=== PATIENT | male | born 1935 | race Caucasian/White ===

== ENCOUNTER 2017-05-22 15:17 | Inpatient (IN) | payer MEDICARE ==
[~2017-05-22] VITALS: Ht 190.5 cm; Wt 110.0 kg
[2017-05-22] VITALS (13 sets, daily range): BP systolic 116–213; BP diastolic 55–95; PULSE 86–100; RESP 16–22; TEMP 97.6–99.7; O2SAT 95–100
[~2017-05-22 15:17] MED LIST: ASPI81 PO; ATOR20TA42 PO; CLOP75 PO; COUM5TAB PO; DOXA1TAB3 PO; GARL500T PO; LISI2.5T3 PO; TAB-TAB PO; TOPR100T15 PO; VITA500T10 PO
[2017-05-22] MEDS ORDERED: SODIUM CHLORIDE 0.9% FLUSH 10 ML FLUSH IVF PRN (15:30)
[2017-05-22] MEDS ORDERED: ETOMIDATE 40 MG/20 ML VIAL ONE (15:36)
[2017-05-22] MEDS ORDERED: PROPOFOL 1000 MG/100 ML INJ 100 ML ONE (15:45)
[2017-05-22] MEDS ORDERED: ETOMIDATE 20 MG/10 ML VIAL IV PUSH ONE (16:00)
[2017-05-22] MEDS ORDERED: ROCURONIUM INJ 50 MG/5 ML VIAL IV ONE (16:00)
[2017-05-22] MEDS: PROPOFOL 1000 MG/100 ML INJ 100 ML IV SCH ×3 (16:17→23:37)
--- NOTE | 2017-05-22 16:30 | RADRPT ---
EXAM DATE/TIME: 05/22/2017 16:05 [facility] COMPARISON: No previous studies available for comparison. INDICATIONS : Post intubation. MEDICAL HISTORY : Unobtainable. SURGICAL HISTORY : Unobtainbale. ENCOUNTER: Initial ACUITY: 1 day PAIN SCORE: Non-responsive. LOCATION: Bilateral chest FINDINGS: Status post placement of an endotracheal tube which appears to be in good position. No pneumothorax. There is some mild infiltrates in both lung bases. The heart size is mildly enlarged. No definite ple ural effusions or pulmonary edema. The bony structures are grossly intact. CONCLUSION: 1. The ET tube appears to be in good position. 2. No pneumothorax. Jair Brantley MD on May 22, 2017 at 16:26 Board Certified Radiologist. This report was verified electronically.
[2017-05-22 16:42] LABS: AUTOMATED NEUTROPHIL # 16.2 TH/MM3 (1.8-7.7); BASOPHIL # 0.1 TH/MM3 (0-0.2); BASOPHIL % 0.4 % (0.0-2.0); EOSINOPHIL # 0.3 TH/MM3 (0-0.4); EOSINOPHIL % 1.4 % (0.0-4.0); HEMATOCRIT 36.3 % (39.0-51.0); HEMO FLAGS DIFF FINAL; LYMPH % 6.4 % (9.0-44.0); LYMPHOCYTE # 1.2 TH/MM3 (1.0-4.8); MEAN CELL VOLUME 98.7 FL (80.0-100.0); MEAN CORPUSCULAR HEMOGLOBIN 33.9 PG (27.0-34.0); MEAN CORPUSCULAR HGB CONC 34.4 % (32.0-36.0); MONO % 8.4 % (0.0-8.0); NEUT % 83.4 % (16.0-70.0); PLATELET COUNT 216 TH/MM3 (150-450); RED BLOOD COUNT 3.68 MIL/MM3 (4.50-5.90); RED CELL DISTRIBUTION WIDTH 14.1 % (11.6-17.2); WHITE BLOOD COUNT 19.5 TH/MM3 (4.0-11.0)
[2017-05-22 16:44] LABS: APTT (PATIENT) 38.2 SEC (24.3-30.1); INTERNATIONAL NORMALIZED RATIO 2.3 RATIO; PROTHROMBIN TIME - PATIENT 26.9 SEC (9.8-11.6)
[2017-05-22 17:08] LABS: ANION GAP 6 MEQ/L (5-15); BICARBONATE 25.5 MEQ/L (21.0-32.0); BLOOD UREA NITROGEN 26 MG/DL (7-18); CHLORIDE 103 MEQ/L (98-107); CREATINE KINASE 317 U/L (39-308); GLOMERULAR FILTRATION RATE 59 ML/MIN (>89); SODIUM (NA) 134 MEQ/L (136-145)
[2017-05-22 17:10] LABS: POTASSIUM 4.9 MEQ/L (3.5-5.1)
[2017-05-22 17:23] LABS: CKMB 3.2 NG/ML (0.5-3.6)
--- NOTE | 2017-05-22 17:26 | PD ---
HPI Chief Complaint: Fall Time Seen by Provider: 15:24 Travel History International Travel<30 days: No Contact w/Intl Traveler<30days: No Traveled to known affect area: No History of Present Illness HPI 81-year-old male arrives to the ER by EMS. He was seen at the outpatient office and there was found to have atrial fibrillation with RVR and a heart rate of 150. EMS was activated and administered diltiazem. The patient takes Coumadin due to a history of atrial fibrillation. He reports compliance. 1-1/ 2 days prior the patient was found on the floor in his house. The believes he walked into the doorway striking his left chest wall in the region of the clavicle and has since had increasing bruising and tenderness there. Earlier this morning he reported to his that it felt as though his throat was closing prompting primary care provider visit. Progression of the sensation of his throat closing was noted. Difficulty swallowing also noted. PFSH Past Medical History Atrial Fibrillation: Yes Cardiovascular Problems: Yes Coronary Artery Disease: Yes ?: Not Social History Alcohol Use: No Tobacco Use: Yes Substance Use: No Allergies-Medications (Allergen,Severity, Reaction): Coded Allergies: No Known Allergies (Verified , 01/07/08) Reported Meds & Prescriptions Reported Meds & Active Scripts Active Reported Coumadin (Warfarin) 5 Mg Tab 5 Mg PO DAILY Toprol XL (Metoprolol Succinate) 100 Mg Tab 100 Mg PO DAILY Lisinopril 2.5 Mg Tab 2.5 Mg PO DAILY Cardura (Doxazosin Mesylate) 1 Mg Tab 1 Mg PO DAILY Lipitor (Atorvastatin Calcium) 20 Mg Tab 20 Box PO HS Aspirin 81 Mg Chew 81 Mg CHEW DAILY Review of Systems Except as stated in HPI: all other systems reviewed are Neg General / Constitutional: No: Fever Respiratory: Positive: Shortness of Breath Physical Exam Narrative GENERAL: 81-year-old male well-nourished well-developed. patient's voice is somewhat hoarse SKIN: Focused skin assessment warm/dry. HEAD: Atraumatic. Normocephalic. EYES: Pupils equal and round. No scleral icterus. No injection or drainage. ENT: No nasal bleeding or discharge. Mucous membranes pink and moist. NECK: Contusion bruising is noted. No JVD. CARDIOVASCULAR: Regular rate and rhythm. No murmur appreciated. RESPIRATORY: Ecchymosis about the left neck and left anterior chest wall with prominent contusion/likely hematoma in the area. GASTROINTESTINAL: Abdomen soft, non-tender, nondistended. Hepatic and splenic margins not palpable. MUSCULOSKELETAL: No obvious deformities. No clubbing. No cyanosis. No edema. NEUROLOGICAL: Awake and alert. No obvious cranial nerve deficits. Motor grossly within normal limits. Normal speech. PSYCHIATRIC: Appropriate mood and affect; insight and judgment normal. Data Data Last Documented VS Vital Signs Date Time Temp Pulse Resp B/P Pulse Ox O2 Delivery O2 Flow Rate FiO2 05/22/17 17:50 95 100 05/22/17 16:29 100 16 213/88 Ventilator 05/22/17 15:38 2 05/22/17 15:22 97.6 Vital signs reviewed Orders Electrocardiogram (05/22/17 15:24) Basic Metabolic Panel (Bmp) (05/22/17 15:24) Ckmb (Isoenzyme) Profile (05/22/17 15:24) Complete Blood Count With Diff (05/22/17 15:24) Prothrombin Time / Inr (Pt) (05/22/17 15:24) Act Partial Throm Time (Ptt) (05/22/17 15:24) Troponin I (05/22/17 15:24) Chest, Single Ap (05/22/17 15:24) Ecg Monitoring (05/22/17 15:24) Iv Access Insert/Monitor (05/22/17 15:24) Oximetry (05/22/17 15:24) Oxygen Administration (05/22/17 15:24) Sodium Chloride 0.9% Flush (Ns Flush) (05/22/17 15:30) Etomidate Inj (Amidate Inj) (05/22/17 15:36) Propofol 1000 Mg/100 Ml Inj (Diprivan 10 (05/22/17 15:45) Etomidate Inj (Amidate Inj) (05/22/17 16:00) Rocuronium Inj (Zemuron Inj) (05/22/17 16:00) Propofol 1000 Mg/100 Ml Inj (Diprivan 10 (05/22/17 16:00) Ct Thorax/ Chest W Iv Contrast (05/22/17 ) CKMB (05/22/17 16:00) CKMB% (05/22/17 16:00) Arterial Blood Gas (Abg) (05/22/17 ) Diltiazem Inj (Cardizem Inj) (05/22/17 17:30) Ct Soft Tiss Neck W/O Iv Cont (05/22/17 ) Ct Brain W/O Iv Contrast(Rout) (05/22/17 17:39) Ceftriaxone Inj (Rocephin Inj) (05/22/17 18:00) Azithromycin Inj (Zithromax Inj) (05/22/17 18:00) Blood Culture (05/22/17 17:46) Iohexol 350 Inj (Omnipaque 350 Inj) (05/22/17 18:23) Hemoglobin (Hgb) (05/22/17 20:00) Labs Laboratory Tests Test 05/22/17 05/22/17 16:00 17:42 White Blood Count 19.5 TH/MM3 Red Blood Count 3.68 MIL/MM3 Hemoglobin 12.5 GM/DL Hematocrit 36.3 % Mean Corpuscular Volume 98.7 FL Mean Corpuscular Hemoglobin 33.9 PG Mean Corpuscular Hemoglobin 34.4 % Concent Red Cell Distribution Width 14.1 % Platelet Count 216 TH/MM3 Mean Platelet Volume 9.9 FL Neutrophils (%) (Auto) 83.4 % Lymphocytes (%) (Auto) 6.4 % Monocytes (%) (Auto) 8.4 % Eosinophils (%) (Auto) 1.4 % Basophils (%) (Auto) 0.4 % Neutrophils # (Auto) 16.2 TH/MM3 Lymphocytes # (Auto) 1.2 TH/MM3 Monocytes # (Auto) 1.6 TH/MM3 Eosinophils # (Auto) 0.3 TH/MM3 Basophils # (Auto) 0.1 TH/MM3 CBC Comment DIFF FINAL Differential Comment Prothrombin Time 26.9 SEC Prothromb Time International 2.3 RATIO Ratio Activated Partial 38.2 SEC Thromboplast Time Sodium Level 134 MEQ/L Potassium Level 4.9 MEQ/L Chloride Level 103 MEQ/L Carbon Dioxide Level 25.5 MEQ/L Anion Gap 6 MEQ/L Blood Urea Nitrogen 26 MG/DL Creatinine 1.19 MG/DL Estimat Glomerular Filtration 59 ML/MIN Rate Random Glucose 114 MG/DL Calcium Level 8.6 MG/DL Total Creatine Kinase 317 U/L Creatine Kinase MB 3.2 NG/ML Creatine Kinase MB % 1.0 % Troponin I LESS THAN 0.02 NG/ML Blood Gas Puncture Site LT RADIAL Blood Gas Patient Temperature 98.6 Blood Gas HCO3 23 mmol/L Blood Gas Base Excess -1.7 mmol/L Blood Gas Oxygen Saturation 98 % Arterial Blood pH 7.37 Arterial Blood Partial 41 mmHg Pressure CO2 Arterial Blood Partial 247 mmHG Pressure O2 Arterial Blood Oxygen Content 16.1 Vol % Arterial Blood 1.1 % Carboxyhemoglobin Arterial Blood Methemoglobin 0.7 % Blood Gas Hemoglobin 11.3 G/DL Blood Gas Ventilator Setting [facility] 16/500/5/100 Blood Gas Inspired Oxygen 100 % MDM Medical Decision Making Medical Screen Exam Complete: Yes Emergency Medical Condition: Yes Medical Record Reviewed: Yes Differential Diagnosis Anemia, compression of the airway, stridor, hypoxia, pneumothorax Narrative Course AG 6 AB.37/41/23 abgPo2 247 PRVC 16/500/5/100 INR 2.3 Total creatine kinase 317 Tn < 0.02 EKG: atrial fibrillation, rate 94 CBC & BMP Diagram 05/22/17 16:00 Last 24 hours Impressions Chest X-Ray 05/22/17 1524 Signed Impressions: Service Date/Time: , May 22, 2017 16:05 - CONCLUSION: 1. The ET tube appears to be in good position. 2. No pneumothorax. Jair Brantley MD Pt will be admitted to [facility]. D/w Dr Clifford. Critical Care Narrative Aggregate critical care time was 35 minutes. Time to perform other separately billable procedures was not included in the critical care time. My time did not include minutes spent treating any other patients simultaneously or on activities that did not directly contribute to the patient's treatment. The services I provided to this patient were to treat and/or prevent clinically significant deterioration that could result in: asphyxia, anoxia, cardiac arrest, respiratory arrest I provided critical care services requiring my management, as noted below: Chart data review, documentation time, medication orders and management, vital sign assessments/reviewing monitor data, ordering and reviewing lab tests, ordering and interpreting/reviewing x-rays and diagnostic studies, care of the patient and discussion of the patient with the admitting physicians. Procedures Procedure Narrative After the risks and benefits were discussed the following procedure was performed: INTUBATION: The patient was put in optimal position for the procedure. Rapid sequence intubation was initiated by me using 20 milligrams of etomidate IV and 50 milligrams of rocuronium IV. The patient was intubated with a 8-0 cuffed endotracheal tube. Tube placement was confirmed by visualization of the tube and balloon passing through the cords, capnometry and subsequent chest x-ray. Breath sounds were equal and well aerated bilaterally postintubation. No breath sounds over stomach. Patient tolerated procedure well. Diagnosis Primary Impression: Hematoma of neck Qualified Code: S10.93XA - Hematoma of neck, initial encounter Additional Impressions: Stridor Atrial fibrillation Qualified Code: I48.91 - Atrial fibrillation, unspecified type Admitting Information Admitting Physician Requests: Admit Carlton Mayo MD May 22, 2017 17:25
[2017-05-22] MEDS ORDERED: DILTIAZEM HCL 25 MG/5 ML VIAL IV ONE (17:30)
[2017-05-22 17:47] LABS: BLOOD GAS BASE EXCESS -1.7 mmol/L (-2-2); BLOOD GAS CARBOXYHEMOGLOBIN 1.1 % (0-4); BLOOD GAS HCO3 23 mmol/L (22-26); BLOOD GAS METHEMOGLOBIN 0.7 % (0-2); BLOOD GAS O2 HGB SATURATION 98 % (90-100); BLOOD GAS OXYGEN CONTENT 16.1 Vol % (12.0-20.0); BLOOD GAS PCO2 41 mmHg (38-42); BLOOD GAS PO2 247 mmHG (61-120); BLOOD GAS TOTAL HGB 11.3 G/DL (12.0-16.0); TEMP CORR TO 98.6
[2017-05-22 17:48] LABS: CRITICAL VALUE YES; DRAW SITE LT RADIAL; FIO2 100 %; NUMBER OF ARTERIAL PUNCTURES 2; STAT YES; ULNAR PULSE Y
[2017-05-22] MEDS ORDERED: AZITHROMYCIN INJ 500 MG in SODIUM CHLOR 0.9% 250 ML INJ 250 ML IV ONE (18:00)
[2017-05-22] MEDS ORDERED: cefTRIAXone INJ 1,000 MG in SODIUM CHLORIDE 0.9% INJ 100 ML IV ONE (18:00)
[2017-05-22] MEDS ORDERED: IOHEXOL 350 MG/ML 10 ML VIAL (for RAD DIAG) IV ONE (18:23)
[2017-05-22] MEDS ORDERED: LISI2.5T3 PO (18:45)
[2017-05-22] MEDS ORDERED: TOPR100T PO (18:45)
[2017-05-22] MEDS ORDERED: CARD1TAB PO (18:45)
[2017-05-22] MEDS ORDERED: COUM5TAB PO (18:45)
[2017-05-22] MEDS ORDERED: ASPI81CH CHEW (18:45)
[2017-05-22] MEDS ORDERED: LIPI20TA PO (18:45)
--- NOTE | 2017-05-22 18:58 | RADRPT ---
EXAM DATE/TIME: 05/22/2017 18:00 [facility] COMPARISON: No previous studies available for comparison. INDICATIONS : Fall three days ago. RADIATION DOSE: 52.56 CTDIvol (mGy) MEDICAL HISTORY : Cardiovascular disease. SURGICAL HISTORY : None. ENCOUNTER: Initial ACUITY: 3 days PAIN SCALE: Non-responsive LOCATION: cranial TECHNIQUE: Multiple contiguous axial images were obtained of the head. Using automated exposure control and adj ustment of the mA and/or kV according to patient size, radiation dose was kept as low as reasonably a chievable to obtain optimal diagnostic quality images. DICOM format image data is available electro nically for review and comparison. FINDINGS: There is some streak artifact about the low convexity images due to motion. CEREBRUM: Ventricles are moderately enlarged, appropriate for age. There is a focal hypodensity adjacent to th e lateral margin of the frontal horn on the right side which measures 1 cm. This appears to extend i nto the anterior limb of the right internal capsule. No evidence of midline shift. No evidence of e xtra-axial fluid or blood. No intraventricular blood. POSTERIOR FOSSA: The cerebellum and brainstem are intact. The 4th ventricle is midline. The cerebellopontine angle i s unremarkable. EXTRACRANIAL: The visualized portion of the orbits is intact. SKULL: The calvaria is intact. No evidence of skull fracture. CONCLUSION: 1 cm hypodensity in the right caudate and internal capsule may represent an old infarction. However, in the absence of prior films and with the history of recent trauma, recommend further characterizat ion of this finding with MRI of brain with and without contrast. Matthew Hill MD on May 22, 2017 at 18:52 Board Certified Radiologist. This report was verified electronically.
--- NOTE | 2017-05-22 19:06 | RADRPT ---
EXAM DATE/TIME: 05/22/2017 18:15 This report includes an Addendum and supersedes previous reports for this exam. [facility] COMPARISON: No previous studies available for comparison. INDICATIONS : Shortness of breath, left neck mass. IV CONTRAST: 60 cc Omnipaque 350 (iohexol) IV RADIATION DOSE: 9.45 CTDIvol (mGy) MEDICAL HISTORY : Cardiovascular disease. SURGICAL HISTORY : None. ENCOUNTER: Initial ACUITY: 3 days PAIN SCALE: Non-responsive LOCATION: chest TECHNIQUE: Volumetric scanning of the chest was performed. Using automated exposure control and adjustment of t he mA and/or kV according to patient size, radiation dose was kept as low as reasonably achievable to obtain optimal diagnostic quality images. DICOM format image data is available electronically for review and comparison. FINDINGS: LUNGS: There are patchy areas of infiltrate in the posterior lower lungs bilaterally, right greater than lef t. There is also a solitary nodular density at the lateral lower right lung adjacent to the pleura m easuring 12 mm. PLEURA: There is no pleural thickening or pleural effusion. MEDIASTINUM: There is a 2.6 cm oval mass in the right paraspinal region extending from subcarinal inferiorly 4 cm. No evidence of middle mediastinal adenopathy. The trachea and esophagus is deviated towards the ri ght. AXILLAE: There is some induration of the fat in the left axilla, but no axillary adenopathy seen. SKELETAL: Within normal limits for patient age. MISCELLANEOUS: There is same multilobular dominant mass in the left supraclavicular region which measures 11.3 cm in width and 7.7 cm in superior-inferior extent. The mass does extend posterior to the clavicle and ap pears to have at least 2 components which are in contact with each other. Mean CT density 66 Hounsfi eld units. No associated calcifications. 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 There is also a midthorac ic right paraspinal mass measuring 4 cm in superior-inferior extent and an 11 mm right pulmonary nodu le. Recommend PET/CT scan to evaluate metabolic behavior and to help in decision making regarding bi opsy planning. Matthew Hill MD on May 22, 2017 at 18:57 Board Certified Radiologist. This report was verified electronically. ADDENDUM: Additional history is now available; recent fall and the patient is on anticoagulation. The large ma ss in the left supraclavicular region has an appearance which is entirely consisted with a hematoma. The mediastinal adenopathy in the 1 cm nodule, however, are not characteristic of trauma. Recommend performing followup CT in one month specifically does the if the lung and mediastinal findings persi st and if so, then consideration of PET/CT scan. Matthew Hill MD on May 22, 2017 at 20:23 Board Certified Radiologist. This report was verified electronically.
--- NOTE | 2017-05-22 19:25 | RADRPT ---
EXAM DATE/TIME: 05/22/2017 18:00 [facility] COMPARISON: CT THORAX W CONTRAST, May 22, 2017, 18:15. INDICATIONS : Left neck mass impinging on trachea. RADIATION DOSE: 48.33 CTDIvol (mGy) MEDICAL HISTORY : Cardiovascular disease. SURGICAL HISTORY : None. ENCOUNTER: Initial ACUITY: 3 days PAIN SCORE: Non-responsive LOCATION: Left neck TECHNIQUE: Volumetric scanning of the neck was performed. Using automated exposure control and adjustment of th e mA and/or kV according to patient size, radiation dose was kept as low as reasonably achievable to obtain optimal diagnostic quality images. DICOM format image data is available electronically for re view and comparison. FINDINGS: There is a dominant mass in the left supraclavicular region which appears to have 2 separate componen ts, one solid and located medially and the other having a portion which is low density and located ad jacent to the other lesion, but more lateral. The mass in total measures in excess of 11.4 cm in anthony gth. There is also prominent induration of the supraclavicular and subcutaneous fat. There is a 3rd component which is separate from the supraclavicular component which is in the posterior triangle of the lower left neck and appears to surround the scapular spine. The trachea is deviated towards the right. There is homogeneous enhancement in the thyroid gland without evidence of nodule. Preverteb ral soft tissues are normal thickness. No evidence of adenopathy in the lateral compartment of the l eft or right neck. The osseous structures are grossly intact other than degenerative changes in the posterior elements of the lower cervical spine. CONCLUSION: Abnormal appearance the left supraclavicular region with greater the 11 cm mass which probably repres ents 3 adjacent components in contact with each other. One of the components has cystic or necrotic area. There is also a 4th opacity in the posterior lower left neck which surrounds the scapular spin e and is more infiltrative in appearance. The findings are highly suspicious for malignancy. Matthew Hlil MD on May 22, 2017 at 19:17 Board Certified Radiologist. This report was verified electronically.
--- NOTE | 2017-05-22 19:45 | HHI.HP ---
HPI Service Critical Care Medicine Primary Care Physician Unknown Admission Diagnosis Neck Hematoma, Stridor, Intubation Diagnosis: Travel History International Travel<30 Days: No Contact w/Intl Traveler <30 Da: No Traveled to Known Affected Are: No History of Present Illness 81 WM with PMH of HTN, Atrial fibrillation with RVR on chronic anticoagulation with warfarin, CAD with prior stent, anklyosing spondylitis who was visiting his son in [place] when he fell on 05/20/17 at 01:30 in the morning when he got up to go to the bathroom. He developed some bruising of his left shoulder when he reportedly hit it on the doorway. He had no LOC or reported head trauma and his mental status was baseline.. He required assistance from family members to get back up. He was able to move his shoulder well so they did not seek medical attention. His supraclavicular region was very swollen the next day. At around 3 am today he awoke complaining of difficulty breathing and difficulty swallowing. While on an airline flight returning home today, his noted that his voice was changing. He did not eat anything all day because of the difficulty with swallowing. He immediately went to his primary care physician's office, Dr. Yanely Cantu, who immediately requested [facility] for transfer. Upon arrival to the ED he was noted to have stridor with large hematoma L supraclavicular region, swelling of left neck, ecchymosis overlying left chest wall.. He was intubated for maintenance of airway by Dr. Mayo without difficulty. He was also in A fib RVR with rate in 150s, now rate controlled after Cardizem [address] chest demonstrates 11 cm mass left supraclavicular region that per discussion with Dr. Hill is consistent with hematoma from fall. There is a 1.1 cm Right pulmonary nodule, 2.6 cm subcarinal mass and mediastinal lymphadenopathy which he recommends followup with CT chest in about 2 weeks after post traumatic changes resolve and, if persist, followup with PET. His INR is 2.3. His states that yesterday the neck and shoulder was more swollen than today but that the bruising is much worse today. He has recently been followed by Dr. Harry as an outpatient for 18 month history of cough. His states he had CXR but no prior CT chest. He was on 30 day course of predisone for Ankylosing spondylitis, completed 2 weeks ago. Reportedly had a "steroid shot" in Dr. Harry's office 2 weeks ago. Review of Systems ROS Limitations: Clinical Condition, Intubated Past Family Social History Allergies: Coded Allergies: No Known Allergies (Verified , 01/07/08) Past Medical History HTN Atrial fibrillation with chronic anticoagulation with warfarin for over 15 years Hyperlipidemia CAD with OK with stents 12-13 years ago. Ankylosing spondylitis - Was on 30 day course of prednisone. Stopped prednisone 2 weeks. Took injection of steroid [address] Harry for cough. Seasonal allergies Sleep apnea - not compliant with CPAP PAD h/o recurrent UTI prior to TURP Reactive airway disease Vitamin D deficiency Basal cell carcinoma face GERD; Recinos's esophagus Mild dementia Iron deficiency anemia Past Surgical History EGD - Dr. Ibarra? Recinos's esophagus Choleystectomy Lumbar diskectomy 25 years ago. Eye procedure for ocular Varicella Zoster, L eye. Basal cell carcinoma resected face bilateral temples TURP 10/2016 Reported Medications Med rec had several medications listed which patient's states he is no longer taking. I have discontinued them from med rec. She states his current meds are: Warfarin 5 mg po daily MTW, 2.5 mg daily , Fri, Fri , Sun Metoprolol 25 mg po daily Supplements: Red yeast rice Vitamin D Vitamin C Co Q 10 PerserVision Family History Father of liver cancer at age 69. Mother lived to age 93. Sister with breast cancer Sister with lung cancer Social History quit smoking age 35 Occasional EtOH now. Used to drink 13-14 beers per day in his 30s through 50s and then quit when he had OK. No illicit drug use. Ambulates with assistance of cane/walker Physical Exam Vital Signs Vital Signs Date Time Temp Pulse Resp B/P Pulse Ox O2 Delivery O2 Flow Rate FiO2 05/22/17 19:07 100 50 05/22/17 18:58 86 16 151/68 99 Auto-Vent 50 05/22/17 17:50 95 100 05/22/17 16:29 100 16 213/88 100 Ventilator 05/22/17 15:55 100 100 05/22/17 15:38 99 Nasal Cannula 2 05/22/17 15:38 99 05/22/17 15:22 97.6 93 22 130/73 96 Physical Exam Drips: Propofol 40 mcg/kg/min. GENERAL: Elderly male who is orotracheally intubated, sedated. HEAD: Normocephalic. EYES: Pupils equal and round, 3mm reactive bilaterally. No scleral icterus. No injection or drainage. ENT: Mucous membranes pink and moist. No nasal bleeding. NECK: Swelling over left neck from inferior to left mastoid process and then radiating anteriorly. Trachea deviated to right. Ecchymosis and palpable hematoma L supraclavicular space, size of a large lemon. Ecchymosis extends along left chest wall just superior to the nipple and then radiating to more inferiorly along lateral ribs. CARDIOVASCULAR: irregularly irregular, rate in 80s, A fib on monitor. No murmurs rubs or gallops. RESPIRATORY: No accessory muscle use. Clear to auscultation. Breath sounds equal bilaterally. GASTROINTESTINAL: Abdomen soft, non-tender, nondistended. Bowel sounds present: : Harvey in place with yellow urine output. MUSCULOSKELETAL: Extremities without clubbing, cyanosis. There is swelling of left elbow at the olecrenon. Dressing in place. Radial pulses palpable bilaterally. NEUROLOGICAL: Eyes flutter open to voice. No obvious cranial nerve deficits. Follows commands with hand squeeze bilaterally and with moving bilateral lower extremities. Laboratory Laboratory Tests Test 05/22/17 05/22/17 16:00 17:42 White Blood Count 19.5 Red Blood Count 3.68 Hemoglobin 12.5 Hematocrit 36.3 Mean Corpuscular Volume 98.7 Mean Corpuscular Hemoglobin 33.9 Mean Corpuscular Hemoglobin 34.4 Concent Red Cell Distribution Width 14.1 Platelet Count 216 Mean Platelet Volume 9.9 Neutrophils (%) (Auto) 83.4 Lymphocytes (%) (Auto) 6.4 Monocytes (%) (Auto) 8.4 Eosinophils (%) (Auto) 1.4 Basophils (%) (Auto) 0.4 Neutrophils # (Auto) 16.2 Lymphocytes # (Auto) 1.2 Monocytes # (Auto) 1.6 Eosinophils # (Auto) 0.3 Basophils # (Auto) 0.1 CBC Comment DIFF FINAL Differential Comment Prothrombin Time 26.9 Prothromb Time International 2.3 Ratio Activated Partial 38.2 Thromboplast Time Sodium Level 134 Potassium Level 4.9 Chloride Level 103 Carbon Dioxide Level 25.5 Anion Gap 6 Blood Urea Nitrogen 26 Creatinine 1.19 Estimat Glomerular Filtration 59 Rate Random Glucose 114 Calcium Level 8.6 Total Creatine Kinase 317 Creatine Kinase MB 3.2 Creatine Kinase MB % 1.0 Troponin I LESS THAN 0.02 Blood Gas Puncture Site LT RADIAL Blood Gas Patient Temperature 98.6 Blood Gas HCO3 23 Blood Gas Base Excess -1.7 Blood Gas Oxygen Saturation 98 Arterial Blood pH 7.37 Arterial Blood Partial 41 Pressure CO2 Arterial Blood Partial 247 Pressure O2 Arterial Blood Oxygen Content 16.1 Arterial Blood 1.1 Carboxyhemoglobin Arterial Blood Methemoglobin 0.7 Blood Gas Hemoglobin 11.3 Blood Gas Ventilator Setting [facility] 16/500/5/100 Blood Gas Inspired Oxygen 100 Date/Time Procedure Status Source Growth 05/22/17 18:25 Aerobic Blood Culture Received Blood Peripheral Pending 05/22/17 18:25 Anaerobic Blood Culture Received Blood Peripheral Pending Result Diagram: 05/22/17 1600 05/22/17 1600 Assessment and Plan Problem List: (1) Atrial fibrillation ICD Code: I48.91 Status: Acute (2) Stridor ICD Code: R06.1 Status: Acute (3) Hematoma of neck ICD Code: S10.93XA Status: Acute (4) Mild dementia ICD Code: F03.90 Status: Acute (5) HLD (hyperlipidemia) ICD Code: E78.5 Status: Acute (6) Fall ICD Code: W19.XXXA Status: Acute (7) Leukocytosis ICD Code: D72.829 Status: Acute (8) Hyponatremia ICD Code: E87.1 Status: Acute (9) CAD (coronary artery disease) ICD Code: I25.10 Status: Chronic (10) Coagulopathy ICD Code: D68.9 Status: Chronic (11) Essential hypertension ICD Code: I10 Status: Chronic (12) Acute respiratory failure ICD Code: J96.00 Status: Acute (13) Ankylosing spondylitis ICD Code: M45.9 Status: Chronic (14) Anemia associated with acute blood loss ICD Code: D62 Status: Acute (15) H/O tobacco use, presenting hazards to health ICD Code: Z87.891 Status: Chronic (16) Contusion of elbow, left ICD Code: S50.02XA Status: Acute Assessment and Plan NEURO: Fall History of mild dementia Propofol for sedation Target RASS -2 CT brain - 1 cm hypodensity and right caudate and internal capsule which may represent an old infarction. MRI with and without contrast recommended. states patient has never had brain imaging in the past. Will obtain MRI. RESP: Acute respiratory failure secondary to Large L supraclavicular hematoma (11 cm) , swelling Left posterior neck causing trachea shift and airway compromise History of tobacco abuse Ankylosing spondylitis 1.17 cm right pulmonary nodule Intubated by ED physician for airway maintenance 05/22. Suspect he will require intubation for few days while hematoma and edema resolve. Ventilator Bundle. Albuterol every [address] chest/neck 1.1 cm R pulmonary nodule, peripherally located adjacent to pleura. 2.6 cm mass in right paraspinous region, extending from subcarinal level. 11.3 cm x 7.3 cm L supraclavicular hematoma. Extends posterior to clavicle. No active extravasation. Discussed with Dr. Hill. Recommends repeat CT in 2-4 weeks and if these findings persist, obtain outpatient PET scan. Patient is known to Dr. Harry. Will consult pulmonology to ensure followup of pulmonary nodule. CV: Atrial fibrillation with RVR on chronic anticoagulation with warfarin. Hypertension History of hyperlipidemia Coronary artery disease with prior stents about 12 years ago Atrial fibrillation is currently rate controlled in the 80s after cardizem bolus , will monitor. Home dose of metoprolol succinate is 25 mg daily, on hold currently as SBP is in 100s on propofol for sedation. Patient was no longer on statin per so removed from med rec. Hold warfarin as per below. Obtain 2 D Echo given chronic SOB/cough. GI: GERD Recinos's esophagus OGT LIWS FEN/RENAL: Mild hyponatremia Harvey in place. Monitor intake and output. Monitor electrolytes. Replace electrolytes as indicated per ICU electrolyte replacement protocol. D5 0.9 NaCl at 84 mL per hour ID: Aspiration Blood cultures have been sent in ED. Obtain sputum culture. He seems azithromycin and Rocephin in the ED. We'll cover with Zosyn 3.375 IV every 6 hours to cover for aspiration pneumonia. CT chest - bilateral infiltrates posterior lower lung mcbride.(in addition to above discussed finding) HEME: Anemia Coagulopathy secondary to chronic warfarin Hemoglobin is 12.5 with no recent priors for comparison (hemoglobin 14.5 12/2007) . Has very large hematoma with clinical worsening over the last 24 hours, though this admittedly may be due to worsening edema around the hematoma rather than hematoma expansion. Nonetheless at this point, given airway compromise and risk for more prolonged intubation if hematoma expands, will address coagulopathy with vitamin K 5 mg IV (unable to give po route because ED unable to place OGT). Hold warfarin. Repeat INR in am. ENDO: Euglycemic.The patient was previously on 30 day course of prednisone; off prednisone x 2weeks. Monitor for evidence of relative adrenal insufficiency. MSK: Acute left elbow contusion F/u xray left elbow. PROPH: Hold pharmacologic DVT prophylaxis due to INR 2.3, hematoma. SCDs for DVT prophylaxis. Protonix 40 mg IV daily for stress ulcer prophylaxis and history of GERD ACCESS: Peripheral IV providing adequate access at this time. PT consult Called and updated. Discussed with radiologist, Dr. Hill. Discussed with Dr. Mayo and discussed with ED RN Level 3 H and P. Problem Qualifiers (1) Atrial fibrillation: Qualified Code: I48.91 - Atrial fibrillation, unspecified type (2) Hematoma of neck: Qualified Code: S10.93XA - Hematoma of neck, initial encounter Hannah Clifford MD May 22, 2017 19:45
[2017-05-22] MEDS ORDERED: PHYTONADIONE INJ 10 MG in SODIUM CHLORIDE 0.9% INJ 50 ML IV ONE (20:15)
[2017-05-22 20:34] LABS: BLOOD, URINE NEG (NEG); COMMENT (UR) CATH-CULTURE IND; CULTURE IF INDICATED CATH CULTURE IND; GLUCOSE,URINE NEG (NEG); HYALINE CAST, URINE 6 /lpf (RARE); KETONE, URINE NEG (NEG); MUCUS URINE FEW /lpf (OCC); NITRITE,URINE NEG (NEG); PH, URINE 5.5 (5.0-8.5); SQUAMOUS EPITHELIAL CELL URINE 1 /hpf (0-5); URINE COLOR YELLOW (YELLW/STRAW)
[2017-05-22] MEDS ORDERED: PHYTONADIONE 10 MG/D5W 50 ML IV ONE ×2 (20:45)
[2017-05-22] MEDS ORDERED: PHYTONADIONE IV ONE (21:00)
[2017-05-22] MEDS ORDERED: SODIUM CHLORIDE 0.9% IV ONE (21:00)
[2017-05-22] MEDS ORDERED: ACETAMINOPHEN 325 MG TAB PO PRN (21:15)
[2017-05-22] MEDS ORDERED: RESP: ALBUTEROL 2.5 MG/3 ML NEB (PRN) INH (21:15)
[2017-05-22] MEDS ORDERED: LACTULOSE SYRUP 20 GM/30 ML CUP PO PRN (21:15)
[2017-05-22] MEDS ORDERED: CHLORHEXIDINE GLUCONATE 2 % 1 PACK (2 CLOTHS) TOP PRN (21:15)
[2017-05-22] MEDS ORDERED: ONDANSETRON HCL 4 MG/2 ML VIAL IV PRN (21:15)
[2017-05-22] MEDS ORDERED: BISACODYL 10 MG SUPP RECTAL PRN (21:15)
[2017-05-22] MEDS ORDERED: SENNOSIDES 8.6 MG TAB PO PRN (21:15)
[2017-05-22] MEDS ORDERED: MISCELLANEOUS NURSING INFORMATION XX SCH (21:15)
[2017-05-22] MEDS ORDERED: SODIUM CHLORIDE 0.9% FLUSH 10 ML FLUSH IV FLUSH PRN (21:15)
[2017-05-22] MEDS ORDERED: MAGNESIUM HYDROXIDE SUSP 30 ML CUP PO PRN (21:15)
[2017-05-22] MEDS: PIPERACIL-TAZO 3.375 GM PREMIX 50 ML IV SCH (21:42)
[2017-05-22] MEDS: DEXT 5%-NACL 0.9% 1000 ML INJ 1,000 ML IV SCH (21:42)
[2017-05-22] MEDS ORDERED: POTASSIUM CHLOR 40 MEQ PREMIX 100 ML IV PRN ×2 (21:45)
[2017-05-22] MEDS ORDERED: POTASSIUM PHOSPHATE INJ 30 MMOL in SODIUM CHLOR 0.9% 250 ML INJ 250 ML IV PRN (21:45)
[2017-05-22] MEDS ORDERED: POTASSIUM PHOSPHATE MONOBASIC 500 MG TAB PO/TUBE PRN (21:45)
[2017-05-22] MEDS ORDERED: POTASSIUM CHLORIDE 25 MEQ EFFERVESCENT TAB PO PRN (21:45)
[2017-05-22] MEDS ORDERED: MAGNESIUM SULFATE INJ 2 GM in SODIUM CHLORIDE 0.9% INJ 96 ML IV PRN (21:45)
[2017-05-22] MEDS ORDERED: MAGNESIUM SULFATE INJ 4 GM in SODIUM CHLORIDE 0.9% INJ 92 ML IV PRN (21:45)
[2017-05-22] MEDS ORDERED: POTASSIUM CHLOR 20 MEQ PREMIX 100 ML IV PRN ×2 (21:45)
[2017-05-22] MEDS ORDERED: SODIUM PHOSPHATE INJ 30 MMOL in SODIUM CHLOR 0.9% 250 ML INJ 240 ML IV PRN (21:45)
[2017-05-22] MEDS ORDERED: POTASSIUM PHOSPHATE MONOBASIC 500 MG TAB PO PRN (21:45)
[2017-05-22] MEDS ORDERED: MAGNESIUM OXIDE 400 MG TAB PO PRN (21:45)
[2017-05-23] VITALS (19 sets, daily range): BP systolic 91–147; BP diastolic 56–86; PULSE 91–114; RESP 16–20; TEMP 98.3–98.7; O2SAT 97–100
[2017-05-23] MEDS: PROPOFOL 1000 MG/100 ML INJ 100 ML IV SCH ×7 (01:11→20:46)
[2017-05-23] MEDS: CHLORHEXIDINE GLUCONATE 2 % 1 PACK (2 CLOTHS) TOP SCH ×2 (04:00→20:46)
[2017-05-23] MEDS: PIPERACIL-TAZO 3.375 GM PREMIX 50 ML IV SCH ×4 (04:15→20:46)
--- NOTE | 2017-05-23 05:23 | RADRPT ---
EXAM DATE/TIME: 05/23/2017 04:04 [facility] COMPARISON: No previous studies available for comparison. INDICATIONS : Pain and laceration to left elbow. MEDICAL HISTORY : None. SURGICAL HISTORY : None. ENCOUNTER: Initial ACUITY: 1 day PAIN SCORE: Non-responsive. LOCATION: Left Elbow FINDINGS: Two view examination of the left elbow demonstrates no soft tissue swelling, joint effusion, fracture or dislocation. Bony mineralization is normal. CONCLUSION: No acute fracture/effusion. Lopez Carrillo MD on May 23, 2017 at 5:21 Board Certified Radiologist. This report was verified electronically.
[2017-05-23] MEDS ORDERED: cefTRIAXone INJ 1,000 MG in SODIUM CHLORIDE 0.9% INJ 100 ML IV SCH (06:00)
[2017-05-23 06:01] LABS: AUTOMATED NEUTROPHIL # 12.1 TH/MM3 (1.8-7.7); BASOPHIL % 0.1 % (0.0-2.0); EOSINOPHIL # 0.1 TH/MM3 (0-0.4); EOSINOPHIL % 0.3 % (0.0-4.0); HEMO FLAGS DIFF FINAL; LYMPH % 8.4 % (9.0-44.0); LYMPHOCYTE # 1.2 TH/MM3 (1.0-4.8); MEAN CORPUSCULAR HEMOGLOBIN 32.2 PG (27.0-34.0); MEAN CORPUSCULAR HGB CONC 32.8 % (32.0-36.0); MONO % 8.7 % (0.0-8.0); NEUT % 82.5 % (16.0-70.0); PLATELET COUNT 174 TH/MM3 (150-450); RED BLOOD COUNT 3.47 MIL/MM3 (4.50-5.90); WHITE BLOOD COUNT 14.7 TH/MM3 (4.0-11.0)
[2017-05-23 06:06] LABS: INTERNATIONAL NORMALIZED RATIO 1.4 RATIO; PROTHROMBIN TIME - PATIENT 15.2 SEC (9.8-11.6)
[2017-05-23 06:25] LABS: ALT (GPT) 26 U/L (12-78); ANION GAP 8 MEQ/L (5-15); AST (GOT) 21 U/L (15-37); BICARBONATE 25.3 MEQ/L (21.0-32.0); BLOOD UREA NITROGEN 22 MG/DL (7-18); CHLORIDE 105 MEQ/L (98-107); GLOMERULAR FILTRATION RATE 69 ML/MIN (>89); MAGNESIUM 1.9 MG/DL (1.5-2.5); POTASSIUM 4.4 MEQ/L (3.5-5.1); SODIUM (NA) 138 MEQ/L (136-145)
[2017-05-23 06:26] LABS: ALKALINE PHOSPHATASE 84 U/L (45-117); TOTAL BILIRUBIN ADULT 1.1 MG/DL (0.2-1.0)
[2017-05-23] MEDS: SODIUM CHLORIDE 0.9% FLUSH 10 ML FLUSH IV FLUSH SCH ×2 (08:13→20:46)
[2017-05-23] MEDS: PANTOPRAZOLE SODIUM 40 MG VIAL IV SCH (08:13)
[2017-05-23] MEDS: DOCUSATE SODIUM 50 MG/SENNA 8.6 MG TAB PO SCH ×2 (08:13→20:46)
[2017-05-23] MEDS: CHLORHEXIDINE 0.12% (ORAL KIT) 15 ML CUP MT SCH ×2 (08:14→20:00)
[2017-05-23] MEDS: DEXT 5%-NACL 0.9% 1000 ML INJ 1,000 ML IV SCH (08:14)
--- NOTE | 2017-05-23 10:27 | HHI.CCPN ---
Subjective Remarks/Hospital Course Hospital Course: 81 WM with PMH of HTN, Atrial fibrillation with RVR on chronic anticoagulation with warfarin, CAD with prior stent, anklyosing spondylitis who was visiting his son in [place] when he fell on 05/20/17 at 01:30 in the morning when he got up to go to the bathroom. He developed some bruising of his left shoulder when he reportedly hit it on the doorway. He had no LOC or reported head trauma and his mental status was baseline.. He required assistance from family members to get back up. He was able to move his shoulder well so they did not seek medical attention. His supraclavicular region was very swollen the next day. At around 3 am today he awoke complaining of difficulty breathing and difficulty swallowing. While on an airline flight returning home today, his noted that his voice was changing. He did not eat anything all day because of the difficulty with swallowing. He immediately went to his primary care physician's office, Dr. Yanely Cantu, who immediately requested [facility] for transfer. Upon arrival to the ED he was noted to have stridor with large hematoma L supraclavicular region, swelling of left neck, ecchymosis overlying left chest wall.. He was intubated for maintenance of airway by Dr. Mayo without difficulty. He was also in A fib RVR with rate in 150s, now rate controlled after Cardizem [address] chest demonstrates 11 cm mass left supraclavicular region that per discussion with Dr. Hill is consistent with hematoma from fall. There is a 1.1 cm Right pulmonary nodule, 2.6 cm subcarinal mass and mediastinal lymphadenopathy which he recommends followup with CT chest in about 2 weeks after post traumatic changes resolve and, if persist, followup with PET. His INR is 2.3. His states that yesterday the neck and shoulder was more swollen than today but that the bruising is much worse today. He has recently been followed by Dr. Harry as an outpatient for 18 month history of cough. His states he had CXR but no prior CT chest. He was on 30 day course of predisone for Ankylosing spondylitis, completed 2 weeks ago. Reportedly had a "steroid shot" in Dr. Harry's office 2 weeks ago. Subjective: 05/23: patient is intubated and sedated. laryngeal edema unchanged. per family, left chest/supraclavicular hematoma significantly smaller than yesterday, although still with some apparent mass effect on the anterior neck. awaiting MRI. Objective Vital Signs Date Time Temp Pulse Resp B/P Pulse Ox O2 Delivery O2 Flow Rate FiO2 05/23/17 08:00 96 05/23/17 08:00 50 05/23/17 08:00 98.3 17 111/56 97 05/22/17 22:11 Ventilator 2 Intake and Output 05/22/17 05/22/17 05/23/17 08:00 16:00 00:00 Intake Total 475 ml Output Total 750 ml Balance -275 ml Result Diagram: 05/23/17 0450 05/23/17 0450 Other Results Laboratory Tests Test 05/22/17 17:42 Blood Gas Puncture Site LT RADIAL Blood Gas Patient Temperature 98.6 Blood Gas HCO3 23 mmol/L (22-26) Blood Gas Base Excess -1.7 mmol/L (-2-2) Blood Gas Oxygen Saturation 98 % (90-100) Arterial Blood pH 7.37 (7.380-7.420) Arterial Blood Partial 41 mmHg (38-42) Pressure CO2 Arterial Blood Partial 247 mmHG Pressure O2 (61-120) Arterial Blood Oxygen Content 16.1 Vol % (12.0-20.0) Arterial Blood 1.1 % (0-4) Carboxyhemoglobin Arterial Blood Methemoglobin 0.7 % (0-2) Blood Gas Hemoglobin 11.3 G/DL (12.0-16.0) Blood Gas Ventilator Setting [facility] 16/500/5/100 Blood Gas Inspired Oxygen 100 % Objective Remarks GENERAL: Elderly male who is orotracheally intubated, sedated. HEAD: Normocephalic. EYES: Pupils equal and round, 3mm reactive bilaterally. No scleral icterus. No injection or drainage. ENT: Mucous membranes pink and moist. No nasal bleeding. NECK: Swelling over left neck from inferior to left mastoid process and then radiating anteriorly. Trachea appears more midline than previously documented. Ecchymosis and palpable hematoma L supraclavicular space. Ecchymosis extends along left chest wall just superior to the nipple and then radiating to more inferiorly along lateral ribs. CARDIOVASCULAR: irregularly irregular, rate in 80s, A fib on monitor. RESPIRATORY: No accessory muscle use. Clear to auscultation. Breath sounds equal bilaterally. GASTROINTESTINAL: Abdomen soft, non-tender, nondistended. : Harvey in place with yellow urine output. MUSCULOSKELETAL: Extremities without clubbing, cyanosis. There is swelling of left elbow at the olecrenon. Dressing in place. NEUROLOGICAL: RASS -3. does not follow commands for me this morning, sedated. w/ d x 4. A/P Problem List: (1) Atrial fibrillation ICD Code: I48.91 Status: Acute (2) Stridor ICD Code: R06.1 Status: Acute (3) Hematoma of neck ICD Code: S10.93XA Status: Acute (4) Mild dementia ICD Code: F03.90 Status: Acute (5) HLD (hyperlipidemia) ICD Code: E78.5 Status: Acute (6) Fall ICD Code: W19.XXXA Status: Acute (7) Leukocytosis ICD Code: D72.829 Status: Acute (8) Hyponatremia ICD Code: E87.1 Status: Acute (9) CAD (coronary artery disease) ICD Code: I25.10 Status: Chronic (10) Coagulopathy ICD Code: D68.9 Status: Chronic (11) Essential hypertension ICD Code: I10 Status: Chronic (12) Acute respiratory failure ICD Code: J96.00 Status: Acute (13) Ankylosing spondylitis ICD Code: M45.9 Status: Chronic (14) Anemia associated with acute blood loss ICD Code: D62 Status: Acute (15) H/O tobacco use, presenting hazards to health ICD Code: Z87.891 Status: Chronic (16) Contusion of elbow, left ICD Code: S50.02XA Status: Acute Assessment and Plan Assessment: 81yM on chronic anticoagulation s/p mechanical fall with left neck/ chest wall hematoma and airway compromise. will sit at 60-90 degrees to allow for improved venous congestion drainage. steroids and small lasix challenge to minimize ongoing edema. keep sedated and intubated today given risk for airway compromise. In addition, per family, patient's neck mobility significantly limited given ankylosing spondylitis, and I would have a high concern for an anticipated difficult airway regardless of edema. High risk of decompensation in this medically complex patient. NEURO: Fall History of mild dementia Propofol for sedation Target RASS -2 CT brain - 1 cm hypodensity and right caudate and internal capsule which may represent an old infarction. MRI confirms old infarct. 05/23 RESP: Acute respiratory failure secondary to Large L supraclavicular hematoma (11 cm) , swelling Left posterior neck causing trachea shift and airway compromise History of tobacco abuse Ankylosing spondylitis 1.17 cm right pulmonary nodule Intubated by ED physician for airway maintenance 05/22. Suspect he will require intubation for few days while hematoma and edema resolve. Ventilator Bundle. Albuterol every [address] chest/neck 1.1 cm R pulmonary nodule, peripherally located adjacent to pleura. 2.6 cm mass in right paraspinous region, extending from subcarinal level. 11.3 cm x 7.3 cm L supraclavicular hematoma. Extends posterior to clavicle. No active extravasation. Discussed with Dr. Hill. Recommends repeat CT in 2-4 weeks and if these findings persist, obtain outpatient PET scan. Patient is known to Dr. Harry, following. -- decadron 4mg iv q6h x 24h -- lasix 20mg iv x 1 to obtain slight negative fluid balance to assist with edema. CV: Atrial fibrillation with RVR on chronic anticoagulation with warfarin. Hypertension History of hyperlipidemia Coronary artery disease with prior stents about 12 years ago Atrial fibrillation is currently rate controlled in the 80s after cardizem bolus , will monitor. Home dose of metoprolol succinate is 25 mg daily, on hold currently as SBP is in 100s on propofol for sedation. Patient was no longer on statin per so removed from med rec. Hold warfarin as per below. f/u 2d echo. GI: GERD Recinos's esophagus OGT LIWS hold TF for now. may need to start enteral nutrition by tomorrow if his airway edema does not resolve. FEN/RENAL: Mild hyponatremia Harvey in place. Monitor intake and output. Monitor electrolytes. Replace electrolytes as indicated per ICU electrolyte replacement protocol. saline lock iv lasix 20mg iv x 1. goal slightly negative to improve edema. ID: Aspiration Blood cultures have been sent in ED. Obtain sputum culture. He seems azithromycin and Rocephin in the ED. We'll cover with Zosyn 3.375 IV every 6 hours to cover for aspiration pneumonia. If cultures negative x 48h, will de- escalate therapy. CT chest - bilateral infiltrates posterior lower lung mcbride.(in addition to above discussed finding) HEME: Anemia Coagulopathy secondary to chronic warfarin Hemoglobin is 12.5 with no recent priors for comparison (hemoglobin 14.5 12/2007) . -- INR 1.4 this AM. recheck AM INR. will not anticoagulate at this point given risk of further airway compromise. ENDO: Euglycemic.The patient was previously on 30 day course of prednisone; off prednisone x 2weeks. Monitor for evidence of relative adrenal insufficiency. MSK: Acute left elbow contusion F/u xray left elbow. PROPH: Hold pharmacologic DVT prophylaxis due to hematoma. SCDs for DVT prophylaxis. Protonix 40 mg IV daily for stress ulcer prophylaxis and history of GERD ACCESS: Peripheral IV providing adequate access at this time. Problem Qualifiers (1) Atrial fibrillation: Qualified Code: I48.91 - Atrial fibrillation, unspecified type (2) Hematoma of neck: Qualified Code: S10.93XA - Hematoma of neck, initial encounter Lan Hammonds MD May 23, 2017 10:27
[2017-05-23] MEDS ORDERED: FUROSEMIDE 20 MG/2 ML VIAL IV PUSH ONE (10:30)
[2017-05-23] MEDS: DEXAMETHASONE SOD PHOS 4 MG/ML VIAL IV PUSH SCH ×3 (10:48→22:48)
[2017-05-23] MEDS ORDERED: GADODIAMIDE PF 287 MG/ML 5 ML VIAL (for RAD MRI) IV ONE (12:32)
--- NOTE | 2017-05-23 12:48 | RADRPT ---
EXAM DATE/TIME: 05/23/2017 11:46 [facility] COMPARISON: CT BRAIN W/O CONTRAST, May 22, 2017, 18:00. INDICATIONS : Abnormal prior CT with a prior head injury while on coumadin. CONTRAST: 22 cc Omniscan (gadodiamide) IV MEDICAL HISTORY : CAD, Afib, Dementai SURGICAL HISTORY : cardiac stents ENCOUNTER: Subsequent ACUITY: 2 day PAIN SCORE: Nonresponsive. LOCATION: cranial TECHNIQUE: Multiplanar, multisequence MRI of the brain was performed both prior to and following the administrat ion of paramagnetic contrast. FINDINGS: CEREBRUM: The ventricles are normal for age. There is bilateral cortical atrophy. There is an old infarct in th e right basal ganglia. No evidence of midline shift, mass lesion, hemorrhage or acute infarction. No extraaxial fluid collections are seen. The pituitary gland and suprasellar cistern are normal in co nfiguration. WHITE MATTER: There are chronic white matter changes bilaterally characteristic of ischemic edema on this patient. POSTERIOR FOSSA: The cerebellum and brainstem are intact. There are some chronic changes in the mid brain. The 4th ve ntricle is midline. The cerebellopontine angle is unremarkable. The cerebellar tonsils are normal in position. DIFFUSION IMAGING: No focal areas of restricted diffusion are seen. No evidence of acute infarction. EXTRACRANIAL: The visualized portions of the orbits and paranasal sinuses are unremarkable. POST-CONTRAST: No abnormal areas of parenchymal or dural enhancement. No evidence of blood-brain barrier breakdown. No enhancing masses or lesions. CONCLUSION: 1. 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 2. Bilateral cortical atrophy and chronic white matter changes. Jair Brantley MD on May 23, 2017 at 12:43 Board Certified Radiologist. This report was verified electronically.
--- NOTE | 2017-05-23 13:11 | MB ---
cc: ROMIE AMEZQUITA DATE OF CONSULTATION: 05/23/2017 REASON FOR CONSULTATION Respiratory failure and right neck swelling. HISTORY OF PRESENT ILLNESS This is an 81-year-old white male with a history of atrial fibrillation and hypertension who has been on anticoagulation with Coumadin. The patient has a previous history of coronary artery disease and ankylosing spondylitis. Apparently on the morning of May 20 he was going to the bathroom and fell hitting his left shoulder on the doorway. He was assisted by his family members to get up off the floor. He was doing fairly well for the next 48 hours but had a little swelling in the left supraclavicular region which became markedly worse. On 05/22/2017 the patient developed severe shortness of breath, trouble swallowing and had a hoarse voice. He was then brought to the emergency room and was noted to have a large hematoma in the left supraclavicular region. He was also in atrial fibrillation with RVR with a rate of 150. The patient had to be intubated due to airway compromise due to a large supraclavicular hematoma compressing the trachea on the left. He was also given Cardizem for his atrial fibrillation. The CT of the chest showed a 2.6 cm subcarinal mass and mediastinal adenopathy. Presently the patient is intubated and sedated on 40% FIO2. He is assisting the ventilator. He is hemodynamically stable. PAST MEDICAL HISTORY 1. History of coronary artery disease with stenting and previous myocardial infarct. 2. History of ankylosing spondylitis on prednisone. 3. History of seasonal allergies. 4. Obstructive sleep apnea, but not using a CPAP mask. 5. Hyperlipidemia. 6. Hypertension. 7. Previous UTI. 8. Prostatic enlargement and TURP. 9. Peripheral vascular disease. 10.Reactive airway disease. 11.History of basal cell carcinoma of the face. 12.Anemia. 13.Mild dementia. PAST SURGICAL HISTORY 1. Cholecystectomy. 2. Lumbar laminectomy. 3. Basal cell carcinoma resection on the face. 4. TURP for prostatic enlargement. 5. Esophagogastroduodenoscopy with Recinos's esophagus. MEDICATIONS Med list included: 1. Coumadin 5 mg alternating with 2.5 mg. 2. Metoprolol 25 mg a day. FAMILY HISTORY Significant for cancer of the liver in his father, one sister with breast cancer and one sister with lung cancer. HABITS The patient smoked a half to one pack per day for over 20 years and then quit. Alcohol use moderate up until his 50s and then quit. REVIEW OF SYSTEMS The patient is intubated on ventilator support. ALLERGIES None listed. PHYSICAL EXAMINATION GENERAL: This is a moderately obese elderly man who is intubated. He is responsive. He has a large swelling in his left supraclavicular region encroaching on the chest wall as well as his shoulder. VITAL SIGNS: Blood pressure 138/80, pulse 90, respirations 18, temperature 97.5. HEENT: Head is normocephalic. Pupils are reactive. Throat has a few secretions. ET tube in place. NG in place. Nasal mucosa is injected. NECK: Supple with swelling of the left side of the neck. Mild venous distention. No thyromegaly. CHEST: Decreased excursions. Swelling of the left upper chest area and ecchymotic areas of the left chest wall. Decreased breath sounds to the left base and a few basilar crackles. HEART: The heart sounds are irregularly irregular. No murmur. No S3. ABDOMEN: Soft, obese, without masses, organomegaly or tenderness. EXTREMITIES: Edema with mild varicosities. He is moving all of his extremities. NEUROLOGIC: Reflexes are 1+ with negative Babinski. The patient is partially sedated. SKIN: No lesions. IMPRESSION 1. Acute respiratory failure. 2. A large left neck/supraclavicular hematoma with tracheal obstruction and deviation. 3. Upper airway stridor. 4. Atrial fibrillation with rapid ventricular response. 5. Hypertension. 6. Ankylosing spondylitis. 7. History of reactive airways. 8. Obstructive sleep apnea syndrome. 9. Possible aspiration pneumonia. PLAN The patient will be maintained on ventilator support and weaned to CPAP, FIO2 35%. Respiratory parameters will be checked. Continue with Decadron 4 mg IV q.6h. We will also continue with the present antibiotic coverage including Zithromax. Attempts will be made to place him on trach blow by. If the hematoma is reduced and the neck swelling is down we could possibly get him extubated shortly. Further work-up for his mediastinal mass with a PET scan as an outpatient. Closely watch his INR. A follow-up chest x-ray has been ordered for tomorrow. I will follow the case with you Dr. Hammonds. Thank you for this consultation. MD BETY Blank/MILLY /12:39 PM /1:02 PM
[2017-05-23] MEDS: RESP: ALBUTEROL 2.5 MG/IPRATROPIUM 0.5 MG NEB (SCH) NEB ×2 (13:12→20:18)
--- NOTE | 2017-05-23 13:37 | EKG ---
Date Performed: 05/22/2017 Time Performed: 15:37:50 PTAGE: 81 years EKG: ATRIAL FIBRILLATION LOW QRS VOLTAGE IN PRECORDIAL LEADS POSSIBLE RIGHT VENTRICULAR CONDUCTI ON DELAY ABNORMAL RHYTHM ECG Compared to prior tracing no significant change PREVIOUS TRACING : 01/01/2008 10.18 DOCTOR: Stew Nix Interpretating Date/Time 05/23/2017 13:32:47
--- NOTE | 2017-05-23 18:53 | ECHRPT ---
Indication: Shortness of breath CONCLUSIONS Technically difficult study In limited views, the left ventricular systolic function appears to be in the 40-45% range. Althoug h not all wall motion is assessed. There is a small pericardial effusion present, concentric in nature. No hemodynamically significant echocardiographic features were observed (no pre-tamponade physiology). BP: 91 / 59 HR: 109 Rhythm: Sinus MEASUREMENTS (Male / Female) Normal Values Technical Quality:Very technically difficult study 2D ECHO LV Diastolic Diameter PLAX 3.2 cm 4.2 - 5.9 / 3.9 - 5.3 cm LV Systolic Diameter PLAX 2.9 cm IVS Diastolic Thickness 0.9 cm 0.6 - 1.0 / 0.6 - 0.9 cm LVPW Diastolic Thickness 0.9 cm 0.6 - 1.0 / 0.6 - 0.9 cm LV Relative Wall Thickness 0.6 LVOT Diameter 2.3 cm Aortic Root Diameter 3.4 cm LA Systolic Diameter LX 2.9 cm 3.0 - 4.0 / 2.7 - 3.8 cm M-MODE AV Cusp Separation MM 2.1 cm DOPPLER LVOT Peak Velocity 46.6 cm/s LVOT Peak Gradient 0.9 mmHg LVOT Velocity Time Integral 5.9 cm LVOT Cardiac Index 1182.3 cm/minm Mitral E Point Velocity 75.2 cm/s TR Peak Velocity 262.0 cm/s TR Peak Gradient 27.5 mmHg PV Peak Velocity 71.4 cm/s PV Peak Gradient 2.0 mmHg FINDINGS LEFT VENTRICLE Normal left ventricular size. In limited views, the left ventricular systolic function appears to be in the 40-45% range. Althoug h not all wall motion is assessed RIGHT VENTRICLE The right ventricle was not well visualized. LEFT ATRIUM The left atrial size is probably normal. RIGHT ATRIUM The right atrium is not well visualized. ATRIAL SEPTUM The interatrial septum not well visualized. AORTA The aortic root and proximal ascending aorta are not well visualized. MITRAL VALVE Grossly normal. No mitral valve stenosis. Trace mitral valve regurgitation. AORTIC VALVE Grossly normal. No aortic valve stenosis. Trace-mild aortic valve regurgitation. TRICUSPID VALVE Structurally normal tricuspid valve. There is trace tricuspid valve regurgitation. No tricuspid valve stenosis. PERICARDIUM There is a small pericardial effusion present, concentric in nature. No hemodynamically significant echocardiographic features were observed (no pre-tamponade physiology). Armando Mayo DO (Electronically Signed) Final Date:23 May 2017 18:51
[2017-05-23] MEDS ORDERED: AZITHROMYCIN INJ 500 MG in SODIUM CHLOR 0.9% 250 ML INJ 250 ML IV SCH (20:00)
[2017-05-23] MEDS: fentaNYL 2,500 MCG/NS 250 ML IV SCH (20:45)
[2017-05-24] VITALS (18 sets, daily range): BP systolic 101–133; BP diastolic 55–80; PULSE 77–130; RESP 12–16; TEMP 97.8–98.4; O2SAT 96–100
[2017-05-24] MEDS: PROPOFOL 1000 MG/100 ML INJ 100 ML IV SCH ×4 (01:21→20:12)
[2017-05-24] MEDS: PIPERACIL-TAZO 3.375 GM PREMIX 50 ML IV SCH ×4 (02:06→20:13)
[2017-05-24] MEDS: DEXAMETHASONE SOD PHOS 4 MG/ML VIAL IV PUSH SCH (05:10)
[2017-05-24] MEDS: fentaNYL 2,500 MCG/NS 250 ML IV SCH ×2 (06:45→20:13)
[2017-05-24 07:13] LABS: AUTOMATED NEUTROPHIL # 9.4 TH/MM3 (1.8-7.7); BASOPHIL % 0.1 % (0.0-2.0); HEMATOCRIT 32.7 % (39.0-51.0); HEMO FLAGS DIFF FINAL; LYMPHOCYTE # 0.6 TH/MM3 (1.0-4.8); MEAN CELL VOLUME 97.7 FL (80.0-100.0); MEAN CORPUSCULAR HEMOGLOBIN 33.2 PG (27.0-34.0); MONO % 3.9 % (0.0-8.0); PLATELET COUNT 180 TH/MM3 (150-450); RED BLOOD COUNT 3.35 MIL/MM3 (4.50-5.90); RED CELL DISTRIBUTION WIDTH 13.8 % (11.6-17.2); WHITE BLOOD COUNT 10.4 TH/MM3 (4.0-11.0)
[2017-05-24 07:20] LABS: APTT (PATIENT) 31.9 SEC (24.3-30.1); PROTHROMBIN TIME - PATIENT 11.4 SEC (9.8-11.6)
[2017-05-24] MEDS: RESP: ALBUTEROL 2.5 MG/IPRATROPIUM 0.5 MG NEB (SCH) NEB ×3 (07:26→20:00)
[2017-05-24 07:42] LABS: BICARBONATE 26.5 MEQ/L (21.0-32.0); POTASSIUM 4.7 MEQ/L (3.5-5.1)
[2017-05-24] MEDS: PANTOPRAZOLE SODIUM 40 MG VIAL IV SCH (09:09)
[2017-05-24] MEDS: CHLORHEXIDINE 0.12% (ORAL KIT) 15 ML CUP MT SCH ×2 (09:09→20:13)
[2017-05-24] MEDS: DOCUSATE SODIUM 50 MG/SENNA 8.6 MG TAB PO SCH ×2 (09:09→20:13)
[2017-05-24] MEDS: SODIUM CHLORIDE 0.9% FLUSH 10 ML FLUSH IV FLUSH SCH ×2 (09:10→20:13)
[2017-05-24] MEDS ORDERED: LIDOCAINE 1%/EPINEPHrine 1:100,000 SOLN 30 ML VIAL ONE (14:10)
--- NOTE | 2017-05-24 14:16 | HHI.PR ---
Subjective Remarks Sedated and on vent support. Failed weaning trials. Output was good. Objective Vital Signs Date Time Temp Pulse Resp B/P Pulse Ox O2 Delivery O2 Flow Rate FiO2 05/24/17 12:00 84 05/24/17 12:00 98.4 84 16 101/55 97 05/24/17 12:00 40 05/24/17 11:21 96 40 05/24/17 10:00 130 05/24/17 09:59 40 05/24/17 09:26 40 05/24/17 09:26 40 05/24/17 08:00 97.8 81 16 107/58 97 05/24/17 08:00 81 05/24/17 08:00 40 05/24/17 07:26 98 40 05/24/17 06:00 83 05/24/17 04:00 98.4 91 15 110/59 98 05/24/17 04:00 40 05/24/17 04:00 92 05/24/17 02:00 100 05/24/17 01:25 98 40 05/24/17 00:00 40 05/24/17 00:00 112 05/24/17 00:00 98.0 105 16 133/80 96 05/23/17 22:00 108 05/23/17 20:19 100 40 05/23/17 20:00 40 05/23/17 20:00 98.7 112 20 140/86 99 05/23/17 20:00 112 05/23/17 18:00 102 05/23/17 16:57 98 40 05/23/17 16:00 98.7 107 20 126/69 98 05/23/17 16:00 114 05/23/17 16:00 40 05/23/17 15:00 50 I/O 05/23/17 05/23/17 05/23/17 05/24/17 05/24/17 05/24/17 07:00 15:00 23:00 07:00 15:00 23:00 Intake Total 440 ml 274 ml 579 ml 320 ml Output Total 400 ml 1275 ml 800 ml 700 ml Balance 40 ml -1001 ml -221 ml -380 ml Intake IV Total 440 ml 214 ml 579 ml 320 ml Other 60 ml Output Urine Total 400 ml 1250 ml 800 ml 650 ml Gastric Drainage Total 25 ml 50 ml # Bowel Movements 0 Result Diagram: 05/24/17 0635 05/24/17 0635 Objective Remarks GENERAL: This is a moderately obese elderly man who is intubated. He is responsive. He has a large swelling in his left supraclavicular region encroaching on the chest wall as well as his shoulder. HEENT: Head is normocephalic. Pupils are reactive. Throat has a few secretions. ET tube in place. NG in place. Nasal mucosa is injected. NECK: Supple with swelling of the left side of the neck. Mild venous distention. No thyromegaly. CHEST: Decreased excursions. Swelling of the left upper chest area and ecchymotic areas of the left chest wall. Decreased breath sounds to the left base and a few basilar crackles. HEART: The heart sounds are irregularly irregular. No murmur. No S3. ABDOMEN: Soft, obese, without masses, organomegaly or tenderness. EXTREMITIES: Edema with mild varicosities. He is moving all of his extremities. NEUROLOGIC: Reflexes are 1+ with negative Babinski. The patient is partially sedated. SKIN: No lesions. Assessment and Plan Assessment and Plan IMPRESSION 1. Acute respiratory failure. 2. A large left neck/supraclavicular hematoma with tracheal obstruction and deviation. 3. Upper airway stridor. 4. Atrial fibrillation with rapid ventricular response. 5. Hypertension. 6. Ankylosing spondylitis. 7. History of reactive airways. 8. Obstructive sleep apnea syndrome. 9. Possible aspiration pneumonia. Plan : 1. Will ask Surgery to drain Neck hematoma. 2. CPAP trial in am. 3. Wean FIo2 and keep sat >92 4. Cont antibiotics 5. CXR ,CBc ,BMP in am Jaylen Thomas MD May 24, 2017 14:16
--- NOTE | 2017-05-24 17:09 | HHI.CCPN ---
Subjective Remarks/Hospital Course Hospital Course: 81 WM with PMH of HTN, Atrial fibrillation with RVR on chronic anticoagulation with warfarin, CAD with prior stent, anklyosing spondylitis who was visiting his son in [place] when he fell on 05/20/17 at 01:30 in the morning when he got up to go to the bathroom. He developed some bruising of his left shoulder when he reportedly hit it on the doorway. He had no LOC or reported head trauma and his mental status was baseline.. He required assistance from family members to get back up. He was able to move his shoulder well so they did not seek medical attention. His supraclavicular region was very swollen the next day. At around 3 am today he awoke complaining of difficulty breathing and difficulty swallowing. While on an airline flight returning home today, his noted that his voice was changing. He did not eat anything all day because of the difficulty with swallowing. He immediately went to his primary care physician's office, Dr. Yanely Cantu, who immediately requested [facility] for transfer. Upon arrival to the ED he was noted to have stridor with large hematoma L supraclavicular region, swelling of left neck, ecchymosis overlying left chest wall.. He was intubated for maintenance of airway by Dr. Mayo without difficulty. He was also in A fib RVR with rate in 150s, now rate controlled after Cardizem [address] chest demonstrates 11 cm mass left supraclavicular region that per discussion with Dr. Hill is consistent with hematoma from fall. There is a 1.1 cm Right pulmonary nodule, 2.6 cm subcarinal mass and mediastinal lymphadenopathy which he recommends followup with CT chest in about 2 weeks after post traumatic changes resolve and, if persist, followup with PET. His INR is 2.3. His states that yesterday the neck and shoulder was more swollen than today but that the bruising is much worse today. He has recently been followed by Dr. Harry as an outpatient for 18 month history of cough. His states he had CXR but no prior CT chest. He was on 30 day course of predisone for Ankylosing spondylitis, completed 2 weeks ago. Reportedly had a "steroid shot" in Dr. Harry's office 2 weeks ago. Subjective: 05/23: patient is intubated and sedated. laryngeal edema unchanged. per family, left chest/supraclavicular hematoma significantly smaller than yesterday, although still with some apparent mass effect on the anterior neck. awaiting MRI. 05/24: failed CPAP today for tachypnea. hematoma stable, but still with what appears to be slight mass effect. Pulmonary saw patient and consulted general surgery for possible bedside evacuation of hematoma, which I agree with. MRI confirms tiny prior CVA, no new findings. Objective Vital Signs Date Time Temp Pulse Resp B/P Pulse Ox O2 Delivery O2 Flow Rate FiO2 05/24/17 16:27 97 40 05/24/17 16:00 98.4 84 16 105/58 05/22/17 22:11 Ventilator 2 Intake and Output 05/23/17 05/23/17 05/23/17 07:59 15:59 23:59 Intake Total 440 ml 274 ml 579 ml Output Total 400 ml 1275 ml 800 ml Balance 40 ml -1001 ml -221 ml Result Diagram: 05/24/17 0635 05/24/17 0635 Other Results Microbiology Date/Time Procedure Status Source Growth 05/22/17 20:16 Urine Culture - Final Complete Urine Catheterized Urine NO GROWTH IN 48 HOURS. 05/22/17 20:45 Gram Stain - Final Complete Sputum Endotracheal 05/22/17 20:45 Sputum Culture - Final Complete Sputum Endotracheal HEAVY GROWTH NORMAL RESPIRATORY MERLE Objective Remarks GENERAL: Elderly male who is orotracheally intubated, sedated. HEAD: Normocephalic. EYES: Pupils equal and round, 3mm reactive bilaterally. No scleral icterus. No injection or drainage. ENT: Mucous membranes pink and moist. No nasal bleeding. NECK: Swelling over left neck from inferior to left mastoid process and then radiating anteriorly. Trachea appears more midline than previously documented. Ecchymosis and palpable hematoma L supraclavicular space. Ecchymosis extends along left chest wall just superior to the nipple and then radiating to more inferiorly along lateral ribs. CARDIOVASCULAR: irregularly irregular, rate in 80s, A fib on monitor. RESPIRATORY: No accessory muscle use. Clear to auscultation. Breath sounds equal bilaterally. GASTROINTESTINAL: Abdomen soft, non-tender, nondistended. : Harvey in place with yellow urine output. MUSCULOSKELETAL: Extremities without clubbing, cyanosis. There is swelling of left elbow at the olecrenon. Dressing in place. NEUROLOGICAL: RASS -3. does not follow commands for me this morning, sedated. w/ d x 4. A/P Problem List: (1) Atrial fibrillation ICD Code: I48.91 Status: Acute (2) Stridor ICD Code: R06.1 Status: Acute (3) Hematoma of neck ICD Code: S10.93XA Status: Acute (4) Mild dementia ICD Code: F03.90 Status: Acute (5) HLD (hyperlipidemia) ICD Code: E78.5 Status: Acute (6) Fall ICD Code: W19.XXXA Status: Acute (7) Leukocytosis ICD Code: D72.829 Status: Acute (8) Hyponatremia ICD Code: E87.1 Status: Acute (9) CAD (coronary artery disease) ICD Code: I25.10 Status: Chronic (10) Coagulopathy ICD Code: D68.9 Status: Chronic (11) Essential hypertension ICD Code: I10 Status: Chronic (12) Acute respiratory failure ICD Code: J96.00 Status: Acute (13) Ankylosing spondylitis ICD Code: M45.9 Status: Chronic (14) Anemia associated with acute blood loss ICD Code: D62 Status: Acute (15) H/O tobacco use, presenting hazards to health ICD Code: Z87.891 Status: Chronic (16) Contusion of elbow, left ICD Code: S50.02XA Status: Acute Assessment and Plan Assessment: 81yM on chronic anticoagulation s/p mechanical fall with left neck/ chest wall hematoma and airway compromise. failed SBT, unclear if due to residual mass effect increasing work of breathing or age and frailty combined with critical illness and deconditioning. continue HOB at 60-90 degrees to allow for improved venous congestion drainage. steroids and small lasix challenge to minimize ongoing edema. keep sedated and intubated again today. agree with bedside evacuation of hematoma. NEURO: Fall History of mild dementia Propofol for sedation Target RASS -2 CT brain - 1 cm hypodensity and right caudate and internal capsule which may represent an old infarction. MRI confirms old infarct. 05/23 RESP: Acute respiratory failure secondary to Large L supraclavicular hematoma (11 cm) , swelling Left posterior neck causing trachea shift and airway compromise History of tobacco abuse Ankylosing spondylitis 1.17 cm right pulmonary nodule Intubated by ED physician for airway maintenance 05/22. Suspect he will require intubation for few days while hematoma and edema resolve. Ventilator Bundle. Albuterol every [address] chest/neck 1.1 cm R pulmonary nodule, peripherally located adjacent to pleura. 2.6 cm mass in right paraspinous region, extending from subcarinal level. 11.3 cm x 7.3 cm L supraclavicular hematoma. Extends posterior to clavicle. No active extravasation. Discussed with Dr. Hill. Recommends repeat CT in 2-4 weeks and if these findings persist, obtain outpatient PET scan. Patient is known to Dr. Harry, following. -- decadron 4mg iv q6h x 24h -- continue net negative fluid balance. -- agree with gen surg consult for evacuation of hematoma. CV: Atrial fibrillation with RVR on chronic anticoagulation with warfarin. Hypertension History of hyperlipidemia Coronary artery disease with prior stents about 12 years ago Atrial fibrillation is currently rate controlled in the 80s, will monitor. Home dose of metoprolol succinate is 25 mg daily, on hold currently as SBP is in 100s on propofol for sedation. Patient was no longer on statin per so removed from med rec. Hold warfarin as per below. 2d echo 05/23: EF 40 - 45%, small pericardial effusion without tamponade GI: GERD Recinos's esophagus start tube feeds. FEN/RENAL: Mild hyponatremia Harvey in place. Monitor intake and output. Monitor electrolytes. Replace electrolytes as indicated per ICU electrolyte replacement protocol. saline lock iv lasix 20mg iv x 1. goal slightly negative to improve edema. ID: Aspiration Blood cultures have been sent in ED. Obtain sputum culture. He seems azithromycin and Rocephin in the ED. We'll cover with Zosyn 3.375 IV every 6 hours to cover for aspiration pneumonia. If cultures negative x 48h, will de- escalate therapy. CT chest - bilateral infiltrates posterior lower lung mcbride.(in addition to above discussed finding) HEME: Anemia Coagulopathy secondary to chronic warfarin Hemoglobin is 12.5 with no recent priors for comparison (hemoglobin 14.5 12/2007) . -- INR 1.0 this AM. will not anticoagulate at this point given risk of further airway compromise. ENDO: Euglycemic.The patient was previously on 30 day course of prednisone; off prednisone x 2weeks. Monitor for evidence of relative adrenal insufficiency. MSK: Acute left elbow contusion F/u xray left elbow. PROPH: Hold pharmacologic DVT prophylaxis due to hematoma. SCDs for DVT prophylaxis. Protonix 40 mg IV daily for stress ulcer prophylaxis and history of GERD ACCESS: Peripheral IV providing adequate access at this time. Problem Qualifiers (1) Atrial fibrillation: Qualified Code: I48.91 - Atrial fibrillation, unspecified type (2) Hematoma of neck: Qualified Code: S10.93XA - Hematoma of neck, initial encounter Lan Hammonds MD May 24, 2017 17:09
[2017-05-24] MEDS ORDERED: FUROSEMIDE 20 MG/2 ML VIAL IV PUSH ONE (17:15)
[2017-05-24] MEDS: CHLORHEXIDINE GLUCONATE 2 % 1 PACK (2 CLOTHS) TOP SCH (20:13)
[2017-05-25] VITALS (17 sets, daily range): BP systolic 100–164; BP diastolic 56–77; PULSE 69–135; RESP 12–20; TEMP 97.6–98.6; O2SAT 95–100
[2017-05-25] MEDS: PIPERACIL-TAZO 3.375 GM PREMIX 50 ML IV SCH ×2 (03:00→09:25)
[2017-05-25] MEDS: PROPOFOL 1000 MG/100 ML INJ 100 ML IV SCH (05:42)
[2017-05-25] MEDS: RESP: ALBUTEROL 2.5 MG/IPRATROPIUM 0.5 MG NEB (SCH) NEB ×3 (07:34→19:49)
[2017-05-25] MEDS ORDERED: DILTIAZEM HCL 25 MG/5 ML VIAL ONE (08:09)
[2017-05-25] MEDS ORDERED: DILTIAZEM HCL 25 MG/5 ML VIAL IV ONE (08:15)
[2017-05-25] MEDS: DOCUSATE SODIUM 50 MG/SENNA 8.6 MG TAB PO SCH ×2 (09:00→19:26)
[2017-05-25] MEDS: PANTOPRAZOLE SODIUM 40 MG VIAL IV SCH (09:24)
[2017-05-25] MEDS: SODIUM CHLORIDE 0.9% FLUSH 10 ML FLUSH IV FLUSH SCH ×2 (09:25→19:03)
[2017-05-25] MEDS: CHLORHEXIDINE 0.12% (ORAL KIT) 15 ML CUP MT SCH ×2 (09:27→19:02)
[2017-05-25 09:38] LABS: AUTOMATED NEUTROPHIL # 16.5 TH/MM3 (1.8-7.7); BASOPHIL # 0.1 TH/MM3 (0-0.2); BASOPHIL % 0.4 % (0.0-2.0); EOSINOPHIL % 0.1 % (0.0-4.0); HEMATOCRIT 33.6 % (39.0-51.0); HEMO FLAGS DIFF FINAL; LYMPH % 10.3 % (9.0-44.0); LYMPHOCYTE # 2.1 TH/MM3 (1.0-4.8); MEAN CELL VOLUME 97.9 FL (80.0-100.0); MEAN CORPUSCULAR HEMOGLOBIN 32.4 PG (27.0-34.0); MEAN CORPUSCULAR HGB CONC 33.1 % (32.0-36.0); MONO % 8.5 % (0.0-8.0); NEUT % 80.7 % (16.0-70.0); PLATELET COUNT 228 TH/MM3 (150-450); RED BLOOD COUNT 3.43 MIL/MM3 (4.50-5.90); RED CELL DISTRIBUTION WIDTH 13.4 % (11.6-17.2); WHITE BLOOD COUNT 20.4 TH/MM3 (4.0-11.0)
[2017-05-25 10:14] LABS: BICARBONATE 26.5 MEQ/L (21.0-32.0); POTASSIUM 3.9 MEQ/L (3.5-5.1)
--- NOTE | 2017-05-25 10:52 | HHI.CCPN ---
Subjective Remarks/Hospital Course Hospital Course: 81 WM with PMH of HTN, Atrial fibrillation with RVR on chronic anticoagulation with warfarin, CAD with prior stent, anklyosing spondylitis who was visiting his son in [place] when he fell on 05/20/17 at 01:30 in the morning when he got up to go to the bathroom. He developed some bruising of his left shoulder when he reportedly hit it on the doorway. He had no LOC or reported head trauma and his mental status was baseline.. He required assistance from family members to get back up. He was able to move his shoulder well so they did not seek medical attention. His supraclavicular region was very swollen the next day. At around 3 am today he awoke complaining of difficulty breathing and difficulty swallowing. While on an airline flight returning home today, his noted that his voice was changing. He did not eat anything all day because of the difficulty with swallowing. He immediately went to his primary care physician's office, Dr. Yanely Cantu, who immediately requested [facility] for transfer. Upon arrival to the ED he was noted to have stridor with large hematoma L supraclavicular region, swelling of left neck, ecchymosis overlying left chest wall.. He was intubated for maintenance of airway by Dr. Mayo without difficulty. He was also in A fib RVR with rate in 150s, now rate controlled after Cardizem [address] chest demonstrates 11 cm mass left supraclavicular region that per discussion with Dr. Hill is consistent with hematoma from fall. There is a 1.1 cm Right pulmonary nodule, 2.6 cm subcarinal mass and mediastinal lymphadenopathy which he recommends followup with CT chest in about 2 weeks after post traumatic changes resolve and, if persist, followup with PET. His INR is 2.3. His states that yesterday the neck and shoulder was more swollen than today but that the bruising is much worse today. He has recently been followed by Dr. Harry as an outpatient for 18 month history of cough. His states he had CXR but no prior CT chest. He was on 30 day course of predisone for Ankylosing spondylitis, completed 2 weeks ago. Reportedly had a "steroid shot" in Dr. Harry's office 2 weeks ago. Subjective: 05/23: patient is intubated and sedated. laryngeal edema unchanged. per family, left chest/supraclavicular hematoma significantly smaller than yesterday, although still with some apparent mass effect on the anterior neck. awaiting MRI. 05/24: failed CPAP today for tachypnea. hematoma stable, but still with what appears to be slight mass effect. Pulmonary saw patient and consulted general surgery for possible bedside evacuation of hematoma, which I agree with. MRI confirms tiny prior CVA, no new findings. 05/25: 8.0 ett with cuff leak today. hematoma evacuated yesterday. patient still very somnolent. high risk airway. will need to be more awake before extubating. Cr rising and renal function worse, likely secondary to volume restrictive strategy for decreasing laryngeal edema. will be forced to add back gentle fluid hydration to improve renal perfusion. Objective Vital Signs Date Time Temp Pulse Resp B/P Pulse Ox O2 Delivery O2 Flow Rate FiO2 05/25/17 07:34 40 05/25/17 07:34 99 05/25/17 06:00 75 05/25/17 04:00 98.6 16 100/56 05/22/17 22:11 Ventilator 2 Intake and Output 05/24/17 05/24/17 05/25/17 08:00 16:00 00:00 Intake Total 320 ml 417 ml 399 ml Output Total 700 ml 265 ml 500 ml Balance -380 ml 152 ml -101 ml Result Diagram: 05/25/1792405/25/17924 Other Results Microbiology Date/Time Procedure Status Source Growth 05/22/17 20:16 Urine Culture - Final Complete Urine Catheterized Urine NO GROWTH IN 48 HOURS. 05/22/17 20:45 Gram Stain - Final Complete Sputum Endotracheal 05/22/17 20:45 Sputum Culture - Final Complete Sputum Endotracheal HEAVY GROWTH NORMAL RESPIRATORY MERLE Objective Remarks GENERAL: Elderly male who is orotracheally intubated, sedated. HEAD: Normocephalic. EYES: Pupils equal and round, 3mm reactive bilaterally. No scleral icterus. No injection or drainage. ENT: Mucous membranes pink and moist. No nasal bleeding. NECK: incision and dressing over left supraclavicular area. swelling much improved. no evidence of tracheal deviation today. CARDIOVASCULAR: irregularly irregular, rate in 130s, A fib on monitor. RESPIRATORY: No accessory muscle use. Clear to auscultation. Breath sounds equal bilaterally. + cuff leak. GASTROINTESTINAL: Abdomen soft, non-tender, nondistended. : Harvey in place with yellow urine output. MUSCULOSKELETAL: Extremities without clubbing, cyanosis. There is swelling of left elbow at the olecrenon. Dressing in place. NEUROLOGICAL: RASS -2. follows commands, very somnolent. A/P Problem List: (1) Atrial fibrillation ICD Code: I48.91 Status: Acute (2) Stridor ICD Code: R06.1 Status: Acute (3) Hematoma of neck ICD Code: S10.93XA Status: Acute (4) Mild dementia ICD Code: F03.90 Status: Acute (5) HLD (hyperlipidemia) ICD Code: E78.5 Status: Acute (6) Fall ICD Code: W19.XXXA Status: Acute (7) Leukocytosis ICD Code: D72.829 Status: Acute (8) Hyponatremia ICD Code: E87.1 Status: Acute (9) CAD (coronary artery disease) ICD Code: I25.10 Status: Chronic (10) Coagulopathy ICD Code: D68.9 Status: Chronic (11) Essential hypertension ICD Code: I10 Status: Chronic (12) Acute respiratory failure ICD Code: J96.00 Status: Acute (13) Ankylosing spondylitis ICD Code: M45.9 Status: Chronic (14) Anemia associated with acute blood loss ICD Code: D62 Status: Acute (15) H/O tobacco use, presenting hazards to health ICD Code: Z87.891 Status: Chronic (16) Contusion of elbow, left ICD Code: S50.02XA Status: Acute Assessment and Plan Assessment: 81yM on chronic anticoagulation s/p mechanical fall with left neck/ chest wall hematoma and airway compromise. passing SBT and with good cuff leak. however, still very somnolent, and with high risk airway, needs to be more awake. anticipated difficult airway due to edema and hematoma as well as restricted neck mobility secondary to ankylosing spondylitis. Cr rising- we are forced to add gentle fluid back. also afib not rate controlled. add additional diltiazem today. NEURO: Fall History of mild dementia Propofol for sedation Target RASS -2 CT brain - 1 cm hypodensity and right caudate and internal capsule which may represent an old infarction. MRI confirms old infarct. 05/23 RESP: Acute respiratory failure secondary to Large L supraclavicular hematoma (11 cm) , swelling Left posterior neck causing trachea shift and airway compromise History of tobacco abuse Ankylosing spondylitis 1.17 cm right pulmonary nodule Intubated by ED physician for airway maintenance 05/22. Suspect he will require intubation for few days while hematoma and edema resolve. Ventilator Bundle. Albuterol every [address] chest/neck 1.1 cm R pulmonary nodule, peripherally located adjacent to pleura. 2.6 cm mass in right paraspinous region, extending from subcarinal level. 11.3 cm x 7.3 cm L supraclavicular hematoma. Extends posterior to clavicle. No active extravasation. Discussed with Dr. Hill. Recommends repeat CT in 2-4 weeks and if these findings persist, obtain outpatient PET scan. Patient is known to Dr. Harry, following. -- s/p 24h decadron. -- will be forced to add gentle hydration. -- s/p evacuation of hematoma 05/24 at bedside. -- when more awake, will trial extubation over cook catheter. CV: Atrial fibrillation with RVR on chronic anticoagulation with warfarin. Hypertension History of hyperlipidemia Coronary artery disease with prior stents about 12 years ago Atrial fibrillation is currently rate controlled in the 80s, will monitor. Home dose of metoprolol succinate is 25 mg daily, on hold currently as SBP is in 100s on propofol for sedation. Patient was no longer on statin per so removed from med rec. Hold warfarin as per below. 2d echo 05/23: EF 40 - 45%, small pericardial effusion without tamponade GI: GERD Recinos's esophagus start tube feeds. FEN/RENAL: Acute kidney injury- secondary to volume restrictive strategy to minimize laryngeal edema Harvey in place. Monitor intake and output. Monitor electrolytes. Replace electrolytes as indicated per ICU electrolyte replacement protocol. will add gentle hydration back. ID: Aspiration Blood cultures have been sent in ED. Obtain sputum culture. He seems azithromycin and Rocephin in the ED. We'll cover with Zosyn 3.375 IV every 6 hours to cover for aspiration pneumonia. cultures are negative x 48h, but elevated wbc. will de-escalate to po augmentin and continue x [address] chest - bilateral infiltrates posterior lower lung mcbride.(in addition to above discussed finding) HEME: Anemia Coagulopathy secondary to chronic warfarin Hemoglobin is 12.5 with no recent priors for comparison (hemoglobin 14.5 12/2007) . -- INR 1.0 this AM. will not anticoagulate at this point given risk of further airway compromise. ENDO: Euglycemic.The patient was previously on 30 day course of prednisone; off prednisone x 2weeks. Monitor for evidence of relative adrenal insufficiency. MSK: Acute left elbow contusion F/u xray left elbow. PROPH: Hold pharmacologic DVT prophylaxis due to hematoma. SCDs for DVT prophylaxis. Protonix 40 mg IV daily for stress ulcer prophylaxis and history of GERD ACCESS: Peripheral IV providing adequate access at this time. Problem Qualifiers (1) Atrial fibrillation: Qualified Code: I48.91 - Atrial fibrillation, unspecified type (2) Hematoma of neck: Qualified Code: S10.93XA - Hematoma of neck, initial encounter Lan Hammonds MD May 25, 2017 10:52
[2017-05-25] MEDS ORDERED: SODIUM CHLORID 0.9% 500 ML INJ 500 ML IV SCH (12:00)
--- NOTE | 2017-05-25 15:47 | HHI.PR ---
Subjective Remarks Extubated today. Had left Supraclavicular hematoma drained..Now awake and breathing better.On 4 L o2. Output was good. Objective Vital Signs Date Time Temp Pulse Resp B/P Pulse Ox O2 Delivery O2 Flow Rate FiO2 05/25/17 14:00 135 05/25/17 12:00 125 05/25/17 12:00 98.4 125 20 117/60 95 05/25/17 11:35 95 Nasal Cannula 4 05/25/17 11:35 95 Nasal Cannula 4.00 05/25/17 10:00 116 05/25/17 08:00 40 05/25/17 08:00 98.6 126 16 164/77 100 05/25/17 08:00 126 05/25/17 07:34 40 05/25/17 07:34 99 40 05/25/17 06:00 75 05/25/17 04:00 69 05/25/17 04:00 98.6 69 16 100/56 98 05/25/17 04:00 40 05/25/17 03:40 100 40 05/25/17 02:00 75 05/25/17 00:35 100 40 05/25/17 00:00 98.6 80 16 105/59 97 05/25/17 00:00 80 05/25/17 00:00 40 05/24/17 22:23 99 40 05/24/17 22:00 83 05/24/17 20:01 100 40 05/24/17 20:00 40 05/24/17 20:00 98.2 82 12 125/66 99 05/24/17 20:00 82 05/24/17 18:00 77 05/24/17 16:27 97 40 05/24/17 16:00 40 05/24/17 16:00 98.4 84 16 105/58 98 05/24/17 16:00 84 I/O 05/24/17 05/24/17 05/24/17 05/25/17 05/25/17 05/25/17 07:00 15:00 23:00 07:00 15:00 23:00 Intake Total 320 ml 417 ml 399 ml 671 ml 371 ml Output Total 700 ml 265 ml 500 ml 500 ml 320 ml Balance -380 ml 152 ml -101 ml 171 ml 51 ml Intake Oral 60 ml IV Total 320 ml 417 ml 366 ml 351 ml 221 ml Tube Feeding 33 ml 320 ml 90 ml Output Urine Total 650 ml 265 ml 500 ml 450 ml 320 ml Gastric Drainage Total 50 ml 50 ml Result Diagram: 05/25/1792405/25/17924 Objective Remarks GENERAL: This is a moderately obese elderly man who is alert . HEENT: Head is normocephalic. Pupils are reactive. Throat has a few secretions. Nasal mucosa is injected. NECK: Supple with swelling of the left side of the neck. + Dressing. Mild venous distention. No thyromegaly. CHEST: Decreased excursions. Swelling of the left upper chest area and ecchymotic areas of the left chest wall. Decreased breath sounds to the left base and a few basilar crackles. HEART: The heart sounds are irregularly irregular. No murmur. No S3. ABDOMEN: Soft, obese, without masses, organomegaly or tenderness. EXTREMITIES: Edema with mild varicosities. He is moving all of his extremities well. NEUROLOGIC: Reflexes are 1+ with negative Babinski. The patient is partially sedated. SKIN: No lesions. Assessment and Plan Assessment and Plan IMPRESSION 1. Acute respiratory failure. 2. A large left neck/supraclavicular hematoma with tracheal obstruction and deviation. 3. Upper airway stridor. 4. Atrial fibrillation with rapid ventricular response. 5. Hypertension. 6. Ankylosing spondylitis. 7. History of reactive airways. 8. Obstructive sleep apnea syndrome. 9. Possible aspiration pneumonia. Plan : 1. Wean O2 to 3 L 2. Chest Xray in am 3. Dressing change left neck 4. Cont antibiotics 5. Up with help. 6. Nebs tenisha larry V. John MD May 25, 2017 15:47
[2017-05-25] MEDS: CHLORHEXIDINE GLUCONATE 2 % 1 PACK (2 CLOTHS) TOP SCH (19:03)
[2017-05-25] MEDS: AMOXICILLIN/CLAVULANATE K 875 MG TAB PO SCH (19:26)
[2017-05-25] MEDS: HYDROmorphone HCL PF 1 MG/ML VIAL IV PUSH PRN (22:06)
[2017-05-26] VITALS (13 sets, daily range): BP systolic 116–194; BP diastolic 58–83; PULSE 97–125; RESP 14–20; TEMP 97.5–98.3; O2SAT 94–97
--- NOTE | 2017-05-26 06:43 | RADRPT ---
EXAM DATE/TIME: 05/26/2017 04:14 [facility] COMPARISON: CHEST SINGLE AP, May 22, 2017, 16:05. INDICATIONS : Shortness of breath, possible pulmonary disease. MEDICAL HISTORY : CAD A-Fib Dementia SURGICAL HISTORY : Coronary artery stent. ENCOUNTER: Subsequent ACUITY: 3 days PAIN SCORE: Non-responsive. LOCATION: Bilateral chest FINDINGS: A single view of the chest demonstrates stable biapical pleural-parenchymal thickening. The ET tube h as been removed. There is a small infiltrate in the left lung base. Right lung is relatively clear. H eart remains slightly enlarged.. Osseous structures are intact. CONCLUSION: Minimal infiltrate left lung base. Most of the lungs are clear. Ubaldo Ritchie MD on May 26, 2017 at 6:41 Board Certified Radiologist. This report was verified electronically.
[2017-05-26] MEDS: RESP: ALBUTEROL 2.5 MG/IPRATROPIUM 0.5 MG NEB (SCH) NEB ×3 (07:40→20:26)
[2017-05-26] MEDS: CHLORHEXIDINE 0.12% (ORAL KIT) 15 ML CUP MT SCH ×2 (08:00→19:53)
--- NOTE | 2017-05-26 08:38 | MB ---
cc: MENDELLEWIS DATE OF CONSULTATION 05/24/[address] Thomas REASON FOR CONSULTATION Left supraclavicular hematoma after fall. HISTORY OF PRESENT ILLNESS The patient is an 81-year-old male who was admitted to [facility] for fall and on anticoagulation. The patient had developed respiratory failure requiring intubation. The patient since has been on sedation and CT scan of the chest does show possible airway compression with tracheal deviation due to a large hematoma in the supraclavicular area. The patient underwent correction of his INR and seems medically stable with no evidence of recurrent bleeding. General Surgery was asked to drain the hematoma for assistance and extubation and with decompressing airway compression. REVIEW OF SYSTEMS Unable to obtain due to the patient being and intubated. Further history obtained from the chart with this patient being intubated and in the Intensive Care Unit. PAST MEDICAL HISTORY 1. Coronary artery disease. 2. Atrial fibrillation. 3. Ankylosing spondylitis. 4. Sleep apnea. 5. Hypertension. 6. Hyperlipidemia. 7. Peripheral vascular disease. 8. Mild dementia. PAST SURGICAL HISTORY 1. Cholecystectomy. 2. Laminectomy. 3. TURP. 4. Skin carcinoma resections. MEDICATIONS 1. Coumadin. 2. Metoprolol. ALLERGIES No known drug allergies. FAMILY HISTORY Noncontributory to process. SOCIAL HISTORY Patient has history of tobacco. Currently no alcohol, tobacco or illicit drug use. Lives independently at home. PHYSICAL EXAMINATION VITAL SIGNS: Temperature 98.4 degrees, pulse 74, respirations 16, , blood pressure 101/55, O2 saturation 97%. GENERAL: The patient is an acutely ill male in the Intensive Care Unit, intubated and sedated. HEENT: The head is normocephalic, atraumatic. Pupils are round, reactive, to accommodation and to light. Sclerae anicteric. Oral cavity is orally intubated. NECK: Supple. No JVD. Left-sided neck has significant swelling. CHEST WALL EXAM: A large hematoma in the supraclavicular area, non-pulsatile with no overlying skin necrosis. Breath sounds present bilaterally. HEART: Irregular. ABDOMEN: Soft, nontender, nondistended. No organomegaly. No ascites. Normal bowel sounds. EXTREMITIES: Positive for trace edema. NEUROLOGIC EXAM: The patient has a GCS of 3, sedated in the Intensive Care Unit. LABORATORY FINDINGS Hemoglobin 11.1. IMAGING STUDIES CT scan of the chest shows left supraclavicular hematoma with tracheal deviation to the right. ASSESSMENT AND PLAN The patient is an 81-year-old male with supraclavicular hematoma and airway compression. Dr. Thomas requests drainage to assist in decompressing the airway. I feel that this would be safe. It could be done at the bedside as this hematoma is very superficial and the patient is under sedation. Evacuation of the hematoma would help with some compressive symptoms; however, there is a lot of secondary swelling that may still require significant time for resolution prior to extubation. We will obtain consent from the family as the patient is intubated and proceed once we have obtained consent. Thank you very much for this consultation. MD IZABELA Whitmore/LEO /8:12 AM /8:25 AM
--- NOTE | 2017-05-26 09:19 | HHI.PR ---
Subjective Remarks f/u; hematoma in no acute distress but mildly lethargic. denies pain. afebrile. d/w the RN and no acute issues over night. Objective Vitals Vital Signs Date Time Temp Pulse Resp B/P Pulse Ox O2 Delivery O2 Flow Rate FiO2 05/26/17 06:00 106 05/26/17 04:00 98.0 110 16 116/59 97 05/26/17 04:00 110 05/26/17 02:00 108 05/26/17 00:00 98.0 110 14 137/69 95 05/26/17 00:00 110 05/25/17 22:00 115 05/25/17 20:00 97.8 110 12 103/59 97 05/25/17 20:00 110 05/25/17 19:50 96 Nasal Cannula 3.00 05/25/17 18:00 111 05/25/17 16:00 97.6 123 17 110/66 95 05/25/17 16:00 123 05/25/17 14:00 135 05/25/17 12:00 125 05/25/17 12:00 98.4 125 20 117/60 95 05/25/17 11:35 95 Nasal Cannula 4 05/25/17 11:35 95 Nasal Cannula 4.00 05/25/17 10:00 116 I/O 05/25/17 05/25/17 05/25/17 05/26/17 05/26/17 05/26/17 07:00 15:00 23:00 07:00 15:00 23:00 Intake Total 671 ml 371 ml 388 ml 335 ml Output Total 500 ml 320 ml 500 ml Balance 171 ml 51 ml 388 ml -165 ml Intake Oral 60 ml 100 ml 240 ml IV Total 351 ml 221 ml 288 ml 95 ml Tube Feeding 320 ml 90 ml Output Urine Total 450 ml 320 ml 450 ml Gastric Drainage Total 50 ml 50 ml # Voids 0 Result Diagram: 05/25/1792405/25/17924 Imaging Last Impressions Chest X-Ray 05/26/17599 Signed Impressions: Service Date/Time: Friday, May 26, 2017 04:14 - CONCLUSION: Minimal infiltrate left lung base. Most of the lungs are clear. Ubaldo Ritchie MD Elbow X-Ray 05/23/17 0129 Signed Impressions: Service Date/Time: Tuesday, May 23, 2017 04:04 - CONCLUSION: No acute fracture/effusion. Lopez Carrillo MD Brain MRI 05/23/17 0000 Signed Impressions: Service Date/Time: Tuesday, May 23, 2017 11:46 - CONCLUSION: 1. 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 2. Bilateral cortical atrophy and chronic white matter changes. Jair Brantley MD Head CT 05/22/17 1739 Signed Impressions: Service Date/Time: May 18:00 - CONCLUSION: 1 cm hypodensity in the right caudate and internal capsule may represent an old infarction. However, in the absence of prior films and with the history of recent trauma, recommend further characterization of this finding with MRI of brain with and without contrast. Matthew Hill MD Neck CT 05/22/17 0000 Signed Impressions: Service Date/Time: May 18:00 - CONCLUSION: Abnormal appearance the left supraclavicular region with greater the 11 cm mass which probably represents 3 adjacent components in contact with each other. One of the components has cystic or necrotic area. There is also a 4th opacity in the posterior lower left neck which surrounds the scapular spine and is more infiltrative in appearance. The findings are highly suspicious for malignancy. Matthew Hill MD Chest CT 05/22/17 0000 Signed Impressions: Service Date/Time: May 18:15 - CONCLUSION: Greater than 11 cm left supraclavicular mass is suspicious for malignancy. There is also a midthoracic right paraspinal mass measuring 4 cm in superior-inferior extent and an 11 mm right pulmonary nodule. Recommend PET/CT scan to evaluate metabolic behavior and to help in decision making regarding biopsy planning. Matthew Hill MD ADDENDUM: Additional history is now available; recent fall and the patient is on anticoagulation. The large mass in the left supraclavicular region has an appearance which is entirely consisted with a hematoma. The mediastinal adenopathy in the 1 cm nodule, however, are not characteristic of trauma. Recommend performing followup CT in one month specifically does the if the lung and mediastinal findings persist and if so, then consideration of PET/CT scan. Matthew Hill MD Objective Remarks GENERAL: This is a well-nourished, well-developed patient, in no apparent distress. CARDIOVASCULAR: Regular rate and regular rhythm without murmurs, gallops, or rubs. RESPIRATORY: Clear to auscultation. Breath sounds equal bilaterally. No wheezes , rales, or rhonchi. GASTROINTESTINAL: Abdomen soft, non-tender, nondistended. Normal, active bowel sounds MUSCULOSKELETAL: Extremities without clubbing, cyanosis, or edema. NEURO: mildly lethargic but easily arousable Medications and IVs Current Medications Sodium Chloride (NS Flush) 2 ml UNSCH PRN IVF FLUSH AFTER USING IV ACCESS; Start 05/22/17 at 15:30; Stop 05/22/17 at 21:19; Status DC Etomidate 40 mg 40 mg STK-MED ONCE .ROUTE ; Start 05/22/17 at 15:36; Stop at 15:37; Status DC Propofol (Diprivan 1000 Mg/100ml Inj) 100 ml @ As Directed STK-MED ONCE .ROUTE ; Start 05/22/17 at 15:45; Stop 05/22/17 at 15:46; Status DC Etomidate (Amidate Inj) 20 mg ONCE ONCE IV PUSH Last administered on 05/22/17 16:17; Start 05/22/17 at 16:00; Stop 05/22/17 at 16:01; Status DC Rocuronium [place] 50 mg 50 mg BOLUS ONCE IV Last administered on 05/22/17 16: 17; Start 05/22/17 at 16:00; Stop 05/22/17 at 16:01; Status DC Propofol (Diprivan 1000 Mg/100ml Inj) 100 ml @ 0 mls/hr TITRATE IV Last administered on 05/22/17 19:41; Start 05/22/17 at 16:00; Stop 05/22/17 at 21:19; Status DC Diltiazem HCl 20 mg 20 mg ONCE ONCE IV Last administered on 05/22/17 18:43; Start 05/22/17 at 17:30; Stop 05/22/17 at 17:31; Status DC Ceftriaxone Sodium 1000 mg/ Sodium Chloride 100 ml @ 200 mls/hr ONCE ONCE IV Last administered on 05/22/17 18:50; Start 05/22/17 at 18:00; Stop 05/22/17 at 18: 29; Status DC Azithromycin/ Sodium Chloride (Zithromax Inj/ NS 250 ml Inj) 250 ml @ 250 mls/ hr ONCE ONCE IV Last administered on 05/22/17 19:47; Start 05/22/17 at 18:00; Stop 05/22/17 at 18:59; Status DC Iohexol 60 ml 60 ml STK-MED ONCE IV Last administered on 05/22/17 18:23; Start 05/22/17 at 18:23; Stop 05/22/17 at 18:24; Status DC Phytonadione 10 mg/Sodium Chloride 51 ml @ 102 mls/hr ONCE ONCE IV ; Start 05/22/17 at 20:15; Stop 05/22/17 at 20:15; Status Cancel Azithromycin 500 mg/Sodium Chloride 250 ml @ 250 mls/hr Q24H IV Last administered on 05/23/17 20:46; Start 05/23/17 at 20:00; Stop 05/23/17 at 20:30; Status DC Ceftriaxone Sodium 1000 mg/ Sodium Chloride 100 ml @ 200 mls/hr Q12H IV ; Start 05/23/17 at 06:00; Stop 05/23/17 at 06:00; Status DC Piperacillin Sod/ Tazobactam Sod 50 ml @ 100 mls/hr Q6H IV Last administered on 05/25/17 09:25; Start 05/22/17 at 21:00; Stop 05/25/17 at 11:49; Status DC Phytonadione 10 mg/Dextrose 51 ml @ 102 mls/hr ONCE ONCE IV ; Start 05/22/17 at 20:45; Stop 05/22/17 at 21:15; Status DC Phytonadione/ Sodium Chloride (Vitamin K Inj/ NS Inj) 50.5 ml @ 102 mls/hr ONCE ONCE IV Last administered on 05/22/17 21:41; Start 05/22/17 at 21:00; Stop 05/22/17 at 21:29; Status DC Sodium Chloride (NS Flush) 2 ml UNSCH PRN IV FLUSH FLUSH AFTER USING IV ACCESS ; Start 05/22/17 at 21:15 Sodium Chloride (NS Flush) 2 ml BID IV FLUSH Last administered on 05/25/17 19: 03; Start 05/23/17 at 09:00 Acetaminophen (Tylenol) 650 mg Q6H PRN PO PAIN 1-2 AND/OR FEVER >101F; Start at 21:15 Fentanyl Citrate (fentaNYL INJ) 50 mcg Q1H PRN IV PUSH Pain scale 6-10 &/or sedation; Start 05/22/17 at 21:15; Stop 05/25/17 at 11:49; Status DC Pantoprazole Sodium (Protonix Inj) 40 mg DAILY IV Last administered on 09:24; Start 05/23/17 at 09:00 Ondansetron HCl (Zofran Inj) 4 mg Q6H PRN IV NAUSEA OR VOMITING; Start 05/22/17 at 21:15 Albuterol Sulfate (Albuterol Neb) 2.5 mg Q2HR NEB PRN INH SOB/WHEEZING; Start 05/22/17 at 21:15 Miscellaneous Information 1 [id number] XX ; Start 05/22/17 at 21:15 Chlorhexidine Gluconate (Chlorhexidine 2% Cloth) 3 pack Taper DAILY@04 TOP Last administered on 05/25/17 19:03; Start 05/23/17 at 04:00; Stop 05/19/18 at 03: 59 Chlorhexidine Gluconate (Chlorhexidine 2% Cloth) 3 pack UNSCH PRN TOP HYGIENIC CARE; Start 05/22/17 at 21:15 Senna/Docusate Sodium (Kiah-Colace) 1 tab BID PO Last administered on 05/25/17 19:26; Start 05/23/17 at 09:00 Magnesium Hydroxide (Milk Of Magnesia Liq) 30 ml Q12H PRN PO MILD - MODERATE CONSTIPATION; Start 05/22/17 at 21:15 Sennosides (Senokot) 17.2 mg Q12H PRN PO MODERATE - SEVERE CONSTIPATION; Start 05/22/17 at 21:15 Bisacodyl (Dulcolax Supp) 10 mg DAILY PRN RECTAL SEVERE CONSITIPATION; Start at 21:15 Lactulose 30 ml 30 ml DAILY PRN PO SEVERE CONSITIPATION; Start 05/22/17 at 21:15 Propofol 100 ml @ 0 mls/hr TITRATE IV Last administered on 05/25/17 05:42; Start 05/22/17 at 21:15; Stop 05/25/17 at 11:49; Status DC Dextrose/Sodium Chloride (D5W-NS 1000 ml Inj) 1,000 ml @ 84 mls/hr [id number] IV Last administered on 05/23/17 08:14; Start 05/22/17 at 21:15; Stop 05/23/17 at 10: 27; Status DC Chlorhexidine Gluconate 15 ml 15 ml BID@08,20 MT Last administered on 05/25/17 09:27; Start 05/23/17 at 08:00 Potassium Chloride 100 ml @ 50 mls/hr Q2H PRN IV For Potassium 2.8 - 3.2 mEq/L ; Start 05/22/17 at 21:45 Potassium Chloride (KCl 20 Meq Premix Inj) 100 ml @ 50 mls/hr Q2H PRN IV For Potassium 2.8 - 3.2 mEq/L; Start 05/22/17 at 21:45 Potassium Bicarb/ Potassium Chloride 50 meq 50 meq UNSCH PRN PO For Potassium 3.3 - 3.5 mEq/L; Start 05/22/17 at 21:45 Potassium Chloride 100 ml @ 25 mls/hr UNSCH PRN IV For Potassium 3.3 - 3.5 mEq /L; Start 05/22/17 at 21:45 Potassium Chloride 100 ml @ 50 mls/hr Q2H PRN IV For Potassium 3.3 - 3.5 mEq/L ; Start 05/22/17 at 21:45 Magnesium Sulfate/ Sodium Chloride (Magnesium Sulfate Inj/NS Inj) 100 ml @ 50 mls/hr UNSCH PRN IV For Magnesium 0.9 - 1.1 mg/dL; Start 05/22/17 at 21:45 Magnesium Oxide 800 mg 800 mg UNSCH PRN PO For Magnesium 1.2 - 1.6 mg/dL; Start 05/22/17 at 21:45 Magnesium Sulfate/ Sodium Chloride (Magnesium Sulfate Inj/NS Inj) 100 ml @ 50 mls/hr UNSCH PRN IV For Magnesium 1.2 - 1.6 mg/dL; Start 05/22/17 at 21:45 Potassium Phosphate 2000 mg 2,000 mg Q4H PRN PO For Phosphorus < 2.5 mg/dL; Start 05/22/17 at 21:45 Sodium Phosphate/ Sodium Chloride (Sodium Phosphate Inj/NS 250 ml Inj) 250 ml @ 42 mls/hr UNSCH PRN IV For Phosphorus < 2.5 mg/dL; Start 05/22/17 at 21:45 Potassium Phosphate 2000 mg 2,000 mg UNSCH PRN PO/TUBE SEE LABEL COMMENTS; Start 05/22/17 at 21:45 Potassium Phosphate/Sodium Chloride (Potassium Phosphate Inj/NS 250 ml Inj) 260 ml @ 42 mls/hr UNSCH PRN IV SEE LABEL COMMENTS; Start 05/22/17 at 21:45 Dexamethasone Sodium Phosphate (Decadron Inj) 4 mg Q6HR IV PUSH Last administered on 05/24/17 05:10; Start 05/23/17 at 12:00; Stop 05/24/17 at 11:59; Status DC Furosemide (Lasix Inj) 20 mg ONCE ONCE IV PUSH Last administered on 05/23/17 10:47; Start 05/23/17 at 10:30; Stop 05/23/17 at 11:02; Status DC Albuterol/ Ipratropium (Duoneb Neb) 1 ampule Q6HR WHILE AWAKE NEB NEB Last administered on 05/26/17 07:40; Start 05/23/17 at 14:00 Gadodiamide 22 ml 22 ml STK-MED ONCE IV Last administered on 05/23/17 12:32; Start 05/23/17 at 12:32; Stop 05/23/17 at 12:33; Status DC Fentanyl Citrate (fentaNYL DRIP) 250 ml @ 0 mls/hr TITRATE IV Last administered on 05/24/17 20:13; Start 05/23/17 at 20:15; Stop 05/25/17 at 11:49; Status DC Lidocaine/ Epinephrine (Xylocaine-Epi 1%-1:100,000 Inj) 30 ml STK-MED ONCE .ROUTE Last administered on 05/24/17 02:00; Start 05/24/17 at 14:10; Stop at 14:11; Status DC Furosemide (Lasix Inj) 20 mg ONCE ONCE IV PUSH Last administered on 05/24/17 18:05; Start 05/24/17 at 17:15; Stop 05/24/17 at 17:16; Status DC Diltiazem HCl (Cardizem Inj) 20 mg STAT ONCE IV Last administered on 05/25/17 08:10; Start 05/25/17 at 08:15; Stop 05/25/17 at 08:16; Status DC Diltiazem HCl (Cardizem Inj) 25 mg STK-MED ONCE .ROUTE ; Start 05/25/17 at 08:09 ; Stop 05/25/17 at 08:10; Status DC Amoxicillin/ Clavulanate Potassium (Augmentin) 875 mg Q12HR PO Last administered on 05/25/17 19:26; Start 05/25/17 at 21:00; Stop 05/30/17 at 20:59 Oxycodone HCl (Roxicodone) 5 mg Q4H PRN PO pain 1-7; Start 05/25/17 at 12:00 Hydromorphone HCl 0.5 mg 0.5 mg Q4H PRN IV PUSH pain 8-10 or not taking po Last administered on 05/25/17 22:06; Start 05/25/17 at 12:00 Sodium Chloride (NS 500 ml Inj) 500 ml @ 50 mls/hr Q10H IV Last administered on 05/25/17 14:32; Start 05/25/17 at 12:00; Stop 05/25/17 at 21:59; Status DC A/P Assessment and Plan 81yM on chronic anticoagulation s/p mechanical fall with left neck/chest wall hematoma and airway compromise. Acute respiratory failure secondary to Large L supraclavicular hematoma (11 cm) , swelling Left posterior neck causing trachea shift and airway compromise s/p intubation/ extubation History of tobacco abuse Ankylosing spondylitis 1.17 cm right pulmonary nodule CT chest/neck 1.1 cm R pulmonary nodule, peripherally located adjacent to pleura. 2.6 cm mass in right paraspinous region, extending from subcarinal level. 11.3 cm x 7.3 cm L supraclavicular hematoma. Extends posterior to clavicle. No active extravasation. previously Discussed with Dr. Hill. Recommends repeat CT in 2-4 weeks and if these findings persist, obtain outpatient PET scan. Patient is known to Dr. Harry, following. -- s/p evacuation of hematoma 05/24 at bedside. --general surgery following. Atrial fibrillation with RVR on chronic anticoagulation with warfarin. Hypertension History of hyperlipidemia Coronary artery disease with prior stents about 12 years ago will resume metoprolol - continue to monitor and adjust the regimen as needed. Patient was no longer on statin per so removed from med rec. Hold warfarin as per below. 2d echo 05/23: EF 40 - 45%, small pericardial effusion without tamponade Fall History of mild dementia CT brain - 1 cm hypodensity and right caudate and internal capsule which may represent an old infarction. MRI confirms old infarct. 05/23 GERD Recinos's esophagus advance the diet slowly continue PPI Acute kidney injury- secondary to volume restrictive strategy to minimize laryngeal edema Monitor intake and output. Monitor electrolytes. Aspiration blood cultures negative and sputum culture with normal respiratory jevon pneumonia. cultures are negative x 48h, but elevated wbc. will de-escalate to po augmentin and continue x [address] chest - bilateral infiltrates posterior lower lung mcbride.(in addition to above discussed finding) Anemia Coagulopathy secondary to chronic warfarin anticoagulation on hold due to hematoma. Acute left elbow contusion XR elbow with no acute fracture. PROPH: Hold pharmacologic DVT prophylaxis due to hematoma. SCDs for DVT prophylaxis. Protonix 40 mg IV daily for stress ulcer prophylaxis and history of GERD transfer to telemetry when ok with pulmonary. Jose Antonio Gibbons MD May 26, 2017 09:19
[2017-05-26] MEDS ORDERED: PILL SPLITTER OTHER PRN (09:30)
[2017-05-26] MEDS: METOPROLOL SUCCINATE 25 MG EXTENDED RELEASE TAB PO SCH (09:58)
[2017-05-26] MEDS: PANTOPRAZOLE SODIUM 40 MG VIAL IV SCH (09:58)
[2017-05-26] MEDS: SODIUM CHLORIDE 0.9% FLUSH 10 ML FLUSH IV FLUSH SCH ×2 (09:58→21:09)
[2017-05-26] MEDS: AMOXICILLIN/CLAVULANATE K 875 MG TAB PO SCH ×2 (09:58→21:10)
[2017-05-26] MEDS: DOCUSATE SODIUM 50 MG/SENNA 8.6 MG TAB PO SCH ×2 (09:58→21:09)
--- NOTE | 2017-05-26 10:32 | MP ---
cc: LEWIS OGLESBY DATE OF SURGERY 05/25/2017 PREOPERATIVE DIAGNOSES 1. Acute respiratory failure. 2. Left supraclavicular hematoma. POSTOPERATIVE DIAGNOSES 1. Acute respiratory failure. 2. Left supraclavicular hematoma. PROCEDURE Evacuation of left supraclavicular hematoma. ANESTHESIA Sedation with propofol and local anesthetic with 1% lidocaine. ATTENDING SURGEON Dr. Oglesby. SHEARER HELPER None. COMPLICATIONS None. BLOOD LOSS Zero from the incision and estimated 300 mL of blood and blood clot removed from hematoma. INDICATIONS FOR PROCEDURE The patient is an 81-year-old male suffered a fall and developed a large supraclavicular hematoma with compression on his airway. The patient underwent intubation and correction of his coagulopathy. The patient was noted to have significant airway compression that continued due to mass of active hematoma and surrounding inflammation. The patient was being followed by pulmonology and evacuation of hematoma was requested and general surgery was requested for evaluation of the hematoma to assist with attempts at extubation. Informed consent was obtained from the family prior to the procedure. PROCEDURE DETAILS At the bedside in a medical ICU, the patient underwent sedation with propofol through his already in place propofol drip and placement of tracheal tube and mechanical ventilation. The left neck and supraclavicular shoulder were prepped and draped in sterile fashion with ChloraPrep. Local anesthetic 1% lidocaine was used at the most dependent portion of the hematoma. Incised with a 2 cm incision with an 11 blade scalpel. We bluntly entered the hematoma capsule with sterile gloves. We used a sterile Yankauer to suction out some liquefied blood clot and break up some loculated blood clot and hematoma and evacuated this with the Yankauer suction. After several minutes of back bleeding blood clot and hematoma I felt that the hematoma was essentially over 90% decompressed and removed. No active bleeding and only some old blood from the hematoma. We placed a pressure dressing over the area of hematoma and a dressing over the incision site. The patient remain on normal sedation in the intensive care unit. The patient tolerated the procedure well. No apparent complications was present. I was present and scrubbed for the entire procedure. MD IZABELA Whitmore/CHIN /2:12 AM /10:18 AM MTDD
--- NOTE | 2017-05-26 12:43 | HHI.PR ---
Subjective Remarks Alert and better today. Had left Supraclavicular hematoma drained..Now awake and breathing better.On 4 L o2. Needs Harvey cath . Chest /neck swelling down Objective Vital Signs Date Time Temp Pulse Resp B/P Pulse Ox O2 Delivery O2 Flow Rate FiO2 05/26/17 10:00 97 05/26/17 08:00 97.8 99 14 120/58 97 05/26/17 08:00 107 05/26/17 06:00 106 05/26/17 04:00 98.0 110 16 116/59 97 05/26/17 04:00 110 05/26/17 02:00 108 05/26/17 00:00 98.0 110 14 137/69 95 05/26/17 00:00 110 05/25/17 22:00 115 05/25/17 20:00 97.8 110 12 103/59 97 05/25/17 20:00 110 05/25/17 19:50 96 Nasal Cannula 3.00 05/25/17 18:00 111 05/25/17 16:00 97.6 123 17 110/66 95 05/25/17 16:00 123 05/25/17 14:00 135 I/O 05/25/17 05/25/17 05/25/17 05/26/17 05/26/17 05/26/17 07:00 15:00 23:00 07:00 15:00 23:00 Intake Total 671 ml 371 ml 388 ml 335 ml Output Total 500 ml 320 ml 500 ml Balance 171 ml 51 ml 388 ml -165 ml Intake Oral 60 ml 100 ml 240 ml IV Total 351 ml 221 ml 288 ml 95 ml Tube Feeding 320 ml 90 ml Output Urine Total 450 ml 320 ml 450 ml Gastric Drainage Total 50 ml 50 ml # Voids 0 Result Diagram: 05/25/1792405/25/17924 Objective Remarks GENERAL: This is a moderately obese elderly man who is alert . HEENT: Head is normocephalic. Pupils are reactive. Throat clear NECK: Supple with swelling of the left side of the neck. + Dressing. No venous distention. No thyromegaly. CHEST: Decreased excursions. Swelling of the left upper chest area and ecchymotic areas of the left chest wall. Decreased breath sounds to the left base and a few basilar crackles. HEART: The heart sounds are irregularly irregular. No murmur. No S3. ABDOMEN: Soft, obese, without masses, organomegaly or tenderness. EXTREMITIES: No Edema with mild varicosities. He is moving all of his extremities well. NEUROLOGIC: Reflexes are 1+ with negative Babinski. SKIN: No lesions. Assessment and Plan Assessment and Plan IMPRESSION 1. Acute respiratory failure. 2. A large left neck/supraclavicular hematoma with tracheal obstruction and deviation. 3. Upper airway stridor. 4. Atrial fibrillation with rapid ventricular response. 5. Hypertension. 6. Ankylosing spondylitis. 7. History of reactive airways. 8. Obstructive sleep apnea syndrome. 9. Possible aspiration pneumonia. Plan : 1. Wean O2 to 2l 2. Transfer to tele 3. Dressing change left neck 4. Cont antibiotics 5. PFT at bedside. 6. Veronique larry , Jaylen Bustillos MD May 26, 2017 12:42
[2017-05-26 13:11] LABS: AUTOMATED NEUTROPHIL # 9.4 TH/MM3 (1.8-7.7); BASOPHIL % 0.4 % (0.0-2.0); EOSINOPHIL # 0.1 TH/MM3 (0-0.4); EOSINOPHIL % 0.5 % (0.0-4.0); LYMPH % 9.7 % (9.0-44.0); LYMPHOCYTE # 1.1 TH/MM3 (1.0-4.8); MEAN CELL VOLUME 97.7 FL (80.0-100.0); MEAN CORPUSCULAR HEMOGLOBIN 33.2 PG (27.0-34.0); MONO % 9.7 % (0.0-8.0); NEUT % 79.7 % (16.0-70.0); PLATELET COUNT 190 TH/MM3 (150-450); RED BLOOD COUNT 2.97 MIL/MM3 (4.50-5.90); RED CELL DISTRIBUTION WIDTH 13.8 % (11.6-17.2); WHITE BLOOD COUNT 11.7 TH/MM3 (4.0-11.0)
[2017-05-26 13:12] LABS: HEMO FLAGS AUTO DIFF
[2017-05-26 13:34] LABS: BICARBONATE 27.2 MEQ/L (21.0-32.0); POTASSIUM 3.8 MEQ/L (3.5-5.1)
[2017-05-26 13:41] LABS: METAMYELOCYTES 1 % (0-1); MYELOCYTES 2 % (0-0); NEUTROPHIL # MANUAL DIFF 9.7 TH/MM3 (1.8-7.7); POLYS (SEG NEUTROPHILS) 80 % (16-70); WBC DIFF SAMPLE 100
[2017-05-26 13:42] LABS: PLATELET ESTIMATE SMEAR NORMAL (NORMAL); PLATELET MORPHOLOGY NORMAL (NORMAL); SCAN/DIFF FINAL DIFF MANUAL
--- NOTE | 2017-05-26 14:14 | HHI.PR ---
Subjective Subjective Notes Resting in bed Able to swallow without any complications at bedside Objective Vitals/I&O Vital Signs Date Time Temp Pulse Resp B/P Pulse Ox O2 Delivery O2 Flow Rate FiO2 05/26/17 12:00 104 05/26/17 12:00 97.5 20 132/62 97 05/25/17 19:50 Nasal Cannula 3.00 05/25/17 08:00 40 Labs Laboratory Tests Test 05/26/17 12:37 White Blood Count 11.7 Red Blood Count 2.97 Hemoglobin 9.9 Hematocrit 29.0 Mean Corpuscular Volume 97.7 Mean Corpuscular Hemoglobin 33.2 Mean Corpuscular Hemoglobin 34.0 Concent Red Cell Distribution Width 13.8 Platelet Count 190 Mean Platelet Volume 9.1 Neutrophils (%) (Auto) 79.7 Lymphocytes (%) (Auto) 9.7 Monocytes (%) (Auto) 9.7 Eosinophils (%) (Auto) 0.5 Basophils (%) (Auto) 0.4 Neutrophils # (Auto) 9.4 Lymphocytes # (Auto) 1.1 Monocytes # (Auto) 1.1 Eosinophils # (Auto) 0.1 Basophils # (Auto) 0.0 CBC Comment AUTO DIFF Differential Total Cells 100 Counted Neutrophils % (Manual) 80 Lymphocytes % 8 Monocytes % 9 Neutrophils # (Manual) 9.7 Metamyelocytes 1 Myelocytes 2 Differential Comment FINAL DIFF MANUAL Platelet Estimate NORMAL Platelet Morphology Comment NORMAL Red Cell Morphology Comment NORMAL Sodium Level 141 Potassium Level 3.8 Chloride Level 107 Carbon Dioxide Level 27.2 Anion Gap 7 Blood Urea Nitrogen 44 Creatinine 0.98 Estimat Glomerular Filtration 73 Rate Random Glucose 115 Calcium Level 8.4 Date/Time Procedure Status Source Growth 05/22/17 20:45 Gram Stain - Final Complete Sputum Endotracheal 05/22/17 20:45 Sputum Culture - Final Complete Sputum Endotracheal HEAVY GROWTH NORMAL RESPIRATORY MERLE 05/22/17 20:16 Urine Culture - Final Complete Urine Catheterized Urine NO GROWTH IN 48 HOURS. 05/22/17 18:25 Aerobic Blood Culture - Preliminary Resulted Blood Peripheral NO GROWTH IN 4 DAYS 05/22/17 18:25 Anaerobic Blood Culture - Preliminary Resulted Blood Peripheral NO GROWTH IN 4 DAYS Cardiovascular: Regular Lungs: Clear Abdomen: Non-distended, Non-tender Narrative Exam LEFT neck hematoma s/p drainage---bandage in place with minimal drainage No change in voice A/P Assessment and Plan 81 year old male s/p I&D of LEFT neck hematoma; on Coumadin -Continue clear liquids -Continue dressing changes BID -Pain control -Stable on NC Attending Statement The exam, history, and the medical decision-making described in the above note were completed with the assistance of the mid-level provider. I reviewed and agree with the findings presented. I attest that I had a [id number] encounter with the patient on the same day, and personally performed and documented my assessment and findings in the medical record. neck with less swelling and edema Suzy Pappas May 26, 2017 14:13 Mark Davenport MD May 28, 2017 10:39
[2017-05-26] MEDS: HYDROmorphone HCL PF 1 MG/ML VIAL IV PUSH PRN (16:24)
[2017-05-26] MEDS ORDERED: ENALAPRILAT 1.25 MG/ML VIAL IV PUSH PRN (16:45)
[2017-05-26] MEDS: CHLORHEXIDINE GLUCONATE 2 % 1 PACK (2 CLOTHS) TOP SCH (19:54)
[2017-05-27] VITALS (8 sets, daily range): BP systolic 114–157; BP diastolic 53–73; PULSE 89–112; RESP 18–24; TEMP 96–98.4; O2SAT 94–98
[2017-05-27 05:53] LABS: BASOPHIL % 0.1 % (0.0-2.0); EOSINOPHIL % 0.3 % (0.0-4.0); HEMATOCRIT 26.5 % (39.0-51.0); HEMO FLAGS DIFF FINAL; MEAN CELL VOLUME 98.4 FL (80.0-100.0); MEAN CORPUSCULAR HEMOGLOBIN 33.5 PG (27.0-34.0); MEAN CORPUSCULAR HGB CONC 34.1 % (32.0-36.0); MONO % 7.7 % (0.0-8.0); NEUT % 83.9 % (16.0-70.0); PLATELET COUNT 166 TH/MM3 (150-450); RED BLOOD COUNT 2.69 MIL/MM3 (4.50-5.90); RED CELL DISTRIBUTION WIDTH 13.7 % (11.6-17.2)
[2017-05-27] MEDS: CHLORHEXIDINE 0.12% (ORAL KIT) 15 ML CUP MT SCH ×2 (08:00→20:00)
[2017-05-27] MEDS: METOPROLOL SUCCINATE 25 MG EXTENDED RELEASE TAB PO SCH (08:56)
[2017-05-27] MEDS: PANTOPRAZOLE SODIUM 40 MG VIAL IV SCH (08:56)
[2017-05-27] MEDS: DOCUSATE SODIUM 50 MG/SENNA 8.6 MG TAB PO SCH ×2 (08:56→21:00)
[2017-05-27] MEDS: SODIUM CHLORIDE 0.9% FLUSH 10 ML FLUSH IV FLUSH SCH ×2 (08:56→21:29)
[2017-05-27] MEDS: AMOXICILLIN/CLAVULANATE K 875 MG TAB PO SCH ×2 (09:54→21:29)
--- NOTE | 2017-05-27 10:30 | HHI.PR ---
Subjective Remarks in no acute distress. has some pain to the left arm. looks more alert today. at the bedside. Objective Vitals Vital Signs Date Time Temp Pulse Resp B/P Pulse Ox O2 Delivery O2 Flow Rate FiO2 05/27/17 08:10 97.1 93 20 134/72 98 05/27/17 06:30 96.0 98 18 145/68 96 05/27/17 04:00 98.4 89 18 139/61 98 05/27/17 04:00 89 05/27/17 00:00 89 05/27/17 00:00 98.4 89 18 114/53 96 05/26/17 20:48 95 Nasal Cannula 4.00 05/26/17 20:27 95 Nasal Cannula 4.00 05/26/17 20:00 106 05/26/17 20:00 98.1 106 18 146/67 96 05/26/17 18:00 107 05/26/17 16:57 18 05/26/17 16:00 98.3 125 19 194/83 94 05/26/17 16:00 125 05/26/17 14:00 106 05/26/17 12:00 104 05/26/17 12:00 97.5 104 20 132/62 97 I/O 05/26/17 05/26/17 05/26/17 05/27/17 05/27/17 05/27/17 07:00 15:00 23:00 07:00 15:00 23:00 Intake Total 335 ml 486 ml 200 ml 0 ml Output Total 500 ml 765 ml 600 ml 300 ml Balance -165 ml -279 ml -400 ml -300 ml Intake Oral 240 ml 240 ml 200 ml 0 ml IV Total 95 ml 246 ml 0 ml 0 ml Output Urine Total 450 ml 765 ml 600 ml 300 ml Gastric Drainage Total 50 ml # Bowel Movements 1 Result Diagram: 05/27/17 0351 05/26/17 1237 Imaging Last Impressions Chest X-Ray 05/26/17 0600 Signed Impressions: Service Date/Time: Friday, May 26, 2017 04:14 - CONCLUSION: Minimal infiltrate left lung base. Most of the lungs are clear. Ubaldo Ritchie MD Elbow X-Ray 05/23/17 0129 Signed Impressions: Service Date/Time: Tuesday, May 23, 2017 04:04 - CONCLUSION: No acute fracture/effusion. Lopez Carrillo MD Brain MRI 05/23/17 Signed Impressions: Service Date/Time: Tuesday, May 23, 2017 11:46 - CONCLUSION: 1. 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 2. Bilateral cortical atrophy and chronic white matter changes. Jair Brantley MD Head CT 05/22/17 1739 Signed Impressions: Service Date/Time: May 18:00 - CONCLUSION: 1 cm hypodensity in the right caudate and internal capsule may represent an old infarction. However, in the absence of prior films and with the history of recent trauma, recommend further characterization of this finding with MRI of brain with and without contrast. Matthew Hill MD Neck CT 05/22/17 Signed Impressions: Service Date/Time: May 18:00 - CONCLUSION: Abnormal appearance the left supraclavicular region with greater the 11 cm mass which probably represents 3 adjacent components in contact with each other. One of the components has cystic or necrotic area. There is also a 4th opacity in the posterior lower left neck which surrounds the scapular spine and is more infiltrative in appearance. The findings are highly suspicious for malignancy. Matthew Hill MD Chest CT 05/22/17 Signed Impressions: Service Date/Time: May 18:15 - CONCLUSION: Greater than 11 cm left supraclavicular mass is suspicious for malignancy. There is also a midthoracic right paraspinal mass measuring 4 cm in superior-inferior extent and an 11 mm right pulmonary nodule. Recommend PET/CT scan to evaluate metabolic behavior and to help in decision making regarding biopsy planning. Matthew Hill MD ADDENDUM: Additional history is now available; recent fall and the patient is on anticoagulation. The large mass in the left supraclavicular region has an appearance which is entirely consisted with a hematoma. The mediastinal adenopathy in the 1 cm nodule, however, are not characteristic of trauma. Recommend performing followup CT in one month specifically does the if the lung and mediastinal findings persist and if so, then consideration of PET/CT scan. Matthew Hill MD Objective Remarks GENERAL: This is a well-nourished, well-developed patient, in no apparent distress. CARDIOVASCULAR: Regular rate and regular rhythm without murmurs, gallops, or rubs. RESPIRATORY: Clear to auscultation. Breath sounds equal bilaterally. No wheezes , rales, or rhonchi. GASTROINTESTINAL: Abdomen soft, non-tender, nondistended. Normal, active bowel sounds MUSCULOSKELETAL: Extremities without clubbing, cyanosis, or edema. NEURO: mildly lethargic but easily arousable Medications and IVs Current Medications Sodium Chloride (NS Flush) 2 ml UNSCH PRN IVF FLUSH AFTER USING IV ACCESS; Start 05/22/17 at 15:30; Stop 05/22/17 at 21:19; Status DC Etomidate 40 mg 40 mg STK-MED ONCE .ROUTE ; Start 05/22/17 at 15:36; Stop at 15:37; Status DC Propofol (Diprivan 1000 Mg/100ml Inj) 100 ml @ As Directed STK-MED ONCE .ROUTE ; Start 05/22/17 at 15:45; Stop 05/22/17 at 15:46; Status DC Etomidate (Amidate Inj) 20 mg ONCE ONCE IV PUSH Last administered on 05/22/17 16:17; Start 05/22/17 at 16:00; Stop 05/22/17 at 16:01; Status DC Rocuronium [place] 50 mg 50 mg BOLUS ONCE IV Last administered on 05/22/17 16: 17; Start 05/22/17 at 16:00; Stop 05/22/17 at 16:01; Status DC Propofol (Diprivan 1000 Mg/100ml Inj) 100 ml @ 0 mls/hr TITRATE IV Last administered on 05/22/17 19:41; Start 05/22/17 at 16:00; Stop 05/22/17 at 21:19; Status DC Diltiazem HCl 20 mg 20 mg ONCE ONCE IV Last administered on 05/22/17 18:43; Start 05/22/17 at 17:30; Stop 05/22/17 at 17:31; Status DC Ceftriaxone Sodium 1000 mg/ Sodium Chloride 100 ml @ 200 mls/hr ONCE ONCE IV Last administered on 05/22/17 18:50; Start 05/22/17 at 18:00; Stop 05/22/17 at 18: 29; Status DC Azithromycin/ Sodium Chloride (Zithromax Inj/ NS 250 ml Inj) 250 ml @ 250 mls/ hr ONCE ONCE IV Last administered on 05/22/17 19:47; Start 05/22/17 at 18:00; Stop 05/22/17 at 18:59; Status DC Iohexol 60 ml 60 ml STK-MED ONCE IV Last administered on 05/22/17 18:23; Start 05/22/17 at 18:23; Stop 05/22/17 at 18:24; Status DC Phytonadione 10 mg/Sodium Chloride 51 ml @ 102 mls/hr ONCE ONCE IV ; Start 05/22/17 at 20:15; Stop 05/22/17 at 20:15; Status Cancel Azithromycin 500 mg/Sodium Chloride 250 ml @ 250 mls/hr Q24H IV Last administered on 05/23/17 20:46; Start 05/23/17 at 20:00; Stop 05/23/17 at 20:30; Status DC Ceftriaxone Sodium 1000 mg/ Sodium Chloride 100 ml @ 200 mls/hr Q12H IV ; Start 05/23/17 at 06:00; Stop 05/23/17 at 06:00; Status DC Piperacillin Sod/ Tazobactam Sod 50 ml @ 100 mls/hr Q6H IV Last administered on 05/25/17 09:25; Start 05/22/17 at 21:00; Stop 05/25/17 at 11:49; Status DC Phytonadione 10 mg/Dextrose 51 ml @ 102 mls/hr ONCE ONCE IV ; Start 05/22/17 at 20:45; Stop 05/22/17 at 21:15; Status DC Phytonadione/ Sodium Chloride (Vitamin K Inj/ NS Inj) 50.5 ml @ 102 mls/hr ONCE ONCE IV Last administered on 05/22/17 21:41; Start 05/22/17 at 21:00; Stop 05/22/17 at 21:29; Status DC Sodium Chloride (NS Flush) 2 ml UNSCH PRN IV FLUSH FLUSH AFTER USING IV ACCESS ; Start 05/22/17 at 21:15 Sodium Chloride (NS Flush) 2 ml BID IV FLUSH Last administered on 05/27/17 08: 56; Start 05/23/17 at 09:00 Acetaminophen (Tylenol) 650 mg Q6H PRN PO PAIN 1-2 AND/OR FEVER >101F; Start at 21:15 Fentanyl Citrate (fentaNYL INJ) 50 mcg Q1H PRN IV PUSH Pain scale 6-10 &/or sedation; Start 05/22/17 at 21:15; Stop 05/25/17 at 11:49; Status DC Pantoprazole Sodium (Protonix Inj) 40 mg DAILY IV Last administered on 08:56; Start 05/23/17 at 09:00 Ondansetron HCl (Zofran Inj) 4 mg Q6H PRN IV NAUSEA OR VOMITING; Start 05/22/17 at 21:15 Albuterol Sulfate (Albuterol Neb) 2.5 mg Q2HR NEB PRN INH SOB/WHEEZING; Start 05/22/17 at 21:15 Miscellaneous Information 1 [id number] ; Start 05/22/17 at 21:15 Chlorhexidine Gluconate (Chlorhexidine 2% Cloth) 3 pack Taper DAILY@04 TOP Last administered on 05/25/17 19:03; Start 05/23/17 at 04:00; Stop 05/19/18 at 03: 59 Chlorhexidine Gluconate (Chlorhexidine 2% Cloth) 3 pack UNSCH PRN TOP HYGIENIC CARE; Start 05/22/17 at 21:15 Senna/Docusate Sodium (Kiah-Colace) 1 tab BID PO Last administered on 08:56; Start 05/23/17 at 09:00 Magnesium Hydroxide (Milk Of Magnesia Liq) 30 ml Q12H PRN PO MILD - MODERATE CONSTIPATION; Start 05/22/17 at 21:15 Sennosides (Senokot) 17.2 mg Q12H PRN PO MODERATE - SEVERE CONSTIPATION; Start 05/22/17 at 21:15 Bisacodyl (Dulcolax Supp) 10 mg DAILY PRN RECTAL SEVERE CONSITIPATION; Start at 21:15 Lactulose 30 ml 30 ml DAILY PRN PO SEVERE CONSITIPATION; Start 05/22/17 at 21:15 Propofol 100 ml @ 0 mls/hr TITRATE IV Last administered on 05/25/17 05:42; Start 05/22/17 at 21:15; Stop 05/25/17 at 11:49; Status DC Dextrose/Sodium Chloride (D5W-NS 1000 ml Inj) 1,000 ml @ 84 mls/hr [id number] IV Last administered on 05/23/17 08:14; Start 05/22/17 at 21:15; Stop 05/23/17 at 10: 27; Status DC Chlorhexidine Gluconate 15 ml 15 ml BID@08,20 MT Last administered on 05/25/17 09:27; Start 05/23/17 at 08:00 Potassium Chloride 100 ml @ 50 mls/hr Q2H PRN IV For Potassium 2.8 - 3.2 mEq/L ; Start 05/22/17 at 21:45; Stop 05/26/17 at 13:20; Status DC Potassium Chloride (KCl 20 Meq Premix Inj) 100 ml @ 50 mls/hr Q2H PRN IV For Potassium 2.8 - 3.2 mEq/L; Start 05/22/17 at 21:45; Stop 05/26/17 at 13:20; Status DC Potassium Bicarb/ Potassium Chloride 50 meq 50 meq UNSCH PRN PO For Potassium 3.3 - 3.5 mEq/L; Start 05/22/17 at 21:45; Stop 05/26/17 at 13:20; Status DC Potassium Chloride 100 ml @ 25 mls/hr UNSCH PRN IV For Potassium 3.3 - 3.5 mEq /L; Start 05/22/17 at 21:45; Stop 05/26/17 at 13:20; Status DC Potassium Chloride 100 ml @ 50 mls/hr Q2H PRN IV For Potassium 3.3 - 3.5 mEq/L ; Start 05/22/17 at 21:45; Stop 05/26/17 at 13:20; Status DC Magnesium Sulfate/ Sodium Chloride (Magnesium Sulfate Inj/NS Inj) 100 ml @ 50 mls/hr UNSCH PRN IV For Magnesium 0.9 - 1.1 mg/dL; Start 05/22/17 at 21:45; Stop 05/26/17 at 13:21; Status DC Magnesium Oxide 800 mg 800 mg UNSCH PRN PO For Magnesium 1.2 - 1.6 mg/dL; Start 05/22/17 at 21:45; Stop 05/26/17 at 13:21; Status DC Magnesium Sulfate/ Sodium Chloride (Magnesium Sulfate Inj/NS Inj) 100 ml @ 50 mls/hr UNSCH PRN IV For Magnesium 1.2 - 1.6 mg/dL; Start 05/22/17 at 21:45; Stop 05/26/17 at 13:21; Status DC Potassium Phosphate 2000 mg 2,000 mg Q4H PRN PO For Phosphorus < 2.5 mg/dL; Start 05/22/17 at 21:45; Stop 05/26/17 at 13:21; Status DC Sodium Phosphate/ Sodium Chloride (Sodium Phosphate Inj/NS 250 ml Inj) 250 ml @ 42 mls/hr UNSCH PRN IV For Phosphorus < 2.5 mg/dL; Start 05/22/17 at 21:45; Stop 05/26/17 at 13:21; Status DC Potassium Phosphate 2000 mg 2,000 mg UNSCH PRN PO/TUBE SEE LABEL COMMENTS; Start 05/22/17 at 21:45; Stop 05/26/17 at 13:21; Status DC Potassium Phosphate/Sodium Chloride (Potassium Phosphate Inj/NS 250 ml Inj) 260 ml @ 42 mls/hr UNSCH PRN IV SEE LABEL COMMENTS; Start 05/22/17 at 21:45; Stop 05/26/17 at 13:20; Status DC Dexamethasone Sodium Phosphate (Decadron Inj) 4 mg Q6HR IV PUSH Last administered on 05/24/17 05:10; Start 05/23/17 at 12:00; Stop 05/24/17 at 11:59; Status DC Furosemide (Lasix Inj) 20 mg ONCE ONCE IV PUSH Last administered on 05/23/17 10:47; Start 05/23/17 at 10:30; Stop 05/23/17 at 11:02; Status DC Albuterol/ Ipratropium (Duoneb Neb) 1 ampule Q6HR WHILE AWAKE NEB NEB Last administered on 05/26/17 20:26; Start 05/23/17 at 14:00 Gadodiamide 22 ml 22 ml STK-MED ONCE IV Last administered on 05/23/17 12:32; Start 05/23/17 at 12:32; Stop 05/23/17 at 12:33; Status DC Fentanyl Citrate (fentaNYL DRIP) 250 ml @ 0 mls/hr TITRATE IV Last administered on 05/24/17 20:13; Start 05/23/17 at 20:15; Stop 05/25/17 at 11:49; Status DC Lidocaine/ Epinephrine (Xylocaine-Epi 1%-1:100,000 Inj) 30 ml STK-MED ONCE .ROUTE Last administered on 05/24/17 02:00; Start 05/24/17 at 14:10; Stop at 14:11; Status DC Furosemide (Lasix Inj) 20 mg ONCE ONCE IV PUSH Last administered on 05/24/17 18:05; Start 05/24/17 at 17:15; Stop 05/24/17 at 17:16; Status DC Diltiazem HCl (Cardizem Inj) 20 mg STAT ONCE IV Last administered on 05/25/17 08:10; Start 05/25/17 at 08:15; Stop 05/25/17 at 08:16; Status DC Diltiazem HCl (Cardizem Inj) 25 mg STK-MED ONCE .ROUTE ; Start 05/25/17 at 08:09 ; Stop 05/25/17 at 08:10; Status DC Amoxicillin/ Clavulanate Potassium (Augmentin) 875 mg Q12HR PO Last administered on 05/27/17 09:54; Start 05/25/17 at 21:00; Stop 05/30/17 at 20:59 Oxycodone HCl (Roxicodone) 5 mg Q4H PRN PO pain 1-7; Start 05/25/17 at 12:00 Hydromorphone HCl 0.5 mg 0.5 mg Q4H PRN IV PUSH pain 8-10 or not taking po Last administered on 05/26/17 16:24; Start 05/25/17 at 12:00 Sodium Chloride (NS 500 ml Inj) 500 ml @ 50 mls/hr Q10H IV Last administered on 05/25/17 14:32; Start 05/25/17 at 12:00; Stop 05/25/17 at 21:59; Status DC Metoprolol Succinate (Toprol Xl) 12.5 mg DAILY PO Last administered on 08:56; Start 05/26/17 at 09:30 Miscellaneous (Pill Splitter) 1 ea UNSCH PRN OTHER SEE LABEL COMMENTS; Start at 09:30 Enalaprilat (Vasotec Inj) 1.25 mg Q8H PRN IV PUSH SYSTOLIC BP >180 mmHg Last administered on 05/26/17t 16:57; Start 05/26/17 at 16:45 A/P Assessment and Plan 81yM on chronic anticoagulation s/p mechanical fall with left neck/chest wall hematoma and airway compromise. Acute respiratory failure secondary to Large L supraclavicular hematoma (11 cm) , swelling Left posterior neck causing trachea shift and airway compromise s/p intubation/ extubation History of tobacco abuse Ankylosing spondylitis 1.17 cm right pulmonary nodule CT chest/neck 1.1 cm R pulmonary nodule, peripherally located adjacent to pleura. 2.6 cm mass in right paraspinous region, extending from subcarinal level. 11.3 cm x 7.3 cm L supraclavicular hematoma. Extends posterior to clavicle. No active extravasation. previously Discussed with Dr. Hill. Recommends repeat CT in 2-4 weeks and if these findings persist, obtain outpatient PET scan. Patient is known to Dr. Harry, pulmonary following. L supraclavicular hematoma -- s/p evacuation of hematoma 05/24 at bedside. --general surgery following. -consult OT Atrial fibrillation with RVR on chronic anticoagulation with warfarin. Hypertension History of hyperlipidemia Coronary artery disease with prior stents about 12 years ago resumed metoprolol - continue to monitor and adjust the regimen as needed. Patient was no longer on statin per so removed from med rec. Hold warfarin due to hematoma. 2d echo 05/23: EF 40 - 45%, small pericardial effusion without tamponade Fall History of mild dementia CT brain - 1 cm hypodensity and right caudate and internal capsule which may represent an old infarction. MRI confirms old infarct. 05/23 GERD Recinos's esophagus advance the diet slowly continue PPI Acute kidney injury- secondary to volume restrictive strategy to minimize laryngeal edema Monitor intake and output. Monitor electrolytes. Aspiration blood cultures negative and sputum culture with normal respiratory jevon pneumonia. cultures are negative x 48h, but elevated wbc. continue po augmentin and continue x [address] chest - bilateral infiltrates posterior lower lung mcbride.(in addition to above discussed finding) Anemia Coagulopathy secondary to chronic warfarin anticoagulation on hold due to hematoma. Acute left elbow contusion XR elbow with no acute fracture. PROPH: Hold pharmacologic DVT prophylaxis due to hematoma. SCDs for DVT prophylaxis. Discharge Planning case management consulted to assist with dc planning to rehab. Jose Antonio Gibbons MD May 27, 2017 10:30
[2017-05-27] MEDS: RESP: ALBUTEROL 2.5 MG/IPRATROPIUM 0.5 MG NEB (SCH) NEB (10:59)
--- NOTE | 2017-05-27 14:22 | HHI.PR ---
Subjective Subjective Notes Sitting up in bed No complaints at bedside Objective Vitals/I&O Vital Signs Date Time Temp Pulse Resp B/P Pulse Ox O2 Delivery O2 Flow Rate FiO2 05/27/17 12:32 96.1 101 18 137/67 97 05/27/17 11:00 Nasal Cannula 3.00 05/25/17 08:00 40 Labs Laboratory Tests Test 05/27/17 03:51 White Blood Count 12.0 Red Blood Count 2.69 Hemoglobin 9.0 Hematocrit 26.5 Mean Corpuscular Volume 98.4 Mean Corpuscular Hemoglobin 33.5 Mean Corpuscular Hemoglobin 34.1 Concent Red Cell Distribution Width 13.7 Platelet Count 166 Mean Platelet Volume 9.4 Neutrophils (%) (Auto) 83.9 Lymphocytes (%) (Auto) 8.0 Monocytes (%) (Auto) 7.7 Eosinophils (%) (Auto) 0.3 Basophils (%) (Auto) 0.1 Neutrophils # (Auto) 10.0 Lymphocytes # (Auto) 1.0 Monocytes # (Auto) 0.9 Eosinophils # (Auto) 0.0 Basophils # (Auto) 0.0 CBC Comment DIFF FINAL Differential Comment Date/Time Procedure Status Source Growth 05/22/17 20:45 Gram Stain - Final Complete Sputum Endotracheal 05/22/17 20:45 Sputum Culture - Final Complete Sputum Endotracheal HEAVY GROWTH NORMAL RESPIRATORY MERLE 05/22/17 20:16 Urine Culture - Final Complete Urine Catheterized Urine NO GROWTH IN 48 HOURS. 05/22/17 18:25 Aerobic Blood Culture - Final Complete Blood Peripheral NO GROWTH IN 5 DAYS 05/22/17 18:25 Anaerobic Blood Culture - Final Complete Blood Peripheral NO GROWTH IN 5 DAYS Cardiovascular: Regular Lungs: Clear Abdomen: Non-distended, Non-tender Extremities: Other (see below ) Narrative Exam LEFT neck hematoma s/p drainage---bandage in place with minimal drainage No change in voice A/P Assessment and Plan 81 year old male s/p I&D of LEFT neck hematoma; on Coumadin -Diet as tolerated -Continue dressing changes BID -Pain control -Stable on NC -GS will follow peripherally Suzy Pappas May 27, 2017 14:22
--- NOTE | 2017-05-27 18:35 | HHI.PR ---
Subjective Remarks Stable and on O2 3 L. Had left Supraclavicular hematoma drained. Needs Harvey cath . Chest /neck swelling down. was confused today Objective Vital Signs Date Time Temp Pulse Resp B/P Pulse Ox O2 Delivery O2 Flow Rate FiO2 05/27/17 15:53 97.3 112 20 157/73 96 05/27/17 12:32 96.1 101 18 137/67 97 05/27/17 11:00 98 Nasal Cannula 3.00 05/27/17 08:10 97.1 93 20 134/72 98 05/27/17 06:30 96.0 98 18 145/68 96 05/27/17 04:00 98.4 89 18 139/61 98 05/27/17 04:00 89 05/27/17 00:00 89 05/27/17 00:00 98.4 89 18 114/53 96 05/26/17 20:48 95 Nasal Cannula 4.00 05/26/17 20:27 95 Nasal Cannula 4.00 05/26/17 20:00 106 05/26/17 20:00 98.1 106 18 146/67 96 I/O 05/26/17 05/26/17 05/26/17 05/27/17 05/27/17 05/27/17 07:00 15:00 23:00 07:00 15:00 23:00 Intake Total 335 ml 486 ml 200 ml 0 ml 960 ml Output Total 500 ml 765 ml 600 ml 300 ml 550 ml Balance -165 ml -279 ml -400 ml -300 ml 410 ml Intake Oral 240 ml 240 ml 200 ml 0 ml 960 ml IV Total 95 ml 246 ml 0 ml 0 ml Output Urine Total 450 ml 765 ml 600 ml 300 ml 550 ml Gastric Drainage Total 50 ml # Bowel Movements 1 2 Result Diagram: 05/27/17 0351 05/26/17 1237 Objective Remarks GENERAL: This is a moderately obese elderly man who is alert . HEENT: Head is normocephalic. Pupils are reactive. NECK: Supple with mild edema. No venous distention. No thyromegaly. CHEST: Decreased excursions. Swelling of the left upper chest area and ecchymotic areas of the left chest wall. Decreased breath sounds to the left base . HEART: The heart sounds are irregularly irregular. No murmur. No S3. ABDOMEN: Soft, obese, without masses, organomegaly or tenderness. EXTREMITIES: No Edema with mild varicosities. He is moving all of his extremities well. NEUROLOGIC: Reflexes are 1+ with no deficits SKIN: No lesions. Assessment and Plan Assessment and Plan IMPRESSION 1. Acute respiratory failure. 2. A large left neck/supraclavicular hematoma with tracheal obstruction and deviation. 3. Upper airway stridor. 4. Atrial fibrillation with rapid ventricular response. 5. Hypertension. 6. Ankylosing spondylitis. 7. History of reactive airways. 8. Obstructive sleep apnea syndrome. 9. Possible aspiration pneumonia. Plan : 1. Wean O2 to 2l 2. IS at bedside q3h 3. CBC,BMP ,CXR in am 4. Cont antibiotics 5. Symbicort inhaler , 2puffs bid 6. Nebs qid , Jaylen Bustillos MD May 27, 2017 18:35
[2017-05-28] VITALS (8 sets, daily range): BP systolic 125–158; BP diastolic 58–78; PULSE 86–109; RESP 18–24; TEMP 96.3–100.5; O2SAT 96–100
[2017-05-28] MEDS: CHLORHEXIDINE GLUCONATE 2 % 1 PACK (2 CLOTHS) TOP SCH (04:00)
--- NOTE | 2017-05-28 06:45 | RADRPT ---
EXAM DATE/TIME: 05/28/2017 06:15 [facility] COMPARISON: CHEST SINGLE AP, May 26, 2017, 4:14. INDICATIONS : Infiltrate. Cough. MEDICAL HISTORY : Atrial fibrilation. Dementia. CAD. SURGICAL HISTORY : Cardiac stents. ENCOUNTER: Subsequent ACUITY: 4 - 6 days PAIN SCORE: 0/10 LOCATION: Bilateral chest FINDINGS: Mild bibasilar consolidation again noted, slightly worse on both sides. Small left pleural effusion s uspected as well. No pneumothorax. Heart size stable, upper limits of normal. CONCLUSION: Bibasilar consolidation and small left pleural effusion slightly worse. Jayce Fierro MD on May 28, 2017 at 6:43 Board Certified Radiologist. This report was verified electronically.
[2017-05-28] MEDS: CHLORHEXIDINE 0.12% (ORAL KIT) 15 ML CUP MT SCH ×2 (08:00→20:00)
[2017-05-28] MEDS: METOPROLOL SUCCINATE 25 MG EXTENDED RELEASE TAB PO SCH (08:20)
[2017-05-28] MEDS: AMOXICILLIN/CLAVULANATE K 875 MG TAB PO SCH ×2 (08:20→21:55)
[2017-05-28] MEDS: SODIUM CHLORIDE 0.9% FLUSH 10 ML FLUSH IV FLUSH SCH ×2 (08:20→21:56)
[2017-05-28] MEDS: DOCUSATE SODIUM 50 MG/SENNA 8.6 MG TAB PO SCH ×2 (08:20→21:55)
[2017-05-28] MEDS: PANTOPRAZOLE SODIUM 40 MG VIAL IV SCH (08:20)
--- NOTE | 2017-05-28 10:19 | HHI.PR ---
Subjective Remarks resting comfortably with no distress. has some pain to the left arm. Tmax 100.5. at the bedside. d/w the RN. Objective Vitals Vital Signs Date Time Temp Pulse Resp B/P Pulse Ox O2 Delivery O2 Flow Rate FiO2 05/28/17 08:14 96.9 88 19 148/76 99 05/28/17 07:22 89 05/28/17 06:45 98.0 90 24 135/63 97 05/28/17 00:00 100.5 103 24 125/58 96 05/27/17 20:00 97.7 106 24 137/63 94 05/27/17 20:00 90 05/27/17 15:53 97.3 112 20 157/73 96 05/27/17 12:32 96.1 101 18 137/67 97 05/27/17 11:00 98 Nasal Cannula 3.00 I/O 05/27/17 05/27/17 05/27/17 05/28/17 05/28/17 05/28/17 07:00 15:00 23:00 07:00 15:00 23:00 Intake Total 0 ml 960 ml Output Total 300 ml 550 ml 500 ml 250 ml Balance -300 ml 410 ml -500 ml -250 ml Intake Oral 0 ml 960 ml IV Total 0 ml Output Urine Total 300 ml 550 ml 500 ml 250 ml # Bowel Movements 1 2 1 Result Diagram: 05/27/17 0351 05/26/17 1237 Imaging Last Impressions Chest X-Ray 05/28/17 0600 Signed Impressions: Service Date/Time: Sunday, May 28, 2017 06:15 - CONCLUSION: Bibasilar consolidation and small left pleural effusion slightly worse. Jayce Fierro MD Elbow X-Ray 05/23/17 0129 Signed Impressions: Service Date/Time: Tuesday, May 23, 2017 04:04 - CONCLUSION: No acute fracture/effusion. Lopez Carrillo MD Brain MRI 05/23/17 0000 Signed Impressions: Service Date/Time: Tuesday, May 23, 2017 11:46 - CONCLUSION: 1. 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 2. Bilateral cortical atrophy and chronic white matter changes. Jair Brantley MD Head CT 05/22/17 1739 Signed Impressions: Service Date/Time: May 18:00 - CONCLUSION: 1 cm hypodensity in the right caudate and internal capsule may represent an old infarction. However, in the absence of prior films and with the history of recent trauma, recommend further characterization of this finding with MRI of brain with and without contrast. Matthew Hill MD Neck CT 05/22/17 0000 Signed Impressions: Service Date/Time: May 18:00 - CONCLUSION: Abnormal appearance the left supraclavicular region with greater the 11 cm mass which probably represents 3 adjacent components in contact with each other. One of the components has cystic or necrotic area. There is also a 4th opacity in the posterior lower left neck which surrounds the scapular spine and is more infiltrative in appearance. The findings are highly suspicious for malignancy. Matthew Hill MD Chest CT 05/22/17 Signed Impressions: Service Date/Time: May 18:15 - CONCLUSION: Greater than 11 cm left supraclavicular mass is suspicious for malignancy. There is also a midthoracic right paraspinal mass measuring 4 cm in superior-inferior extent and an 11 mm right pulmonary nodule. Recommend PET/CT scan to evaluate metabolic behavior and to help in decision making regarding biopsy planning. Matthew Hill MD ADDENDUM: Additional history is now available; recent fall and the patient is on anticoagulation. The large mass in the left supraclavicular region has an appearance which is entirely consisted with a hematoma. The mediastinal adenopathy in the 1 cm nodule, however, are not characteristic of trauma. Recommend performing followup CT in one month specifically does the if the lung and mediastinal findings persist and if so, then consideration of PET/CT scan. Matthew Hill MD Objective Remarks GENERAL: This is a well-nourished, well-developed patient, in no apparent distress. CARDIOVASCULAR: Regular rate and regular rhythm without murmurs, gallops, or rubs. RESPIRATORY: Clear to auscultation. Breath sounds equal bilaterally. No wheezes , rales, or rhonchi. GASTROINTESTINAL: Abdomen soft, non-tender, nondistended. Normal, active bowel sounds MUSCULOSKELETAL: Extremities without clubbing, cyanosis, or edema. NEURO: mildly lethargic but easily arousable Medications and IVs Current Medications Sodium Chloride (NS Flush) 2 ml UNSCH PRN IVF FLUSH AFTER USING IV ACCESS; Start 05/22/17 at 15:30; Stop 05/22/17 at 21:19; Status DC Etomidate 40 mg 40 mg STK-MED ONCE .ROUTE ; Start 05/22/17 at 15:36; Stop at 15:37; Status DC Propofol (Diprivan 1000 Mg/100ml Inj) 100 ml @ As Directed STK-MED ONCE .ROUTE ; Start 05/22/17 at 15:45; Stop 05/22/17 at 15:46; Status DC Etomidate (Amidate Inj) 20 mg ONCE ONCE IV PUSH Last administered on 05/22/17 16:17; Start 05/22/17 at 16:00; Stop 05/22/17 at 16:01; Status DC Rocuronium [place] 50 mg 50 mg BOLUS ONCE IV Last administered on 05/22/17 16: 17; Start 05/22/17 at 16:00; Stop 05/22/17 at 16:01; Status DC Propofol (Diprivan 1000 Mg/100ml Inj) 100 ml @ 0 mls/hr TITRATE IV Last administered on 05/22/17 19:41; Start 05/22/17 at 16:00; Stop 05/22/17 at 21:19; Status DC Diltiazem HCl 20 mg 20 mg ONCE ONCE IV Last administered on 05/22/17 18:43; Start 05/22/17 at 17:30; Stop 05/22/17 at 17:31; Status DC Ceftriaxone Sodium 1000 mg/ Sodium Chloride 100 ml @ 200 mls/hr ONCE ONCE IV Last administered on 05/22/17 18:50; Start 05/22/17 at 18:00; Stop 05/22/17 at 18: 29; Status DC Azithromycin/ Sodium Chloride (Zithromax Inj/ NS 250 ml Inj) 250 ml @ 250 mls/ hr ONCE ONCE IV Last administered on 05/22/17 19:47; Start 05/22/17 at 18:00; Stop 05/22/17 at 18:59; Status DC Iohexol 60 ml 60 ml STK-MED ONCE IV Last administered on 05/22/17 18:23; Start 05/22/17 at 18:23; Stop 05/22/17 at 18:24; Status DC Phytonadione 10 mg/Sodium Chloride 51 ml @ 102 mls/hr ONCE ONCE IV ; Start 05/22/17 at 20:15; Stop 05/22/17 at 20:15; Status Cancel Azithromycin 500 mg/Sodium Chloride 250 ml @ 250 mls/hr Q24H IV Last administered on 05/23/17 20:46; Start 05/23/17 at 20:00; Stop 05/23/17 at 20:30; Status DC Ceftriaxone Sodium 1000 mg/ Sodium Chloride 100 ml @ 200 mls/hr Q12H IV ; Start 05/23/17 at 06:00; Stop 05/23/17 at 06:00; Status DC Piperacillin Sod/ Tazobactam Sod 50 ml @ 100 mls/hr Q6H IV Last administered on 05/25/17 09:25; Start 05/22/17 at 21:00; Stop 05/25/17 at 11:49; Status DC Phytonadione 10 mg/Dextrose 51 ml @ 102 mls/hr ONCE ONCE IV ; Start 05/22/17 at 20:45; Stop 05/22/17 at 21:15; Status DC Phytonadione/ Sodium Chloride (Vitamin K Inj/ NS Inj) 50.5 ml @ 102 mls/hr ONCE ONCE IV Last administered on 05/22/17 21:41; Start 05/22/17 at 21:00; Stop 05/22/17 at 21:29; Status DC Sodium Chloride (NS Flush) 2 ml UNSCH PRN IV FLUSH FLUSH AFTER USING IV ACCESS ; Start 05/22/17 at 21:15 Sodium Chloride (NS Flush) 2 ml BID IV FLUSH Last administered on 05/28/17 08: 20; Start 05/23/17 at 09:00 Acetaminophen (Tylenol) 650 mg Q6H PRN PO PAIN 1-2 AND/OR FEVER >101F Last administered on 05/28/17 02:36; Start 05/22/17 at 21:15 Fentanyl Citrate (fentaNYL INJ) 50 mcg Q1H PRN IV PUSH Pain scale 6-10 &/or sedation; Start 05/22/17 at 21:15; Stop 05/25/17 at 11:49; Status DC Pantoprazole Sodium (Protonix Inj) 40 mg DAILY IV Last administered on 08:20; Start 05/23/17 at 09:00 Ondansetron HCl (Zofran Inj) 4 mg Q6H PRN IV NAUSEA OR VOMITING; Start 05/22/17 at 21:15 Albuterol Sulfate (Albuterol Neb) 2.5 mg Q2HR NEB PRN INH SOB/WHEEZING; Start 05/22/17 at 21:15 Miscellaneous Information 1 [id number] XX ; Start 05/22/17 at 21:15 Chlorhexidine Gluconate (Chlorhexidine 2% Cloth) Taper DAILY@04 TOP Last administered on 05/25/17 19:03; Start 05/23/17 at 04:00; Stop 05/19/18 at 03:59 Chlorhexidine Gluconate (Chlorhexidine 2% Cloth) 3 pack UNSCH PRN TOP HYGIENIC CARE; Start 05/22/17 at 21:15 Senna/Docusate Sodium (Kiah-Colace) 1 tab BID PO Last administered on 08:56; Start 05/23/17 at 09:00 Magnesium Hydroxide (Milk Of Magnesia Liq) 30 ml Q12H PRN PO MILD - MODERATE CONSTIPATION; Start 05/22/17 at 21:15 Sennosides (Senokot) 17.2 mg Q12H PRN PO MODERATE - SEVERE CONSTIPATION; Start 05/22/17 at 21:15 Bisacodyl (Dulcolax Supp) 10 mg DAILY PRN RECTAL SEVERE CONSITIPATION; Start at 21:15 Lactulose 30 ml 30 ml DAILY PRN PO SEVERE CONSITIPATION; Start 05/22/17 at 21:15 Propofol 100 ml @ 0 mls/hr TITRATE IV Last administered on 05/25/17 05:42; Start 05/22/17 at 21:15; Stop 05/25/17 at 11:49; Status DC Dextrose/Sodium Chloride (D5W-NS 1000 ml Inj) 1,000 ml @ 84 mls/hr [id number] IV Last administered on 05/23/17 08:14; Start 05/22/17 at 21:15; Stop 05/23/17 at 10: 27; Status DC Chlorhexidine Gluconate 15 ml 15 ml BID@08,20 MT Last administered on 7/9/17at 09:27; Start 05/23/17 at 08:00 Potassium Chloride 100 ml @ 50 mls/hr Q2H PRN IV For Potassium 2.8 - 3.2 mEq/L ; Start 05/22/17 at 21:45; Stop 05/26/17 at 13:20; Status DC Potassium Chloride (KCl 20 Meq Premix Inj) 100 ml @ 50 mls/hr Q2H PRN IV For Potassium 2.8 - 3.2 mEq/L; Start 05/22/17 at 21:45; Stop 05/26/17 at 13:20; Status DC Potassium Bicarb/ Potassium Chloride 50 meq 50 meq UNSCH PRN PO For Potassium 3.3 - 3.5 mEq/L; Start 05/22/17 at 21:45; Stop 05/26/17 at 13:20; Status DC Potassium Chloride 100 ml @ 25 mls/hr UNSCH PRN IV For Potassium 3.3 - 3.5 mEq /L; Start 05/22/17 at 21:45; Stop 05/26/17 at 13:20; Status DC Potassium Chloride 100 ml @ 50 mls/hr Q2H PRN IV For Potassium 3.3 - 3.5 mEq/L ; Start 05/22/17 at 21:45; Stop 05/26/17 at 13:20; Status DC Magnesium Sulfate/ Sodium Chloride (Magnesium Sulfate Inj/NS Inj) 100 ml @ 50 mls/hr UNSCH PRN IV For Magnesium 0.9 - 1.1 mg/dL; Start 05/22/17 at 21:45; Stop 05/26/17 at 13:21; Status DC Magnesium Oxide 800 mg 800 mg UNSCH PRN PO For Magnesium 1.2 - 1.6 mg/dL; Start 05/22/17 at 21:45; Stop 05/26/17 at 13:21; Status DC Magnesium Sulfate/ Sodium Chloride (Magnesium Sulfate Inj/NS Inj) 100 ml @ 50 mls/hr UNSCH PRN IV For Magnesium 1.2 - 1.6 mg/dL; Start 05/22/17 at 21:45; Stop 05/26/17 at 13:21; Status DC Potassium Phosphate 2000 mg 2,000 mg Q4H PRN PO For Phosphorus < 2.5 mg/dL; Start 05/22/17 at 21:45; Stop 05/26/17 at 13:21; Status DC Sodium Phosphate/ Sodium Chloride (Sodium Phosphate Inj/NS 250 ml Inj) 250 ml @ 42 mls/hr UNSCH PRN IV For Phosphorus < 2.5 mg/dL; Start 05/22/17 at 21:45; Stop 05/26/17 at 13:21; Status DC Potassium Phosphate 2000 mg 2,000 mg UNSCH PRN PO/TUBE SEE LABEL COMMENTS; Start 05/22/17 at 21:45; Stop 05/26/17 at 13:21; Status DC Potassium Phosphate/Sodium Chloride (Potassium Phosphate Inj/NS 250 ml Inj) 260 ml @ 42 mls/hr UNSCH PRN IV SEE LABEL COMMENTS; Start 05/22/17 at 21:45; Stop 05/26/17 at 13:20; Status DC Dexamethasone Sodium Phosphate (Decadron Inj) 4 mg Q6HR IV PUSH Last administered on 05/24/17 05:10; Start 05/23/17 at 12:00; Stop 05/24/17 at 11:59; Status DC Furosemide (Lasix Inj) 20 mg ONCE ONCE IV PUSH Last administered on 05/23/17 10:47; Start 05/23/17 at 10:30; Stop 05/23/17 at 11:02; Status DC Albuterol/ Ipratropium (Duoneb Neb) 1 ampule Q6HR WHILE AWAKE NEB NEB Last administered on 05/27/17 10:59; Start 05/23/17 at 14:00; Stop 05/27/17 at 14:01 ; Status DC Gadodiamide 22 ml 22 ml STK-MED ONCE IV Last administered on 05/23/17 12:32; Start 05/23/17 at 12:32; Stop 05/23/17 at 12:33; Status DC Fentanyl Citrate (fentaNYL DRIP) 250 ml @ 0 mls/hr TITRATE IV Last administered on 05/24/17 20:13; Start 05/23/17 at 20:15; Stop 05/25/17 at 11:49; Status DC Lidocaine/ Epinephrine (Xylocaine-Epi 1%-1:100,000 Inj) 30 ml STK-MED ONCE .ROUTE Last administered on 05/24/17 02:00; Start 05/24/17 at 14:10; Stop at 14:11; Status DC Furosemide (Lasix Inj) 20 mg ONCE ONCE IV PUSH Last administered on 05/24/17 18:05; Start 05/24/17 at 17:15; Stop 05/24/17 at 17:16; Status DC Diltiazem HCl (Cardizem Inj) 20 mg STAT ONCE IV Last administered on 05/25/17 08:10; Start 05/25/17 at 08:15; Stop 05/25/17 at 08:16; Status DC Diltiazem HCl (Cardizem Inj) 25 mg STK-MED ONCE .ROUTE ; Start 05/25/17 at 08:09 ; Stop 05/25/17 at 08:10; Status DC Amoxicillin/ Clavulanate Potassium (Augmentin) 875 mg Q12HR PO Last administered on 05/28/17 08:20; Start 05/25/17 at 21:00; Stop 05/30/17 at 20:59 Oxycodone HCl (Roxicodone) 5 mg Q4H PRN PO pain 1-7; Start 05/25/17 at 12:00 Hydromorphone HCl 0.5 mg 0.5 mg Q4H PRN IV PUSH pain 8-10 or not taking po Last administered on 05/26/17 16:24; Start 05/25/17 at 12:00 Sodium Chloride (NS 500 ml Inj) 500 ml @ 50 mls/hr Q10H IV Last administered on 05/25/17 14:32; Start 05/25/17 at 12:00; Stop 05/25/17 at 21:59; Status DC Metoprolol Succinate (Toprol Xl) 12.5 mg DAILY PO Last administered on 08:20; Start 05/26/17 at 09:30 Miscellaneous (Pill Splitter) 1 ea UNSCH PRN OTHER SEE LABEL COMMENTS; Start at 09:30 Enalaprilat (Vasotec Inj) 1.25 mg Q8H PRN IV PUSH SYSTOLIC BP >180 mmHg Last administered on 05/26/17 16:57; Start 05/26/17 at 16:45 A/P Assessment and Plan 81yM on chronic anticoagulation s/p mechanical fall with left neck/chest wall hematoma and airway compromise. Acute respiratory failure secondary to Large L supraclavicular hematoma (11 cm) , swelling Left posterior neck causing trachea shift and airway compromise s/p intubation/ extubation History of tobacco abuse Ankylosing spondylitis 1.17 cm right pulmonary nodule CT chest/neck 1.1 cm R pulmonary nodule, peripherally located adjacent to pleura. 2.6 cm mass in right paraspinous region, extending from subcarinal level. 11.3 cm x 7.3 cm L supraclavicular hematoma. Extends posterior to clavicle. No active extravasation. previously Discussed with Dr. Hill. Recommends repeat CT in 2-4 weeks and if these findings persist, obtain outpatient PET scan. Patient is known to Dr. Harry, pulmonary following. L supraclavicular hematoma -- s/p evacuation of hematoma 05/24 at bedside. --general surgery follow-up appreciated -consulted OT Atrial fibrillation with RVR on chronic anticoagulation with warfarin. Hypertension History of hyperlipidemia Coronary artery disease with prior stents about 12 years ago resumed metoprolol - continue to monitor and adjust the regimen as needed. Patient was no longer on statin per so removed from med rec. Hold warfarin due to hematoma. 2d echo 05/23: EF 40 - 45%, small pericardial effusion without tamponade Fall History of mild dementia CT brain - 1 cm hypodensity and right caudate and internal capsule which may represent an old infarction. MRI confirms old infarct. 05/23 PT following. GERD Recinos's esophagus continue PPI Acute kidney injury- secondary to volume restrictive strategy to minimize laryngeal edema Monitor intake and output. Monitor electrolytes. possible Aspiration blood cultures negative and sputum culture with normal respiratory jevon cultures are negative x 48h, but elevated wbc. continue po augmentin and continue x [address] chest - bilateral infiltrates posterior lower lung mcbride.(in addition to above discussed finding) consult ST Anemia Coagulopathy secondary to chronic warfarin anticoagulation on hold due to hematoma. Acute left elbow contusion XR elbow with no acute fracture. PROPH: Hold pharmacologic DVT prophylaxis due to hematoma. SCDs for DVT prophylaxis. Discharge Planning case management consulted to assist with dc planning to rehab. dc planning within the next 2-3 days if stable. left a message for (the niece); [phone]. Jose Antonio Gibbons MD May 28, 2017 10:19
[2017-05-28 10:33] LABS: AUTOMATED NEUTROPHIL # 9.8 TH/MM3 (1.8-7.7); BASOPHIL % 0.3 % (0.0-2.0); EOSINOPHIL # 0.1 TH/MM3 (0-0.4); EOSINOPHIL % 0.8 % (0.0-4.0); HEMATOCRIT 27.9 % (39.0-51.0); HEMO FLAGS DIFF FINAL; LYMPH % 8.6 % (9.0-44.0); MEAN CELL VOLUME 99.3 FL (80.0-100.0); MEAN CORPUSCULAR HEMOGLOBIN 33.9 PG (27.0-34.0); MEAN CORPUSCULAR HGB CONC 34.2 % (32.0-36.0); MONO % 5.9 % (0.0-8.0); NEUT % 84.4 % (16.0-70.0); PLATELET COUNT 166 TH/MM3 (150-450); RED BLOOD COUNT 2.81 MIL/MM3 (4.50-5.90); RED CELL DISTRIBUTION WIDTH 13.8 % (11.6-17.2); WHITE BLOOD COUNT 11.6 TH/MM3 (4.0-11.0)
[2017-05-28 11:08] LABS: BICARBONATE 26.7 MEQ/L (21.0-32.0); POTASSIUM 3.3 MEQ/L (3.5-5.1)
[2017-05-28] MEDS ORDERED: POTASSIUM CHLORIDE 10 MEQ CONTROLLED RELEASE TAB PO ONE (14:00)
--- NOTE | 2017-05-28 19:08 | HHI.PR ---
Subjective Remarks Stable and on O2 2 L. Had left Supraclavicular hematoma drained. C/O weak in left arm.Mediastinal node on CT chest . Objective Vital Signs Date Time Temp Pulse Resp B/P Pulse Ox O2 Delivery O2 Flow Rate FiO2 05/28/17 16:26 96.6 87 20 146/69 100 05/28/17 12:26 96.3 86 19 134/65 100 05/28/17 08:14 96.9 88 19 148/76 99 05/28/17 07:22 89 05/28/17 06:45 98.0 90 24 135/63 97 05/28/17 00:00 100.5 103 24 125/58 96 05/27/17 20:00 97.7 106 24 137/63 94 05/27/17 20:00 90 I/O 05/27/17 05/27/17 05/27/17 05/28/17 05/28/17 05/28/17 07:00 15:00 23:00 07:00 15:00 23:00 Intake Total 0 ml 960 ml 460 ml 240 ml Output Total 300 ml 550 ml 500 ml 250 ml 450 ml Balance -300 ml 410 ml -500 ml 210 ml -210 ml Intake Oral 0 ml 960 ml 460 ml 240 ml IV Total 0 ml Output Urine Total 300 ml 550 ml 500 ml 250 ml 450 ml # Bowel Movements 1 2 1 1 Result Diagram: 05/28/17 1008 05/28/17 1008 Objective Remarks GENERAL: This is a moderately obese elderly man who is alert . HEENT: Head is normocephalic. Pupils are reactive. NECK: Supple with mild edema. No venous distention. No thyromegaly. CHEST: Decreased excursions. Swelling of the left upper chest area and ecchymotic areas of the left chest wall. Decreased breath sounds to the left base . HEART: The heart sounds are irregularly irregular. No murmur. No S3. ABDOMEN: Soft, obese, without masses, organomegaly or tenderness. EXTREMITIES: No Edema with mild varicosities. He is weak in his left arm. NEUROLOGIC: Reflexes are 1+ . SKIN: No lesions. Assessment and Plan Assessment and Plan IMPRESSION 1. Acute respiratory failure.Resolved 2. A large left neck/supraclavicular hematoma with tracheal obstruction and deviation. 3. Radiculopathy left arm 4. Atrial fibrillation with rapid ventricular response. 5. Hypertension. 6. Ankylosing spondylitis. 7. Lung nodule 8. Obstructive sleep apnea syndrome. 9. Possible aspiration pneumonia. Plan : 1. Wean O2 to Keep sat >92 2. IS at bedside q3h 3. PT evaluation 4. Cont antibiotics and switch to PO 5. Symbicort inhaler , 2puffs bid 6. Nebs tid , duoneb. 7. CT chest Rpt in 3 weeks Jaylen Thomas MD May 28, 2017 19:08
[2017-05-29] VITALS (7 sets, daily range): BP systolic 131–157; BP diastolic 64–89; PULSE 98–120; RESP 18–20; TEMP 95.5–97.5; O2SAT 95–100
[2017-05-29] MEDS: CHLORHEXIDINE GLUCONATE 2 % 1 PACK (2 CLOTHS) TOP SCH (04:00)
[2017-05-29] MEDS: CHLORHEXIDINE 0.12% (ORAL KIT) 15 ML CUP MT SCH ×2 (08:00→11:18)
[2017-05-29] MEDS: METOPROLOL SUCCINATE 25 MG EXTENDED RELEASE TAB PO SCH (08:30)
[2017-05-29] MEDS: DOCUSATE SODIUM 50 MG/SENNA 8.6 MG TAB PO SCH ×2 (08:30→20:36)
[2017-05-29] MEDS: AMOXICILLIN/CLAVULANATE K 875 MG TAB PO SCH ×2 (08:30→20:34)
[2017-05-29] MEDS: SODIUM CHLORIDE 0.9% FLUSH 10 ML FLUSH IV FLUSH SCH ×2 (08:31→20:36)
[2017-05-29] MEDS: PANTOPRAZOLE SODIUM 40 MG VIAL IV SCH (08:31)
--- NOTE | 2017-05-29 11:23 | HHI.PR ---
Subjective Remarks f/u; hematoma in no acute distress. pleasantly confused. afebrile. still weak on the left upper extremity. at the bedside. d/w the RN. Objective Vitals Vital Signs Date Time Temp Pulse Resp B/P Pulse Ox O2 Delivery O2 Flow Rate FiO2 05/29/17 08:00 97.5 111 18 145/89 98 05/29/17 04:00 97.1 101 20 146/74 97 05/29/17 00:00 96.1 98 20 155/68 97 05/28/17 20:13 97.7 109 18 158/78 99 05/28/17 20:00 98 05/28/17 16:26 96.6 87 20 146/69 100 05/28/17 12:26 96.3 86 19 134/65 100 I/O 05/28/17 05/28/17 05/28/17 05/29/17 05/29/17 05/29/17 07:00 15:00 23:00 07:00 15:00 23:00 Intake Total 460 ml 240 ml Output Total 250 ml 1050 ml 350 ml Balance 210 ml -810 ml -350 ml Intake Oral 460 ml 240 ml Output Urine Total 250 ml 1050 ml 350 ml # Bowel Movements 1 2 Result Diagram: 05/28/17 1008 05/28/17 1008 Imaging Last Impressions Chest X-Ray 05/28/17 0600 Signed Impressions: Service Date/Time: Sunday, May 28, 2017 06:15 - CONCLUSION: Bibasilar consolidation and small left pleural effusion slightly worse. Jayce Fierro MD Elbow X-Ray 05/23/17 0129 Signed Impressions: Service Date/Time: Tuesday, May 23, 2017 04:04 - CONCLUSION: No acute fracture/effusion. Lopez Carrillo MD Brain MRI 05/23/17 0000 Signed Impressions: Service Date/Time: Tuesday, May 23, 2017 11:46 - CONCLUSION: 1. 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 2. Bilateral cortical atrophy and chronic white matter changes. Jair Brantley MD Head CT 05/22/17 4419 Signed Impressions: Service Date/Time: May 18:00 - CONCLUSION: 1 cm hypodensity in the right caudate and internal capsule may represent an old infarction. However, in the absence of prior films and with the history of recent trauma, recommend further characterization of this finding with MRI of brain with and without contrast. Matthew Hill MD Neck CT 05/22/17 0000 Signed Impressions: Service Date/Time: May 18:00 - CONCLUSION: Abnormal appearance the left supraclavicular region with greater the 11 cm mass which probably represents 3 adjacent components in contact with each other. One of the components has cystic or necrotic area. There is also a 4th opacity in the posterior lower left neck which surrounds the scapular spine and is more infiltrative in appearance. The findings are highly suspicious for malignancy. Matthew Hill MD Chest CT 05/22/17 0000 Signed Impressions: Service Date/Time: May 18:15 - CONCLUSION: Greater than 11 cm left supraclavicular mass is suspicious for malignancy. There is also a midthoracic right paraspinal mass measuring 4 cm in superior-inferior extent and an 11 mm right pulmonary nodule. Recommend PET/CT scan to evaluate metabolic behavior and to help in decision making regarding biopsy planning. Matthew Hill MD ADDENDUM: Additional history is now available; recent fall and the patient is on anticoagulation. The large mass in the left supraclavicular region has an appearance which is entirely consisted with a hematoma. The mediastinal adenopathy in the 1 cm nodule, however, are not characteristic of trauma. Recommend performing followup CT in one month specifically does the if the lung and mediastinal findings persist and if so, then consideration of PET/CT scan. Matthew Hill MD Objective Remarks GENERAL: This is a well-nourished, well-developed patient, in no apparent distress. CARDIOVASCULAR: Regular rate and regular rhythm without murmurs, gallops, or rubs. RESPIRATORY: Clear to auscultation. Breath sounds equal bilaterally. No wheezes , rales, or rhonchi. GASTROINTESTINAL: Abdomen soft, non-tender, nondistended. Normal, active bowel sounds MUSCULOSKELETAL: Extremities without clubbing, cyanosis, or edema. NEURO: mildly lethargic but easily arousable Medications and IVs Current Medications Sodium Chloride (NS Flush) 2 ml UNSCH PRN IVF FLUSH AFTER USING IV ACCESS; Start 05/22/17 at 15:30; Stop 05/22/17 at 21:19; Status DC Etomidate 40 mg 40 mg STK-MED ONCE .ROUTE ; Start 05/22/17 at 15:36; Stop at 15:37; Status DC Propofol (Diprivan 1000 Mg/100ml Inj) 100 ml @ As Directed STK-MED ONCE .ROUTE ; Start 05/22/17 at 15:45; Stop 05/22/17 at 15:46; Status DC Etomidate (Amidate Inj) 20 mg ONCE ONCE IV PUSH Last administered on 05/22/17 16:17; Start 05/22/17 at 16:00; Stop 05/22/17 at 16:01; Status DC Rocuronium [place] 50 mg 50 mg BOLUS ONCE IV Last administered on 05/22/17 16: 17; Start 05/22/17 at 16:00; Stop 05/22/17 at 16:01; Status DC Propofol (Diprivan 1000 Mg/100ml Inj) 100 ml @ 0 mls/hr TITRATE IV Last administered on 05/22/17 19:41; Start 05/22/17 at 16:00; Stop 05/22/17 at 21:19; Status DC Diltiazem HCl 20 mg 20 mg ONCE ONCE IV Last administered on 05/22/17 18:43; Start 05/22/17 at 17:30; Stop 05/22/17 at 17:31; Status DC Ceftriaxone Sodium 1000 mg/ Sodium Chloride 100 ml @ 200 mls/hr ONCE ONCE IV Last administered on 05/22/17 18:50; Start 05/22/17 at 18:00; Stop 05/22/17 at 18: 29; Status DC Azithromycin/ Sodium Chloride (Zithromax Inj/ NS 250 ml Inj) 250 ml @ 250 mls/ hr ONCE ONCE IV Last administered on 05/22/17 19:47; Start 05/22/17 at 18:00; Stop 05/22/17 at 18:59; Status DC Iohexol 60 ml 60 ml STK-MED ONCE IV Last administered on 05/22/17 18:23; Start 05/22/17 at 18:23; Stop 05/22/17 at 18:24; Status DC Phytonadione 10 mg/Sodium Chloride 51 ml @ 102 mls/hr ONCE ONCE IV ; Start 05/22/17 at 20:15; Stop 05/22/17 at 20:15; Status Cancel Azithromycin 500 mg/Sodium Chloride 250 ml @ 250 mls/hr Q24H IV Last administered on 05/23/17 20:46; Start 05/23/17 at 20:00; Stop 05/23/17 at 20:30; Status DC Ceftriaxone Sodium 1000 mg/ Sodium Chloride 100 ml @ 200 mls/hr Q12H IV ; Start 05/23/17 at 06:00; Stop 05/23/17 at 06:00; Status DC Piperacillin Sod/ Tazobactam Sod 50 ml @ 100 mls/hr Q6H IV Last administered on 05/25/17 09:25; Start 05/22/17 at 21:00; Stop 05/25/17 at 11:49; Status DC Phytonadione 10 mg/Dextrose 51 ml @ 102 mls/hr ONCE ONCE IV ; Start 05/22/17 at 20:45; Stop 05/22/17 at 21:15; Status DC Phytonadione/ Sodium Chloride (Vitamin K Inj/ NS Inj) 50.5 ml @ 102 mls/hr ONCE ONCE IV Last administered on 05/22/17 21:41; Start 05/22/17 at 21:00; Stop 05/22/17 at 21:29; Status DC Sodium Chloride (NS Flush) 2 ml UNSCH PRN IV FLUSH FLUSH AFTER USING IV ACCESS ; Start 05/22/17 at 21:15 Sodium Chloride (NS Flush) 2 ml BID IV FLUSH Last administered on 05/29/17 08: 31; Start 05/23/17 at 09:00 Acetaminophen (Tylenol) 650 mg Q6H PRN PO PAIN 1-2 AND/OR FEVER >101F Last administered on 05/28/17 02:36; Start 05/22/17 at 21:15 Fentanyl Citrate (fentaNYL INJ) 50 mcg Q1H PRN IV PUSH Pain scale 6-10 &/or sedation; Start 05/22/17 at 21:15; Stop 05/25/17 at 11:49; Status DC Pantoprazole Sodium (Protonix Inj) 40 mg DAILY IV Last administered on 08:31; Start 05/23/17 at 09:00 Ondansetron HCl (Zofran Inj) 4 mg Q6H PRN IV NAUSEA OR VOMITING; Start 05/22/17 at 21:15 Albuterol Sulfate (Albuterol Neb) 2.5 mg Q2HR NEB PRN INH SOB/WHEEZING; Start 05/22/17 at 21:15 Miscellaneous Information 1 [id number] XX ; Start 05/22/17 at 21:15 Chlorhexidine Gluconate (Chlorhexidine 2% Cloth) Taper DAILY@04 TOP Last administered on 05/25/17 19:03; Start 05/23/17 at 04:00; Stop 05/19/18 at 03:59 Chlorhexidine Gluconate (Chlorhexidine 2% Cloth) 3 pack UNSCH PRN TOP HYGIENIC CARE; Start 05/22/17 at 21:15 Senna/Docusate Sodium (Kiah-Colace) 1 tab BID PO Last administered on 08:30; Start 05/23/17 at 09:00 Magnesium Hydroxide (Milk Of Magnesia Liq) 30 ml Q12H PRN PO MILD - MODERATE CONSTIPATION; Start 05/22/17 at 21:15 Sennosides (Senokot) 17.2 mg Q12H PRN PO MODERATE - SEVERE CONSTIPATION; Start 05/22/17 at 21:15 Bisacodyl (Dulcolax Supp) 10 mg DAILY PRN RECTAL SEVERE CONSITIPATION; Start at 21:15 Lactulose 30 ml 30 ml DAILY PRN PO SEVERE CONSITIPATION; Start 05/22/17 at 21:15 Propofol 100 ml @ 0 mls/hr TITRATE IV Last administered on 05/25/17 05:42; Start 05/22/17 at 21:15; Stop 05/25/17 at 11:49; Status DC Dextrose/Sodium Chloride (D5W-NS 1000 ml Inj) 1,000 ml @ 84 mls/hr [id number] IV Last administered on 05/23/17 08:14; Start 05/22/17 at 21:15; Stop 05/23/17 at 10: 27; Status DC Chlorhexidine Gluconate 15 ml 15 ml BID@08,20 MT Last administered on 05/25/17 09:27; Start 05/23/17 at 08:00 Potassium Chloride 100 ml @ 50 mls/hr Q2H PRN IV For Potassium 2.8 - 3.2 mEq/L ; Start 05/22/17 at 21:45; Stop 05/26/17 at 13:20; Status DC Potassium Chloride (KCl 20 Meq Premix Inj) 100 ml @ 50 mls/hr Q2H PRN IV For Potassium 2.8 - 3.2 mEq/L; Start 05/22/17 at 21:45; Stop 05/26/17 at 13:20; Status DC Potassium Bicarb/ Potassium Chloride 50 meq 50 meq UNSCH PRN PO For Potassium 3.3 - 3.5 mEq/L; Start 05/22/17 at 21:45; Stop 05/26/17 at 13:20; Status DC Potassium Chloride 100 ml @ 25 mls/hr UNSCH PRN IV For Potassium 3.3 - 3.5 mEq /L; Start 05/22/17 at 21:45; Stop 05/26/17 at 13:20; Status DC Potassium Chloride 100 ml @ 50 mls/hr Q2H PRN IV For Potassium 3.3 - 3.5 mEq/L ; Start 05/22/17 at 21:45; Stop 05/26/17 at 13:20; Status DC Magnesium Sulfate/ Sodium Chloride (Magnesium Sulfate Inj/NS Inj) 100 ml @ 50 mls/hr UNSCH PRN IV For Magnesium 0.9 - 1.1 mg/dL; Start 05/22/17 at 21:45; Stop 05/26/17 at 13:21; Status DC Magnesium Oxide 800 mg 800 mg UNSCH PRN PO For Magnesium 1.2 - 1.6 mg/dL; Start 05/22/17 at 21:45; Stop 05/26/17 at 13:21; Status DC Magnesium Sulfate/ Sodium Chloride (Magnesium Sulfate Inj/NS Inj) 100 ml @ 50 mls/hr UNSCH PRN IV For Magnesium 1.2 - 1.6 mg/dL; Start 05/22/17 at 21:45; Stop 05/26/17 at 13:21; Status DC Potassium Phosphate 2000 mg 2,000 mg Q4H PRN PO For Phosphorus < 2.5 mg/dL; Start 05/22/17 at 21:45; Stop 05/26/17 at 13:21; Status DC Sodium Phosphate/ Sodium Chloride (Sodium Phosphate Inj/NS 250 ml Inj) 250 ml @ 42 mls/hr UNSCH PRN IV For Phosphorus < 2.5 mg/dL; Start 05/22/17 at 21:45; Stop 05/26/17 at 13:21; Status DC Potassium Phosphate 2000 mg 2,000 mg UNSCH PRN PO/TUBE SEE LABEL COMMENTS; Start 05/22/17 at 21:45; Stop 05/26/17 at 13:21; Status DC Potassium Phosphate/Sodium Chloride (Potassium Phosphate Inj/NS 250 ml Inj) 260 ml @ 42 mls/hr UNSCH PRN IV SEE LABEL COMMENTS; Start 05/22/17 at 21:45; Stop 05/26/17 at 13:20; Status DC Dexamethasone Sodium Phosphate (Decadron Inj) 4 mg Q6HR IV PUSH Last administered on 05/24/17 05:10; Start 05/23/17 at 12:00; Stop 05/24/17 at 11:59; Status DC Furosemide (Lasix Inj) 20 mg ONCE ONCE IV PUSH Last administered on 05/23/17 10:47; Start 05/23/17 at 10:30; Stop 05/23/17 at 11:02; Status DC Albuterol/ Ipratropium (Duoneb Neb) 1 ampule Q6HR WHILE AWAKE NEB NEB Last administered on 05/27/17 10:59; Start 05/23/17 at 14:00; Stop 05/27/17 at 14:01 ; Status DC Gadodiamide 22 ml 22 ml STK-MED ONCE IV Last administered on 05/23/17 12:32; Start 05/23/17 at 12:32; Stop 05/23/17 at 12:33; Status DC Fentanyl Citrate (fentaNYL DRIP) 250 ml @ 0 mls/hr TITRATE IV Last administered on 05/24/17 20:13; Start 05/23/17 at 20:15; Stop 05/25/17 at 11:49; Status DC Lidocaine/ Epinephrine (Xylocaine-Epi 1%-1:100,000 Inj) 30 ml STK-MED ONCE .ROUTE Last administered on 05/24/17 02:00; Start 05/24/17 at 14:10; Stop at 14:11; Status DC Furosemide (Lasix Inj) 20 mg ONCE ONCE IV PUSH Last administered on 05/24/17 18:05; Start 05/24/17 at 17:15; Stop 05/24/17 at 17:16; Status DC Diltiazem HCl (Cardizem Inj) 20 mg STAT ONCE IV Last administered on 05/25/17 08:10; Start 05/25/17 at 08:15; Stop 05/25/17 at 08:16; Status DC Diltiazem HCl (Cardizem Inj) 25 mg STK-MED ONCE .ROUTE ; Start 05/25/17 at 08:09 ; Stop 05/25/17 at 08:10; Status DC Amoxicillin/ Clavulanate Potassium (Augmentin) 875 mg Q12HR PO Last administered on 05/29/17 08:30; Start 05/25/17 at 21:00; Stop 05/30/17 at 20:59 Oxycodone HCl (Roxicodone) 5 mg Q4H PRN PO pain 1-7; Start 05/25/17 at 12:00 Hydromorphone HCl 0.5 mg 0.5 mg Q4H PRN IV PUSH pain 8-10 or not taking po Last administered on 05/26/17 16:24; Start 05/25/17 at 12:00 Sodium Chloride (NS 500 ml Inj) 500 ml @ 50 mls/hr Q10H IV Last administered on 05/25/17 14:32; Start 05/25/17 at 12:00; Stop 05/25/17 at 21:59; Status DC Metoprolol Succinate (Toprol Xl) 12.5 mg DAILY PO Last administered on 08:30; Start 05/26/17 at 09:30 Miscellaneous (Pill Splitter) 1 ea UNSCH PRN OTHER SEE LABEL COMMENTS; Start at 09:30 Enalaprilat (Vasotec Inj) 1.25 mg Q8H PRN IV PUSH SYSTOLIC BP >180 mmHg Last administered on 05/26/17 16:57; Start 05/26/17 at 16:45 Potassium Chloride (KCl) 40 meq ONCE ONCE PO Last administered on 05/28/17 15 :20; Start 05/28/17 at 14:00; Stop 05/28/17 at 14:01; Status DC A/P Assessment and Plan 81yM on chronic anticoagulation s/p mechanical fall with left neck/chest wall hematoma and airway compromise. Acute respiratory failure secondary to Large L supraclavicular hematoma (11 cm) , swelling Left posterior neck causing trachea shift and airway compromise s/p intubation/ extubation History of tobacco abuse Ankylosing spondylitis 1.17 cm right pulmonary nodule CT chest/neck 1.1 cm R pulmonary nodule, peripherally located adjacent to pleura. 2.6 cm mass in right paraspinous region, extending from subcarinal level. 11.3 cm x 7.3 cm L supraclavicular hematoma. Extends posterior to clavicle. No active extravasation. previously Discussed with Dr. Hill. Recommends repeat CT in 2-4 weeks and if these findings persist, obtain outpatient PET scan. Patient is known to Dr. Harry, pulmonary following. L supraclavicular hematoma -- s/p evacuation of hematoma 05/24 at bedside. --general surgery follow-up appreciated -consulted OT left upper extremity weakness will consult neurology continue OT Atrial fibrillation with RVR on chronic anticoagulation with warfarin. Hypertension History of hyperlipidemia Coronary artery disease with prior stents about 12 years ago resumed metoprolol - continue to monitor and adjust the regimen as needed. Patient was no longer on statin per so removed from med rec. Hold warfarin due to hematoma. 2d echo 05/23: EF 40 - 45%, small pericardial effusion without tamponade Fall History of mild dementia CT brain - 1 cm hypodensity and right caudate and internal capsule which may represent an old infarction. MRI confirms old infarct. 05/23 PT following. GERD Recinos's esophagus continue PPI Acute kidney injury- secondary to volume restrictive strategy to minimize laryngeal edema Monitor intake and output. Monitor electrolytes. possible Aspiration blood cultures negative and sputum culture with normal respiratory jevon cultures are negative x 48h, but elevated wbc. continue po augmentin and continue x [address] chest - bilateral infiltrates posterior lower lung mcbride.(in addition to above discussed finding) consulted ST Anemia Coagulopathy secondary to chronic warfarin anticoagulation on hold due to hematoma. Acute left elbow contusion XR elbow with no acute fracture. PROPH: Hold pharmacologic DVT prophylaxis due to hematoma. SCDs for DVT prophylaxis. remove vickers cath today; with voiding trial. Discharge Planning dc planning to [place] within the next couple of days- if stable-pending neurology evaluation. d/w the case management. Jose Antonio Gibbons MD May 29, 2017 11:23
[2017-05-29 17:13] LABS: BACTERIA, URINE RARE /hpf; BLOOD, URINE MOD (NEG); COMMENT (UR) CULTURE INDICATED; CULTURE IF INDICATED CULTURE INDICATED; GLUCOSE,URINE NEG (NEG); KETONE, URINE NEG (NEG); MUCUS URINE FEW /lpf (OCC); NITRITE,URINE NEG (NEG); SQUAMOUS EPITHELIAL CELL URINE 1 /hpf (0-5); URINE COLOR YELLOW (YELLW/STRAW)
--- NOTE | 2017-05-29 18:29 | HHI.PR ---
Subjective Remarks Stable and on O2 2 L. Overall improving and arm weakness resolving. .Mediastinal node on CT chest . Objective Vital Signs Date Time Temp Pulse Resp B/P Pulse Ox O2 Delivery O2 Flow Rate FiO2 05/29/17 16:12 95.5 106 18 131/64 99 05/29/17 12:14 95.8 101 18 133/77 100 05/29/17 11:25 120 05/29/17 08:00 97.5 111 18 145/89 98 05/29/17 04:00 97.1 101 20 146/74 97 05/29/17 00:00 96.1 98 20 155/68 97 05/28/17 20:13 97.7 109 18 158/78 99 05/28/17 20:00 98 I/O 05/28/17 05/28/17 05/28/17 05/29/17 05/29/17 05/29/17 07:00 15:00 23:00 07:00 15:00 23:00 Intake Total 460 ml 240 ml 360 ml Output Total 250 ml 1050 ml 350 ml 600 ml 100 ml Balance 210 ml -810 ml -350 ml -240 ml -100 ml Intake Oral 460 ml 240 ml 360 ml Output Urine Total 250 ml 1050 ml 350 ml 600 ml 100 ml # Bowel Movements 1 2 3 Result Diagram: 05/28/17 1008 05/28/17 1008 Objective Remarks GENERAL: This is a moderately obese elderly man who is alert . HEENT: Head is normocephalic. Pupils are reactive. NECK: Supple with mild edema. No venous distention. No thyromegaly. CHEST: Decreased excursions.has ecchymotic areas of the left chest wall. Decreased breath sounds to the left base . HEART: The heart sounds are irregularly irregular. No murmur. No S3. ABDOMEN: Soft, obese, without masses, organomegaly or tenderness. EXTREMITIES: No Edema with mild varicosities. He is weak in his left arm. NEUROLOGIC: Reflexes are 1+ . SKIN: No lesions. Assessment and Plan Assessment and Plan IMPRESSION 1. Acute respiratory failure.Resolved 2. A large left neck/supraclavicular hematoma with tracheal obstruction and deviation. 3. Radiculopathy left arm 4. Atrial fibrillation with rapid ventricular response. 5. Hypertension. 6. Ankylosing spondylitis. 7. Lung nodule 8. Obstructive sleep apnea syndrome. 9. Possible aspiration pneumonia. Plan : 1. Wean O2 to Keep sat >92 2. IS at bedside q3h 3. PT evaluation 4. Cont antibiotics till am. 5. Symbicort inhaler , 2puffs bid 6. Nebs tid , duoneb. 7. CT chest Rpt in 3 weeks Jaylen Thomas MD May 29, 2017 18:29
[2017-05-29] MEDS ORDERED: HALOPERIDOL LACTATE 5 MG/ML AMP IV PUSH ONE (19:45)
[2017-05-30] VITALS (8 sets, daily range): BP systolic 118–161; BP diastolic 57–91; PULSE 92–108; RESP 16–20; TEMP 95.6–99.2; O2SAT 94–98
--- NOTE | 2017-05-30 00:18 | MB ---
cc: AYANNA,HAWA DATE OF CONSULTATION 05/29/17 REASON FOR CONSULTATION Left upper extremity weakness/confusion. HISTORY OF PRESENT ILLNESS Mr. Romano is an 81-year-old male with past medical history of hypertension, atrial fibrillation with RVR, on chronic anticoagulation with warfarin, coronary artery disease status post stent, ankylosing spondylitis, reported a fall on 05/20/17 when he got up to go to the bathroom. He developed bruising on his left shoulder when he hit the doorway. Denies loss of consciousness. Initially he was able to move his shoulder so they did not seek medical advise. The next day his supraclavicular region was swollen then he complained of difficulty breathing and swallowing. On the flight returning home his noted his voice was changing. Upon arrival to [facility] Room he was noted to have stridor, enlargement of the supraclavicular region, swelling in the left side of the neck. He was intubated and he was also in a-fib at that time with RVR at 150s. Neurology is consulted for evaluation of left upper extremity weakness. REVIEW OF SYSTEMS A 12-point review of systems is negative except for what is stated in the HPI. PAST MEDICAL HISTORY Hypertension, atrial fibrillation on chronic anticoagulation warfarin, hyperlipidemia, coronary artery disease status post stent, ankylosing spondylitis, seasonal allergies. Sleep apnea, noncompliant with C-PAP. Peripheral artery disease, recurrent UTI, reactive airway disease, vitamin D deficiency, basal cell carcinoma. Gastroesophageal reflux disease, Recinos's esophagus, mild dementia, iron, the patient has anemia. PAST SURGICAL HISTORY EGD Recinos's esophagus, cholecystectomy. Lumbar diskectomy 25 years ago. Eye procedure, basal cell carcinoma resected, TURP. MEDICATIONS 1. Warfarin. 2. Metoprolol. 3. Vitamin D. 4. Vitamin C. 5. CoQ10. FAMILY HISTORY Father of liver cancer. Mother lived till age of 93. Sister breast cancer, sister lung cancer. SOCIAL HISTORY Quit smoking 35. Occasional ethanol. Used to drink daily. No illicit drug abuse. Uses a cane and a walker for walking. PHYSICAL EXAMINATION GENERAL: Elderly male who is in mild distress. HEENT: Atraumatic, normocephalic. Intact hearing and vision. NECK: Swollen, ecchymotic left side of the neck and upper chest wall. CARDIOVASCULAR: irregularly irregular rate. LUNGS: Respirations clear to auscultation. No wheezes. GASTROINTESTINAL: Soft abdomen, nontender. MUSCULOSKELETAL: He moves extremities other than the left upper extremity with swelling at the elbow. NEUROLOGIC: Awake, alert, oriented to person and place. No dysarthria. No dysphasia. Cranial nerves II through XII are grossly intact. Motor exam right side and left lower extremity are 5/5. No abnormal movement. Left upper extremity with 2/5 shoulder abduction, 3/5 elbow extension, 2/5 wrist extension, 1/5 finger flexion, absent to sluggish reflexes throughout the left upper extremity intact in the other extremities. PSYCHOLOGICAL: Normal mood and behavior. LABORATORY DATA White blood cells 11.6, hemoglobin 9.6, platelet 166, sodium 142, potassium 3.3, creatinine 35, BUN 7, calcium 8.3. IMAGING STUDIES - Head CT scan without contrast with a 1 cm hypodensity in the right caudate and internal capsule may represent an old infarction. - Brain MRI with and without contrast revealed focal old infarct in the right basal ganglia, bilateral cortical atrophy and chronic white matter changes. DIAGNOSTIC IMPRESSION 1. Left upper extremity weakness/brachial plexopathy/status post trauma due to enlarged left neck hematoma with pressure. 2. Acute respiratory failure. 3. Atrial fibrillation with RVR. 4. Hypertension. 5. Ankylosing spondylitis. PLAN 1. Neuro checks q. four hourly. 2. Elevation of the left upper extremity. 3. PT/OT recommendations. 4. Brachial plexus imaging. 5. DVT prophylaxis. Thank you for the opportunity to participate in the care of your patient. Hawa Edwards MD RGO/JANNETTE /10:49 PM /11:48 PM DINORAH
[2017-05-30] MEDS: CHLORHEXIDINE GLUCONATE 2 % 1 PACK (2 CLOTHS) TOP SCH (00:49)
--- NOTE | 2017-05-30 07:13 | RADRPT ---
EXAM DATE/TIME: 05/30/2017 06:34 [facility] COMPARISON: CHEST SINGLE AP, May 28, 2017, 6:15. INDICATIONS : Coughing, short of breath, evaluate infiltrate MEDICAL HISTORY : Cardiovascular disease. A-fib, dementia SURGICAL HISTORY : Coronary artery stent. ENCOUNTER: Subsequent ACUITY: 1 week PAIN SCORE: 0/10 LOCATION: Bilateral chest FINDINGS: A single AP erect portable view of the chest was obtained. There is mild motion artifact. Hazy opacit y remains at the lung bases left greater than right with obscuration left hemidiaphragm and blunting of left costophrenic angle. Heart size is mildly prominent. The bony thorax is intact with mild scoli osis and degenerative changes in the thoracic spine. The overlying electrocardiogram leads. CONCLUSION: 1. Study is degraded by motion artifact. 2. Abnormal opacity remains at the lung bases left greater than right as well as probable small left effusion. Natan áMrquez MD on May 30, 2017 at 7:10 Board Certified Radiologist. This report was verified electronically.
[2017-05-30] MEDS: PANTOPRAZOLE SODIUM 40 MG VIAL IV SCH (09:06)
[2017-05-30] MEDS: AMOXICILLIN/CLAVULANATE K 875 MG TAB PO SCH (09:07)
[2017-05-30] MEDS: SODIUM CHLORIDE 0.9% FLUSH 10 ML FLUSH IV FLUSH SCH ×2 (09:07→21:11)
[2017-05-30] MEDS: METOPROLOL SUCCINATE 25 MG EXTENDED RELEASE TAB PO SCH (09:07)
[2017-05-30] MEDS: DOCUSATE SODIUM 50 MG/SENNA 8.6 MG TAB PO SCH ×2 (09:07→21:11)
[2017-05-30] MEDS ORDERED: METOPROLOL SUCCINATE 25 MG EXTENDED RELEASE TAB PO ONE (12:00)
--- NOTE | 2017-05-30 12:00 | HHI.PR ---
Subjective Remarks in no acute distress. looks somewhat better today. slightly stronger on the left upper extremity. afebrile. at the bedside. d/w the RN and no acute issues over night. Objective Vitals Vital Signs Date Time Temp Pulse Resp B/P Pulse Ox O2 Delivery O2 Flow Rate FiO2 05/30/17 10:17 102 05/30/17 09:22 94 Nasal Cannula 2.00 05/30/17 08:00 95.6 108 16 139/91 98 05/30/17 04:00 95.8 92 18 118/72 98 05/30/17 04:00 99.2 108 18 161/79 98 05/30/17 00:00 99.0 106 18 154/88 97 05/29/17 20:00 100 05/29/17 20:00 Nasal Cannula 3.00 Humidified 05/29/17 20:00 96.3 118 18 157/86 95 05/29/17 16:12 95.5 106 18 131/64 99 05/29/17 12:14 95.8 101 18 133/77 100 I/O 05/29/17 05/29/17 05/29/17 05/30/17 05/30/17 05/30/17 07:00 15:00 23:00 07:00 15:00 23:00 Intake Total 360 ml 0 ml Output Total 350 ml 600 ml 450 ml 475 ml Balance -350 ml -240 ml -450 ml 0 ml -475 ml Intake Oral 360 ml IV Total 0 ml Output Urine Total 350 ml 600 ml 450 ml 475 ml # Bowel Movements 3 Result Diagram: 05/28/17 1008 05/28/17 1008 Imaging Last Impressions Chest X-Ray 05/30/17 0600 Signed Impressions: Service Date/Time: Tuesday, May 30, 2017 06:34 - CONCLUSION: 1. Study is degraded by motion artifact. 2. Abnormal opacity remains at the lung bases left greater than right as well as probable small left effusion. Natan Márquez MD Elbow X-Ray 05/23/17 0129 Signed Impressions: Service Date/Time: Tuesday, May 23, 2017 04:04 - CONCLUSION: No acute fracture/effusion. Lopez Carrillo MD Brain MRI 05/23/17 0000 Signed Impressions: Service Date/Time: Tuesday, May 23, 2017 11:46 - CONCLUSION: 1. 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 2. Bilateral cortical atrophy and chronic white matter changes. Jair Brantley MD Head CT 05/22/17 1739 Signed Impressions: Service Date/Time: May 18:00 - CONCLUSION: 1 cm hypodensity in the right caudate and internal capsule may represent an old infarction. However, in the absence of prior films and with the history of recent trauma, recommend further characterization of this finding with MRI of brain with and without contrast. Matthew Hill MD Neck CT 05/22/17 0000 Signed Impressions: Service Date/Time: , May 22, 2017 18:00 - CONCLUSION: Abnormal appearance the left supraclavicular region with greater the 11 cm mass which probably represents 3 adjacent components in contact with each other. One of the components has cystic or necrotic area. There is also a 4th opacity in the posterior lower left neck which surrounds the scapular spine and is more infiltrative in appearance. The findings are highly suspicious for malignancy. Matthew Hill MD Chest CT 05/22/17 0000 Signed Impressions: Service Date/Time: May 18:15 - CONCLUSION: Greater than 11 cm left supraclavicular mass is suspicious for malignancy. There is also a midthoracic right paraspinal mass measuring 4 cm in superior-inferior extent and an 11 mm right pulmonary nodule. Recommend PET/CT scan to evaluate metabolic behavior and to help in decision making regarding biopsy planning. Matthew Hill MD ADDENDUM: Additional history is now available; recent fall and the patient is on anticoagulation. The large mass in the left supraclavicular region has an appearance which is entirely consisted with a hematoma. The mediastinal adenopathy in the 1 cm nodule, however, are not characteristic of trauma. Recommend performing followup CT in one month specifically does the if the lung and mediastinal findings persist and if so, then consideration of PET/CT scan. Matthew Hill MD Objective Remarks GENERAL: This is a well-nourished, well-developed patient, in no apparent distress. CARDIOVASCULAR: Regular rate and regular rhythm without murmurs, gallops, or rubs. RESPIRATORY: Clear to auscultation. Breath sounds equal bilaterally. No wheezes , rales, or rhonchi. GASTROINTESTINAL: Abdomen soft, non-tender, nondistended. Normal, active bowel sounds MUSCULOSKELETAL: Extremities without clubbing, cyanosis, or edema. NEURO: mildly lethargic but easily arousable Procedures evacuation of hematoma Medications and IVs Current Medications Sodium Chloride (NS Flush) 2 ml UNSCH PRN IVF FLUSH AFTER USING IV ACCESS; Start 05/22/17 at 15:30; Stop 05/22/17 at 21:19; Status DC Etomidate 40 mg 40 mg STK-MED ONCE .ROUTE ; Start 05/22/17 at 15:36; Stop at 15:37; Status DC Propofol (Diprivan 1000 Mg/100ml Inj) 100 ml @ As Directed STK-MED ONCE .ROUTE ; Start 05/22/17 at 15:45; Stop 05/22/17 at 15:46; Status DC Etomidate (Amidate Inj) 20 mg ONCE ONCE IV PUSH Last administered on 05/22/17 16:17; Start 05/22/17 at 16:00; Stop 05/22/17 at 16:01; Status DC Rocuronium [place] 50 mg 50 mg BOLUS ONCE IV Last administered on 05/22/17 16: 17; Start 05/22/17 at 16:00; Stop 05/22/17 at 16:01; Status DC Propofol (Diprivan 1000 Mg/100ml Inj) 100 ml @ 0 mls/hr TITRATE IV Last administered on 05/22/17 19:41; Start 05/22/17 at 16:00; Stop 05/22/17 at 21:19; Status DC Diltiazem HCl 20 mg 20 mg ONCE ONCE IV Last administered on 05/22/17 18:43; Start 05/22/17 at 17:30; Stop 05/22/17 at 17:31; Status DC Ceftriaxone Sodium 1000 mg/ Sodium Chloride 100 ml @ 200 mls/hr ONCE ONCE IV Last administered on 05/22/17 18:50; Start 05/22/17 at 18:00; Stop 05/22/17 at 18: 29; Status DC Azithromycin/ Sodium Chloride (Zithromax Inj/ NS 250 ml Inj) 250 ml @ 250 mls/ hr ONCE ONCE IV Last administered on 05/22/17 19:47; Start 05/22/17 at 18:00; Stop 05/22/17 at 18:59; Status DC Iohexol 60 ml 60 ml STK-MED ONCE IV Last administered on 05/22/17 18:23; Start 05/22/17 at 18:23; Stop 05/22/17 at 18:24; Status DC Phytonadione 10 mg/Sodium Chloride 51 ml @ 102 mls/hr ONCE ONCE IV ; Start 05/22/17 at 20:15; Stop 05/22/17 at 20:15; Status Cancel Azithromycin 500 mg/Sodium Chloride 250 ml @ 250 mls/hr Q24H IV Last administered on 05/23/17 20:46; Start 05/23/17 at 20:00; Stop 05/23/17 at 20:30; Status DC Ceftriaxone Sodium 1000 mg/ Sodium Chloride 100 ml @ 200 mls/hr Q12H IV ; Start 05/23/17 at 06:00; Stop 05/23/17 at 06:00; Status DC Piperacillin Sod/ Tazobactam Sod 50 ml @ 100 mls/hr Q6H IV Last administered on 05/25/17 09:25; Start 05/22/17 at 21:00; Stop 05/25/17 at 11:49; Status DC Phytonadione 10 mg/Dextrose 51 ml @ 102 mls/hr ONCE ONCE IV ; Start 05/22/17 at 20:45; Stop 05/22/17 at 21:15; Status DC Phytonadione/ Sodium Chloride (Vitamin K Inj/ NS Inj) 50.5 ml @ 102 mls/hr ONCE ONCE IV Last administered on 05/22/17 21:41; Start 05/22/17 at 21:00; Stop 05/22/17 at 21:29; Status DC Sodium Chloride (NS Flush) 2 ml UNSCH PRN IV FLUSH FLUSH AFTER USING IV ACCESS ; Start 05/22/17 at 21:15 Sodium Chloride (NS Flush) 2 ml BID IV FLUSH Last administered on 05/30/17 09: 07; Start 05/23/17 at 09:00 Acetaminophen (Tylenol) 650 mg Q6H PRN PO PAIN 1-2 AND/OR FEVER >101F Last administered on 05/28/17 02:36; Start 05/22/17 at 21:15 Fentanyl Citrate (fentaNYL INJ) 50 mcg Q1H PRN IV PUSH Pain scale 6-10 &/or sedation; Start 05/22/17 at 21:15; Stop 05/25/17 at 11:49; Status DC Pantoprazole Sodium (Protonix Inj) 40 mg DAILY IV Last administered on 09:06; Start 05/23/17 at 09:00 Ondansetron HCl (Zofran Inj) 4 mg Q6H PRN IV NAUSEA OR VOMITING; Start 05/22/17 at 21:15 Albuterol Sulfate (Albuterol Neb) 2.5 mg Q2HR NEB PRN INH SOB/WHEEZING; Start 05/22/17 at 21:15 Miscellaneous Information 1 [id number] ; Start 05/22/17 at 21:15 Chlorhexidine Gluconate (Chlorhexidine 2% Cloth) Taper DAILY@04 TOP Last administered on 05/25/17 19:03; Start 05/23/17 at 04:00; Stop 05/19/18 at 03:59 Chlorhexidine Gluconate (Chlorhexidine 2% Cloth) 3 pack UNSCH PRN TOP HYGIENIC CARE; Start 05/22/17 at 21:15; Stop 05/29/17 at 11:20; Status DC Senna/Docusate Sodium (Kiah-Colace) 1 tab BID PO Last administered on 09:07; Start 05/23/17 at 09:00 Magnesium Hydroxide (Milk Of Magnesia Liq) 30 ml Q12H PRN PO MILD - MODERATE CONSTIPATION; Start 05/22/17 at 21:15 Sennosides (Senokot) 17.2 mg Q12H PRN PO MODERATE - SEVERE CONSTIPATION; Start 05/22/17 at 21:15 Bisacodyl (Dulcolax Supp) 10 mg DAILY PRN RECTAL SEVERE CONSITIPATION; Start at 21:15 Lactulose 30 ml 30 ml DAILY PRN PO SEVERE CONSITIPATION; Start 05/22/17 at 21:15 Propofol 100 ml @ 0 mls/hr TITRATE IV Last administered on 05/25/17 05:42; Start 05/22/17 at 21:15; Stop 05/25/17 at 11:49; Status DC Dextrose/Sodium Chloride (D5W-NS 1000 ml Inj) 1,000 ml @ 84 mls/hr [id number] IV Last administered on 05/23/17 08:14; Start 05/22/17 at 21:15; Stop 05/23/17 at 10: 27; Status DC Chlorhexidine Gluconate 15 ml 15 ml BID@08,20 MT Last administered on 05/25/17 09:27; Start 05/23/17 at 08:00; Stop 05/29/17 at 11:20; Status DC Potassium Chloride 100 ml @ 50 mls/hr Q2H PRN IV For Potassium 2.8 - 3.2 mEq/L ; Start 05/22/17 at 21:45; Stop 05/26/17 at 13:20; Status DC Potassium Chloride (KCl 20 Meq Premix Inj) 100 ml @ 50 mls/hr Q2H PRN IV For Potassium 2.8 - 3.2 mEq/L; Start 05/22/17 at 21:45; Stop 05/26/17 at 13:20; Status DC Potassium Bicarb/ Potassium Chloride 50 meq 50 meq UNSCH PRN PO For Potassium 3.3 - 3.5 mEq/L; Start 05/22/17 at 21:45; Stop 05/26/17 at 13:20; Status DC Potassium Chloride 100 ml @ 25 mls/hr UNSCH PRN IV For Potassium 3.3 - 3.5 mEq /L; Start 05/22/17 at 21:45; Stop 05/26/17 at 13:20; Status DC Potassium Chloride 100 ml @ 50 mls/hr Q2H PRN IV For Potassium 3.3 - 3.5 mEq/L ; Start 05/22/17 at 21:45; Stop 05/26/17 at 13:20; Status DC Magnesium Sulfate/ Sodium Chloride (Magnesium Sulfate Inj/NS Inj) 100 ml @ 50 mls/hr UNSCH PRN IV For Magnesium 0.9 - 1.1 mg/dL; Start 05/22/17 at 21:45; Stop 05/26/17 at 13:21; Status DC Magnesium Oxide 800 mg 800 mg UNSCH PRN PO For Magnesium 1.2 - 1.6 mg/dL; Start 05/22/17 at 21:45; Stop 05/26/17 at 13:21; Status DC Magnesium Sulfate/ Sodium Chloride (Magnesium Sulfate Inj/NS Inj) 100 ml @ 50 mls/hr UNSCH PRN IV For Magnesium 1.2 - 1.6 mg/dL; Start 05/22/17 at 21:45; Stop 05/26/17 at 13:21; Status DC Potassium Phosphate 2000 mg 2,000 mg Q4H PRN PO For Phosphorus < 2.5 mg/dL; Start 05/22/17 at 21:45; Stop 05/26/17 at 13:21; Status DC Sodium Phosphate/ Sodium Chloride (Sodium Phosphate Inj/NS 250 ml Inj) 250 ml @ 42 mls/hr UNSCH PRN IV For Phosphorus < 2.5 mg/dL; Start 05/22/17 at 21:45; Stop 05/26/17 at 13:21; Status DC Potassium Phosphate 2000 mg 2,000 mg UNSCH PRN PO/TUBE SEE LABEL COMMENTS; Start 05/22/17 at 21:45; Stop 05/26/17 at 13:21; Status DC Potassium Phosphate/Sodium Chloride (Potassium Phosphate Inj/NS 250 ml Inj) 260 ml @ 42 mls/hr UNSCH PRN IV SEE LABEL COMMENTS; Start 05/22/17 at 21:45; Stop 05/26/17 at 13:20; Status DC Dexamethasone Sodium Phosphate (Decadron Inj) 4 mg Q6HR IV PUSH Last administered on 05/24/17 05:10; Start 05/23/17 at 12:00; Stop 05/24/17 at 11:59; Status DC Furosemide (Lasix Inj) 20 mg ONCE ONCE IV PUSH Last administered on 05/23/17 10:47; Start 05/23/17 at 10:30; Stop 05/23/17 at 11:02; Status DC Albuterol/ Ipratropium (Duoneb Neb) 1 ampule Q6HR WHILE AWAKE NEB NEB Last administered on 05/27/17 10:59; Start 05/23/17 at 14:00; Stop 05/27/17 at 14:01 ; Status DC Gadodiamide 22 ml 22 ml STK-MED ONCE IV Last administered on 05/23/17 12:32; Start 05/23/17 at 12:32; Stop 05/23/17 at 12:33; Status DC Fentanyl Citrate (fentaNYL DRIP) 250 ml @ 0 mls/hr TITRATE IV Last administered on 05/24/17 20:13; Start 05/23/17 at 20:15; Stop 05/25/17 at 11:49; Status DC Lidocaine/ Epinephrine (Xylocaine-Epi 1%-1:100,000 Inj) 30 ml STK-MED ONCE .ROUTE Last administered on 05/24/17 02:00; Start 05/24/17 at 14:10; Stop at 14:11; Status DC Furosemide (Lasix Inj) 20 mg ONCE ONCE IV PUSH Last administered on 05/24/17 18:05; Start 05/24/17 at 17:15; Stop 05/24/17 at 17:16; Status DC Diltiazem HCl (Cardizem Inj) 20 mg STAT ONCE IV Last administered on 05/25/17 08:10; Start 05/25/17 at 08:15; Stop 05/25/17 at 08:16; Status DC Diltiazem HCl (Cardizem Inj) 25 mg STK-MED ONCE .ROUTE ; Start 05/25/17 at 08:09 ; Stop 05/25/17 at 08:10; Status DC Amoxicillin/ Clavulanate Potassium (Augmentin) 875 mg Q12HR PO Last administered on 05/30/17 09:07; Start 05/25/17 at 21:00; Stop 05/30/17 at 20:59 Oxycodone HCl (Roxicodone) 5 mg Q4H PRN PO pain 1-7 Last administered on 11:13; Start 05/25/17 at 12:00 Hydromorphone HCl 0.5 mg 0.5 mg Q4H PRN IV PUSH pain 8-10 or not taking po Last administered on 05/26/17 16:24; Start 05/25/17 at 12:00 Sodium Chloride (NS 500 ml Inj) 500 ml @ 50 mls/hr Q10H IV Last administered on 05/25/17 14:32; Start 05/25/17 at 12:00; Stop 05/25/17 at 21:59; Status DC Metoprolol Succinate (Toprol Xl) 12.5 mg DAILY PO Last administered on 09:07; Start 05/26/17 at 09:30 Miscellaneous (Pill Splitter) 1 ea UNSCH PRN OTHER SEE LABEL COMMENTS; Start at 09:30 Enalaprilat (Vasotec Inj) 1.25 mg Q8H PRN IV PUSH SYSTOLIC BP >180 mmHg Last administered on 05/26/17 16:57; Start 05/26/17 at 16:45 Potassium Chloride (KCl) 40 meq ONCE ONCE PO Last administered on 05/28/17 15 :20; Start 05/28/17 at 14:00; Stop 05/28/17 at 14:01; Status DC Haloperidol Lactate (Haldol Inj) 2 mg ONCE ONCE IV PUSH Last administered on 21:07; Start 05/29/17 at 19:45; Stop 05/29/17 at 21:04; Status DC A/P Assessment and Plan 81yM on chronic anticoagulation s/p mechanical fall with left neck/chest wall hematoma and airway compromise. Acute respiratory failure secondary to Large L supraclavicular hematoma (11 cm) , swelling Left posterior neck causing trachea shift and airway compromise s/p intubation/ extubation History of tobacco abuse Ankylosing spondylitis 1.17 cm right pulmonary nodule CT chest/neck 1.1 cm R pulmonary nodule, peripherally located adjacent to pleura. 2.6 cm mass in right paraspinous region, extending from subcarinal level. 11.3 cm x 7.3 cm L supraclavicular hematoma. Extends posterior to clavicle. No active extravasation. previously Discussed with Dr. Hill. Recommends repeat CT in 2-4 weeks and if these findings persist, obtain outpatient PET scan. Patient is known to Dr. Harry, pulmonary following. L supraclavicular hematoma -- s/p evacuation of hematoma 05/24 at bedside. --general surgery follow-up appreciated -consulted OT left upper extremity weakness neurology consult appreciated continue OT Atrial fibrillation with RVR on chronic anticoagulation with warfarin. Hypertension History of hyperlipidemia Coronary artery disease with prior stents about 12 years ago resumed metoprolol - continue to monitor and adjust the regimen as needed. Patient was no longer on statin per so removed from med rec. Hold warfarin due to hematoma. 2d echo 05/23: EF 40 - 45%, small pericardial effusion without tamponade Fall History of mild dementia CT brain - 1 cm hypodensity and right caudate and internal capsule which may represent an old infarction. MRI confirms old infarct. 05/23 PT following. GERD Recinos's esophagus continue PPI Acute kidney injury- secondary to volume restrictive strategy to minimize laryngeal edema Monitor intake and output. Monitor electrolytes. possible Aspiration blood cultures negative and sputum culture with normal respiratory jevon cultures are negative x 48h, but elevated wbc. continue po augmentin and continue x [address] chest - bilateral infiltrates posterior lower lung mcbride.(in addition to above discussed finding) consulted ST Anemia Coagulopathy secondary to chronic warfarin anticoagulation on hold due to hematoma. possible UTI continue antibiotic and follow the culture Acute left elbow contusion XR elbow with no acute fracture. PROPH: Hold pharmacologic DVT prophylaxis due to hematoma. SCDs for DVT prophylaxis. Discharge Planning dc planning to [place] tomorrow- if stable- d/w the patient's and RN. Jose Antonio Gibbons MD May 30, 2017 12:00
[2017-05-30] MEDS ORDERED: OXYC-392 PO (15:13)
[2017-05-30] MEDS ORDERED: METO50TA11 PO (15:13)
--- NOTE | 2017-05-30 15:14 | HHI.DCPOC ---
Discharge Care Plan Diagnosis: (1) Hematoma of neck Your Health Problems Are: Bleeding Tendency Goals to Promote Your Health * To prevent worsening of your condition and complications * To maintain your health at the optimal level Directions to Meet Your Goals Take your medications as prescribed Follow your dietary instruction Follow activity as directed Keep your appointments as scheduled Take your immunizations and boosters as scheduled If your symptoms worsen call your PCP, if no PCP go to Urgent Care Center or Emergency Room Smoking is Dangerous to Your Health. Avoid second hand smoke Call the 24-hour hour crisis hotline for domestic abuse at Jose Antonio Gibbons MD May 30, 2017 15:14
--- NOTE | 2017-05-30 17:33 | HHI.PR ---
Subjective Subjective Notes Doing well Resting in bed No complaints Objective Vitals/I&O Vital Signs Date Time Temp Pulse Resp B/P Pulse Ox O2 Delivery O2 Flow Rate FiO2 05/30/17 16:00 96.0 92 19 118/57 97 05/30/17 12:41 Nasal Cannula 3.00 Labs Date/Time Procedure Status Source Growth 05/29/17 16:25 Urine Culture - Preliminary Resulted Urine Clean Catch <10,000 CFU/ML GRAM POSITIVE MERLE Cardiovascular: Regular Lungs: Clear Abdomen: Non-distended, Non-tender Extremities: No edema Narrative Exam LEFT neck hematoma s/p drainage---bandage in place with minimal drainage No change in voice A/P Assessment and Plan 81 year old male s/p I&D of LEFT neck hematoma; on Coumadin -Diet as tolerated -Continue dressing changes BID -Pain control -GS clear for DC -Okay to start Coumadin from GS standpoint Suzy Pappas May 30, 2017 17:33
--- NOTE | 2017-05-30 18:19 | HHI.PR ---
Subjective Remarks Stable and on O2 2 L. No chest pain. Arm is weak on left Objective Vital Signs Date Time Temp Pulse Resp B/P Pulse Ox O2 Delivery O2 Flow Rate FiO2 05/30/17 16:00 96.0 92 19 118/57 97 05/30/17 12:41 Nasal Cannula 3.00 05/30/17 12:35 97.9 107 18 136/64 95 05/30/17 10:17 102 05/30/17 09:22 94 Nasal Cannula 2.00 05/30/17 08:00 95.6 108 16 139/91 98 05/30/17 04:00 95.8 92 18 118/72 98 05/30/17 04:00 99.2 108 18 161/79 98 05/30/17 00:00 99.0 106 18 154/88 97 05/29/17 20:00 100 05/29/17 20:00 Nasal Cannula 3.00 Humidified 05/29/17 20:00 96.3 118 18 157/86 95 I/O 05/29/17 05/29/17 05/29/17 05/30/17 05/30/17 05/30/17 07:00 15:00 23:00 07:00 15:00 23:00 Intake Total 360 ml 0 ml Output Total 350 ml 600 ml 450 ml 475 ml 100 ml Balance -350 ml -240 ml -450 ml 0 ml -475 ml -100 ml Intake Oral 360 ml IV Total 0 ml Output Urine Total 350 ml 600 ml 450 ml 475 ml 100 ml # Bowel Movements 3 Result Diagram: 05/28/17 1008 05/28/17 1008 Objective Remarks GENERAL: This is a moderately obese elderly man who is alert . HEENT: Head is normocephalic. Pupils are reactive. NECK: Supple with No venous distention. No thyromegaly. CHEST: Decreased excursions. Decreased breath sounds to the left base . HEART: The heart sounds are irregularly irregular. No murmur. No S3. ABDOMEN: Soft, obese, without masses, organomegaly or tenderness. EXTREMITIES: No Edema with mild varicosities. He is weak in his left arm. NEUROLOGIC: Reflexes are 1+ . SKIN: No lesions. Assessment and Plan Assessment and Plan IMPRESSION 1. Acute respiratory failure.Resolved 2. A large left neck/supraclavicular hematoma with tracheal obstruction and deviation. 3. Radiculopathy left arm 4. Atrial fibrillation with rapid ventricular response. 5. Hypertension. 6. Ankylosing spondylitis. 7. Lung nodule 8. Obstructive sleep apnea syndrome. 9. Possible aspiration pneumonia. Plan : 1. Wean O2 to Keep sat >92 2. IS at bedside q3h 3. PT evaluation 4. CXR Friday 5. Symbicort inhaler , 2 puffs bid 6. Nebs tid , Albuterol 7. CT chest Rpt in 3 weeks Jaylen Thomas MD May 30, 2017 18:19
[2017-05-31] VITALS (10 sets, daily range): BP systolic 113–136; BP diastolic 57–101; PULSE 92–109; RESP 18–19; TEMP 95.7–100.1; O2SAT 94–99
[2017-05-31] MEDS: CHLORHEXIDINE GLUCONATE 2 % 1 PACK (2 CLOTHS) TOP SCH (04:00)
[2017-05-31] MEDS: RESP: ALBUTEROL 2.5 MG/3 ML NEB (SCH) INH ×3 (08:16→19:54)
[2017-05-31] MEDS ORDERED: METOPROLOL SUCCINATE 50 MG EXTENDED RELEASE TAB PO SCH (09:00)
[2017-05-31] MEDS: DOCUSATE SODIUM 50 MG/SENNA 8.6 MG TAB PO SCH ×2 (09:13→21:05)
[2017-05-31] MEDS: PANTOPRAZOLE SODIUM 40 MG VIAL IV SCH (09:14)
[2017-05-31] MEDS: SODIUM CHLORIDE 0.9% FLUSH 10 ML FLUSH IV FLUSH SCH ×2 (09:14→21:05)
--- NOTE | 2017-05-31 11:48 | HHI.PR ---
Subjective Remarks more alert today. afebrile. sounds congested with some cough. still tachycardic. d/w the RN. Objective Vitals Vital Signs Date Time Temp Pulse Resp B/P Pulse Ox O2 Delivery O2 Flow Rate FiO2 05/31/17 10:59 98 05/31/17 09:28 Nasal Cannula 2.00 05/31/17 09:27 96 Nasal Cannula 2.00 05/31/17 08:00 95.7 100 18 123/57 96 05/31/17 04:00 97.5 105 18 136/57 95 05/31/17 01:00 98.0 101 18 127/101 99 05/30/17 20:00 96.0 94 20 122/62 98 05/30/17 16:00 96.0 92 19 118/57 97 05/30/17 12:41 Nasal Cannula 3.00 05/30/17 12:35 97.9 107 18 136/64 95 I/O 05/30/17 05/30/17 05/30/17 05/31/17 05/31/17 05/31/17 07:00 15:00 23:00 07:00 15:00 23:00 Intake Total 0 ml Output Total 475 ml 100 ml 900 ml Balance 0 ml -475 ml -100 ml -900 ml IV Total 0 ml Output Urine Total 475 ml 100 ml 900 ml # Voids 2 Result Diagram: 05/28/17 1008 05/28/17 1008 Imaging Last Impressions Chest X-Ray 05/30/17 0600 Signed Impressions: Service Date/Time: Tuesday, May 30, 2017 06:34 - CONCLUSION: 1. Study is degraded by motion artifact. 2. Abnormal opacity remains at the lung bases left greater than right as well as probable small left effusion. Natan Márquez MD Elbow X-Ray 05/23/17 0129 Signed Impressions: Service Date/Time: Tuesday, May 23, 2017 04:04 - CONCLUSION: No acute fracture/effusion. Lopez Carrillo MD Brain MRI 05/23/17 0000 Signed Impressions: Service Date/Time: Tuesday, May 23, 2017 11:46 - CONCLUSION: 1. 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 2. Bilateral cortical atrophy and chronic white matter changes. Jair Brantley MD Head CT 05/22/17 1739 Signed Impressions: Service Date/Time: , May 22, 2017 18:00 - CONCLUSION: 1 cm hypodensity in the right caudate and internal capsule may represent an old infarction. However, in the absence of prior films and with the history of recent trauma, recommend further characterization of this finding with MRI of brain with and without contrast. Matthew Hill MD Neck CT 05/22/17 0000 Signed Impressions: Service Date/Time: , May 22, 2017 18:00 - CONCLUSION: Abnormal appearance the left supraclavicular region with greater the 11 cm mass which probably represents 3 adjacent components in contact with each other. One of the components has cystic or necrotic area. There is also a 4th opacity in the posterior lower left neck which surrounds the scapular spine and is more infiltrative in appearance. The findings are highly suspicious for malignancy. Matthew Hill MD Chest CT 05/22/17 0000 Signed Impressions: Service Date/Time: May 18:15 - CONCLUSION: Greater than 11 cm left supraclavicular mass is suspicious for malignancy. There is also a midthoracic right paraspinal mass measuring 4 cm in superior-inferior extent and an 11 mm right pulmonary nodule. Recommend PET/CT scan to evaluate metabolic behavior and to help in decision making regarding biopsy planning. Matthew Hill MD ADDENDUM: Additional history is now available; recent fall and the patient is on anticoagulation. The large mass in the left supraclavicular region has an appearance which is entirely consisted with a hematoma. The mediastinal adenopathy in the 1 cm nodule, however, are not characteristic of trauma. Recommend performing followup CT in one month specifically does the if the lung and mediastinal findings persist and if so, then consideration of PET/CT scan. Matthew Hill MD Objective Remarks GENERAL: in no apparent distress. CARDIOVASCULAR: Regular rate and regular rhythm without murmurs, gallops, or rubs. RESPIRATORY: Clear to auscultation. Breath sounds equal bilaterally. No wheezes , rales, or rhonchi. GASTROINTESTINAL: Abdomen soft, non-tender, nondistended. Normal, active bowel sounds MUSCULOSKELETAL: Extremities without clubbing, cyanosis, or edema. NEURO: more alert than yesterday but still slightly confused. Procedures evacuation of hematoma Medications and IVs Current Medications Sodium Chloride (NS Flush) 2 ml UNSCH PRN IVF FLUSH AFTER USING IV ACCESS; Start 05/22/17 at 15:30; Stop 05/22/17 at 21:19; Status DC Etomidate 40 mg 40 mg STK-MED ONCE .ROUTE ; Start 05/22/17 at 15:36; Stop at 15:37; Status DC Propofol (Diprivan 1000 Mg/100ml Inj) 100 ml @ As Directed STK-MED ONCE .ROUTE ; Start 05/22/17 at 15:45; Stop 05/22/17 at 15:46; Status DC Etomidate (Amidate Inj) 20 mg ONCE ONCE IV PUSH Last administered on 05/22/17 16:17; Start 05/22/17 at 16:00; Stop 05/22/17 at 16:01; Status DC Rocuronium [place] 50 mg 50 mg BOLUS ONCE IV Last administered on 05/22/17 16: 17; Start 05/22/17 at 16:00; Stop 05/22/17 at 16:01; Status DC Propofol (Diprivan 1000 Mg/100ml Inj) 100 ml @ 0 mls/hr TITRATE IV Last administered on 05/22/17 19:41; Start 05/22/17 at 16:00; Stop 05/22/17 at 21:19; Status DC Diltiazem HCl 20 mg 20 mg ONCE ONCE IV Last administered on 05/22/17 18:43; Start 05/22/17 at 17:30; Stop 05/22/17 at 17:31; Status DC Ceftriaxone Sodium 1000 mg/ Sodium Chloride 100 ml @ 200 mls/hr ONCE ONCE IV Last administered on 05/22/17 18:50; Start 05/22/17 at 18:00; Stop 05/22/17 at 18: 29; Status DC Azithromycin/ Sodium Chloride (Zithromax Inj/ NS 250 ml Inj) 250 ml @ 250 mls/ hr ONCE ONCE IV Last administered on 05/22/17 19:47; Start 05/22/17 at 18:00; Stop 05/22/17 at 18:59; Status DC Iohexol 60 ml 60 ml STK-MED ONCE IV Last administered on 05/22/17 18:23; Start 05/22/17 at 18:23; Stop 05/22/17 at 18:24; Status DC Phytonadione 10 mg/Sodium Chloride 51 ml @ 102 mls/hr ONCE ONCE IV ; Start 05/22/17 at 20:15; Stop 05/22/17 at 20:15; Status Cancel Azithromycin 500 mg/Sodium Chloride 250 ml @ 250 mls/hr Q24H IV Last administered on 05/23/17 20:46; Start 05/23/17 at 20:00; Stop 05/23/17 at 20:30; Status DC Ceftriaxone Sodium 1000 mg/ Sodium Chloride 100 ml @ 200 mls/hr Q12H IV ; Start 05/23/17 at 06:00; Stop 05/23/17 at 06:00; Status DC Piperacillin Sod/ Tazobactam Sod 50 ml @ 100 mls/hr Q6H IV Last administered on 05/25/17 09:25; Start 05/22/17 at 21:00; Stop 05/25/17 at 11:49; Status DC Phytonadione 10 mg/Dextrose 51 ml @ 102 mls/hr ONCE ONCE IV ; Start 05/22/17 at 20:45; Stop 05/22/17 at 21:15; Status DC Phytonadione/ Sodium Chloride (Vitamin K Inj/ NS Inj) 50.5 ml @ 102 mls/hr ONCE ONCE IV Last administered on 05/22/17 21:41; Start 05/22/17 at 21:00; Stop 05/22/17 at 21:29; Status DC Sodium Chloride (NS Flush) 2 ml UNSCH PRN IV FLUSH FLUSH AFTER USING IV ACCESS ; Start 05/22/17 at 21:15 Sodium Chloride (NS Flush) 2 ml BID IV FLUSH Last administered on 05/31/17 09: 14; Start 05/23/17 at 09:00 Acetaminophen (Tylenol) 650 mg Q6H PRN PO PAIN 1-2 AND/OR FEVER >101F Last administered on 05/28/17 02:36; Start 05/22/17 at 21:15 Fentanyl Citrate (fentaNYL INJ) 50 mcg Q1H PRN IV PUSH Pain scale 6-10 &/or sedation; Start 05/22/17 at 21:15; Stop 05/25/17 at 11:49; Status DC Pantoprazole Sodium (Protonix Inj) 40 mg DAILY IV Last administered on 09:14; Start 05/23/17 at 09:00 Ondansetron HCl (Zofran Inj) 4 mg Q6H PRN IV NAUSEA OR VOMITING; Start 05/22/17 at 21:15 Albuterol Sulfate (Albuterol Neb) 2.5 mg Q2HR NEB PRN INH SOB/WHEEZING; Start 05/22/17 at 21:15; Stop 05/31/17 at 09:00; Status DC Miscellaneous Information 1 [id number] ; Start 05/22/17 at 21:15 Chlorhexidine Gluconate (Chlorhexidine 2% Cloth) Taper DAILY@04 TOP Last administered on 05/25/17 19:03; Start 05/23/17 at 04:00; Stop 05/19/18 at 03:59 Chlorhexidine Gluconate (Chlorhexidine 2% Cloth) 3 pack UNSCH PRN TOP HYGIENIC CARE; Start 05/22/17 at 21:15; Stop 05/29/17 at 11:20; Status DC Senna/Docusate Sodium (Kiah-Colace) 1 tab BID PO Last administered on 09:13; Start 05/23/17 at 09:00 Magnesium Hydroxide (Milk Of Magnesia Liq) 30 ml Q12H PRN PO MILD - MODERATE CONSTIPATION; Start 05/22/17 at 21:15 Sennosides (Senokot) 17.2 mg Q12H PRN PO MODERATE - SEVERE CONSTIPATION; Start 05/22/17 at 21:15 Bisacodyl (Dulcolax Supp) 10 mg DAILY PRN RECTAL SEVERE CONSITIPATION; Start at 21:15 Lactulose 30 ml 30 ml DAILY PRN PO SEVERE CONSITIPATION; Start 05/22/17 at 21:15 Propofol 100 ml @ 0 mls/hr TITRATE IV Last administered on 05/25/17 05:42; Start 05/22/17 at 21:15; Stop 05/25/17 at 11:49; Status DC Dextrose/Sodium Chloride (D5W-NS 1000 ml Inj) 1,000 ml @ 84 mls/hr [id number] IV Last administered on 05/23/17 08:14; Start 05/22/17 at 21:15; Stop 05/23/17 at 10: 27; Status DC Chlorhexidine Gluconate 15 ml 15 ml BID@08,20 MT Last administered on 05/25/17t 09:27; Start 05/23/17 at 08:00; Stop 05/29/17 at 11:20; Status DC Potassium Chloride 100 ml @ 50 mls/hr Q2H PRN IV For Potassium 2.8 - 3.2 mEq/L ; Start 05/22/17 at 21:45; Stop 05/26/17 at 13:20; Status DC Potassium Chloride (KCl 20 Meq Premix Inj) 100 ml @ 50 mls/hr Q2H PRN IV For Potassium 2.8 - 3.2 mEq/L; Start 05/22/17 at 21:45; Stop 05/26/17 at 13:20; Status DC Potassium Bicarb/ Potassium Chloride 50 meq 50 meq UNSCH PRN PO For Potassium 3.3 - 3.5 mEq/L; Start 05/22/17 at 21:45; Stop 05/26/17 at 13:20; Status DC Potassium Chloride 100 ml @ 25 mls/hr UNSCH PRN IV For Potassium 3.3 - 3.5 mEq /L; Start 05/22/17 at 21:45; Stop 05/26/17 at 13:20; Status DC Potassium Chloride 100 ml @ 50 mls/hr Q2H PRN IV For Potassium 3.3 - 3.5 mEq/L ; Start 05/22/17 at 21:45; Stop 05/26/17 at 13:20; Status DC Magnesium Sulfate/ Sodium Chloride (Magnesium Sulfate Inj/NS Inj) 100 ml @ 50 mls/hr UNSCH PRN IV For Magnesium 0.9 - 1.1 mg/dL; Start 05/22/17 at 21:45; Stop 05/26/17 at 13:21; Status DC Magnesium Oxide 800 mg 800 mg UNSCH PRN PO For Magnesium 1.2 - 1.6 mg/dL; Start 05/22/17 at 21:45; Stop 05/26/17 at 13:21; Status DC Magnesium Sulfate/ Sodium Chloride (Magnesium Sulfate Inj/NS Inj) 100 ml @ 50 mls/hr UNSCH PRN IV For Magnesium 1.2 - 1.6 mg/dL; Start 05/22/17 at 21:45; Stop 05/26/17 at 13:21; Status DC Potassium Phosphate 2000 mg 2,000 mg Q4H PRN PO For Phosphorus < 2.5 mg/dL; Start 05/22/17 at 21:45; Stop 05/26/17 at 13:21; Status DC Sodium Phosphate/ Sodium Chloride (Sodium Phosphate Inj/NS 250 ml Inj) 250 ml @ 42 mls/hr UNSCH PRN IV For Phosphorus < 2.5 mg/dL; Start 05/22/17 at 21:45; Stop 05/26/17 at 13:21; Status DC Potassium Phosphate 2000 mg 2,000 mg UNSCH PRN PO/TUBE SEE LABEL COMMENTS; Start 05/22/17 at 21:45; Stop 05/26/17 at 13:21; Status DC Potassium Phosphate/Sodium Chloride (Potassium Phosphate Inj/NS 250 ml Inj) 260 ml @ 42 mls/hr UNSCH PRN IV SEE LABEL COMMENTS; Start 05/22/17 at 21:45; Stop 05/26/17 at 13:20; Status DC Dexamethasone Sodium Phosphate (Decadron Inj) 4 mg Q6HR IV PUSH Last administered on 05/24/17 05:10; Start 05/23/17 at 12:00; Stop 05/24/17 at 11:59; Status DC Furosemide (Lasix Inj) 20 mg ONCE ONCE IV PUSH Last administered on 05/23/17 10:47; Start 05/23/17 at 10:30; Stop 05/23/17 at 11:02; Status DC Albuterol/ Ipratropium (Duoneb Neb) 1 ampule Q6HR WHILE AWAKE NEB NEB Last administered on 05/27/17 10:59; Start 05/23/17 at 14:00; Stop 05/27/17 at 14:01 ; Status DC Gadodiamide 22 ml 22 ml STK-MED ONCE IV Last administered on 05/23/17 12:32; Start 05/23/17 at 12:32; Stop 05/23/17 at 12:33; Status DC Fentanyl Citrate (fentaNYL DRIP) 250 ml @ 0 mls/hr TITRATE IV Last administered on 05/24/17 20:13; Start 05/23/17 at 20:15; Stop 05/25/17 at 11:49; Status DC Lidocaine/ Epinephrine (Xylocaine-Epi 1%-1:100,000 Inj) 30 ml STK-MED ONCE .ROUTE Last administered on 05/24/17 02:00; Start 05/24/17 at 14:10; Stop at 14:11; Status DC Furosemide (Lasix Inj) 20 mg ONCE ONCE IV PUSH Last administered on 05/24/17 18:05; Start 05/24/17 at 17:15; Stop 05/24/17 at 17:16; Status DC Diltiazem HCl (Cardizem Inj) 20 mg STAT ONCE IV Last administered on 05/25/17 08:10; Start 05/25/17 at 08:15; Stop 05/25/17 at 08:16; Status DC Diltiazem HCl (Cardizem Inj) 25 mg STK-MED ONCE .ROUTE ; Start 05/25/17 at 08:09 ; Stop 05/25/17 at 08:10; Status DC Amoxicillin/ Clavulanate Potassium (Augmentin) 875 mg Q12HR PO Last administered on 05/30/17 09:07; Start 05/25/17 at 21:00; Stop 05/30/17 at 20:59 ; Status DC Oxycodone HCl (Roxicodone) 5 mg Q4H PRN PO pain 1-7 Last administered on 02:08; Start 05/25/17 at 12:00 Hydromorphone HCl 0.5 mg 0.5 mg Q4H PRN IV PUSH pain 8-10 or not taking po Last administered on 05/26/17 16:24; Start 05/25/17 at 12:00 Sodium Chloride (NS 500 ml Inj) 500 ml @ 50 mls/hr Q10H IV Last administered on 05/25/17 14:32; Start 05/25/17 at 12:00; Stop 05/25/17 at 21:59; Status DC Metoprolol Succinate (Toprol Xl) 12.5 mg DAILY PO Last administered on 09:07; Start 05/26/17 at 09:30; Stop 05/30/17 at 12:02; Status DC Miscellaneous (Pill Splitter) 1 ea UNSCH PRN OTHER SEE LABEL COMMENTS; Start at 09:30 Enalaprilat (Vasotec Inj) 1.25 mg Q8H PRN IV PUSH SYSTOLIC BP >180 mmHg Last administered on 05/26/17 16:57; Start 05/26/17 at 16:45 Potassium Chloride (KCl) 40 meq ONCE ONCE PO Last administered on 05/28/17 15 :20; Start 05/28/17 at 14:00; Stop 05/28/17 at 14:01; Status DC Haloperidol Lactate (Haldol Inj) 2 mg ONCE ONCE IV PUSH Last administered on 21:07; Start 05/29/17 at 19:45; Stop 05/29/17 at 21:04; Status DC Metoprolol Succinate (Toprol Xl) 50 mg DAILY PO Last administered on 05/31/17 09:12; Start 05/31/17 at 09:00 Metoprolol Succinate (Toprol Xl) 25 mg ONCE ONCE PO Last administered on 12:36; Start 05/30/17 at 12:00; Stop 05/30/17 at 12:03; Status DC Albuterol Sulfate (Albuterol Neb) 2.5 mg TID NEB INH Last administered on 05/31 08:16; Start 05/31/17 at 08:00 A/P Assessment and Plan 81yM on chronic anticoagulation s/p mechanical fall with left neck/chest wall hematoma and airway compromise. Acute respiratory failure secondary to Large L supraclavicular hematoma (11 cm) , swelling Left posterior neck causing trachea shift and airway compromise s/p intubation/ extubation History of tobacco abuse Ankylosing spondylitis 1.17 cm right pulmonary nodule CT chest/neck 1.1 cm R pulmonary nodule, peripherally located adjacent to pleura. 2.6 cm mass in right paraspinous region, extending from subcarinal level. 11.3 cm x 7.3 cm L supraclavicular hematoma. Extends posterior to clavicle. No active extravasation. previously Discussed with Dr. Hill. Recommends repeat CT in 2-4 weeks and if these findings persist, obtain outpatient PET scan. Patient is known to Dr. Harry, pulmonary follow-up appreciated- CXR to be repeated on Friday and CT chest in three weeks. L supraclavicular hematoma -- s/p evacuation of hematoma 05/24 at bedside. --general surgery follow-up appreciated -cleared for discharge per general surgery -consulted OT left upper extremity weakness due to fall neurology consult appreciated continue OT Atrial fibrillation with RVR on chronic anticoagulation with warfarin cardiomyopathy Hypertension History of hyperlipidemia Coronary artery disease with prior stents about 12 years ago increase metoprolol - continue to monitor and adjust the regimen as needed. Patient was no longer on statin per so removed from med rec. resume warfarin - ok with surgery. will give one dose of Lasix today. 2d echo 05/23: EF 40 - 45%, small pericardial effusion without tamponade Fall History of mild dementia CT brain - 1 cm hypodensity and right caudate and internal capsule which may represent an old infarction. MRI confirms old infarct. 05/23 PT following. GERD Recinos's esophagus continue PPI Acute kidney injury- resolved Monitor intake and output. Monitor electrolytes. possible Aspiration blood cultures negative and sputum culture with normal respiratory jevon cultures are negative x 48h, but elevated wbc. continue po augmentin and continue x [address] chest - bilateral infiltrates posterior lower lung mcbride.(in addition to above discussed finding) consulted ST Anemia Coagulopathy secondary to chronic warfarin cleared by surgery to resume anticoagulation Acute left elbow contusion XR elbow with no acute fracture. DVT prophylaxis; SCD's/ coumadin Discharge Planning plan for dc to inpatient rehab. discharge within the next couple of days if stable. Jose Antonio Gibbons MD May 31, 2017 11:48 Jose Antonio Gibbons MD May 31, 2017 11:48
[2017-05-31] MEDS ORDERED: FUROSEMIDE 20 MG/2 ML VIAL IV PUSH ONE (12:00)
[2017-05-31] MEDS ORDERED: POTASSIUM CHLORIDE 20 MEQ CONTROLLED RELEASE TAB PO ONE (12:00)
[2017-05-31] MEDS ORDERED: METOPROLOL SUCCINATE 25 MG EXTENDED RELEASE TAB PO ONE (12:00)
[2017-05-31] MEDS ORDERED: WARFARIN SOD 5 MG TAB PO SCH (16:00)
[2017-05-31 17:22] LABS: INTERNATIONAL NORMALIZED RATIO 1.1 RATIO; PROTHROMBIN TIME - PATIENT 11.9 SEC (9.8-11.6)
[2017-05-31] MEDS: WARFARIN SOD 5 MG TAB PO SCH (17:58)
[2017-06-01 00:15] VITALS: BP 115/60; PULSE 105; RESP 19; TEMP 99.1; O2SAT 94
[2017-06-01] MEDS: CHLORHEXIDINE GLUCONATE 2 % 1 PACK (2 CLOTHS) TOP SCH (04:00)
[2017-06-01 04:45] VITALS: BP 118/59; PULSE 110; RESP 19; TEMP 98.6; O2SAT 94
[2017-06-01 08:09] VITALS: BP 151/76; PULSE 103; RESP 20; TEMP 98; O2SAT 94
[2017-06-01] MEDS: DOCUSATE SODIUM 50 MG/SENNA 8.6 MG TAB PO SCH ×2 (08:11→20:10)
[2017-06-01] MEDS: METOPROLOL SUCCINATE 25 MG EXTENDED RELEASE TAB PO SCH (08:11)
[2017-06-01] MEDS: SODIUM CHLORIDE 0.9% FLUSH 10 ML FLUSH IV FLUSH SCH ×2 (08:13→20:10)
[2017-06-01] MEDS: PANTOPRAZOLE SODIUM 40 MG VIAL IV SCH (08:13)
[2017-06-01] MEDS: RESP: ALBUTEROL 2.5 MG/3 ML NEB (SCH) INH ×3 (08:50→20:36)
--- NOTE | 2017-06-01 12:08 | HHI.PR ---
Subjective Remarks MAXIMUM TEMPERATURE overnight 100.1. Patient with productive cough. Denies any pain. Remains confused. Oriented to self, not to time or place. Objective Vitals Vital Signs Date Time Temp Pulse Resp B/P Pulse Ox O2 Delivery O2 Flow Rate FiO2 06/01/17 08:09 98.0 103 20 151/76 94 06/01/17 04:45 98.6 110 19 118/59 94 06/01/17 00:15 99.1 105 19 115/60 94 05/31/17 21:45 100.1 109 19 113/58 94 05/31/17 20:00 Nasal Cannula 2.00 05/31/17 20:00 96 05/31/17 19:58 95 Nasal Cannula 2.00 05/31/17 16:00 96.7 94 18 121/58 95 I/O 05/31/17 05/31/17 05/31/17 06/01/17 06/01/17 06/01/17 07:00 15:00 23:00 07:00 15:00 23:00 Intake Total 480 ml 400 ml 300 ml Output Total 900 ml 1525 ml Balance -900 ml -1045 ml 400 ml 300 ml Intake Oral 480 ml 400 ml 300 ml Output Urine Total 900 ml 1525 ml # Voids 2 1 5 1 # Bowel Movements 0 0 0 Result Diagram: 05/28/17 1008 05/28/17 1008 Objective Remarks GENERAL: in no apparent distress. CARDIOVASCULAR: Regular rate and regular rhythm without murmurs, gallops, or rubs. RESPIRATORY: Clear to auscultation. Breath sounds equal bilaterally. No wheezes , rales, or rhonchi. GASTROINTESTINAL: Abdomen soft, non-tender, nondistended. Normal, active bowel sounds MUSCULOSKELETAL: Extremities without clubbing, cyanosis, or edema. NEURO: Alert to self, not oriented to time or place Procedures evacuation of hematoma A/P Assessment and Plan 81yM on chronic anticoagulation s/p mechanical fall with left neck/chest wall hematoma and airway compromise. Acute respiratory failure secondary to Large L supraclavicular hematoma (11 cm) , swelling Left posterior neck causing trachea shift and airway compromise s/p intubation/ extubation History of tobacco abuse Ankylosing spondylitis 1.17 cm right pulmonary nodule CT chest/neck 1.1 cm R pulmonary nodule, peripherally located adjacent to pleura. 2.6 cm mass in right paraspinous region, extending from subcarinal level. 11.3 cm x 7.3 cm L supraclavicular hematoma. Extends posterior to clavicle. No active extravasation. previously Discussed with Dr. Hill. Recommends repeat CT in 2-4 weeks and if these findings persist, obtain outpatient PET scan. Patient is known to Dr. Harry, pulmonary follow-up appreciated- CXR to be repeated tomorrow and CT chest in three weeks. L supraclavicular hematoma -- s/p evacuation of hematoma 05/24 at bedside. --general surgery follow-up appreciated -cleared for discharge per general surgery -consulted OT left upper extremity weakness due to fall neurology consult appreciated continue OT Atrial fibrillation with RVR on chronic anticoagulation with warfarin cardiomyopathy Hypertension History of hyperlipidemia Coronary artery disease with prior stents about 12 years ago Continue metoprolol - continue to monitor and adjust the regimen as needed. Patient was no longer on statin per so removed from med rec. resume warfarin - ok with surgery. 2d echo 05/23: EF 40 - 45%, small pericardial effusion without tamponade Fall History of mild dementia CT brain - 1 cm hypodensity and right caudate and internal capsule which may represent an old infarction. MRI confirms old infarct. 05/23 PT following. GERD Recinos's esophagus continue PPI Acute kidney injury- resolved Monitor intake and output. Monitor electrolytes. possible Aspiration blood cultures negative and sputum culture with normal respiratory jevon cultures are negative x 48h, but elevated wbc. continue po augmentin and continue x [address] chest - bilateral infiltrates posterior lower lung mcbride.(in addition to above discussed finding) consulted ST Anemia Coagulopathy secondary to chronic warfarin cleared by surgery to resume anticoagulation Acute left elbow contusion XR elbow with no acute fracture. DVT prophylaxis; SCD's/ coumadin Discharge Planning plan for dc to inpatient rehab. discharge within the next couple of days if stable. Erma Pearson MD R3 Jun 01, 2017 12:08
--- NOTE | 2017-06-01 13:41 | RADRPT ---
EXAM DATE/TIME: 06/01/2017 13:07 [facility] COMPARISON: CHEST SINGLE AP, May 30, 2017, 6:34. INDICATIONS : Shortness of Breath MEDICAL HISTORY : Cardiovascular disease. Dementia, Atrial Fib SURGICAL HISTORY : Coronary artery stent. ENCOUNTER: Subsequent ACUITY: 1 week PAIN SCORE: 0/10 LOCATION: Bilateral chest FINDINGS: There is slight cardiomegaly and perivascular pulmonary edema. Focal consolidation is not seen. CONCLUSION: Slight CHF. Kael Duong MD on June 01, 2017 at 13:39 Board Certified Radiologist. This report was verified electronically.
[2017-06-01] MEDS: WARFARIN SOD 5 MG TAB PO SCH (16:03)
[2017-06-01 16:43] VITALS: BP 100/63; PULSE 100; RESP 20; TEMP 95.9; O2SAT 98
[2017-06-01 20:40] VITALS: O2SAT 94
[2017-06-01 20:55] VITALS: BP 131/65; PULSE 90; RESP 18; TEMP 97; O2SAT 91
[2017-06-01 22:17] LABS: INTERNATIONAL NORMALIZED RATIO 1.3 RATIO; PROTHROMBIN TIME - PATIENT 14.5 SEC (9.8-11.6)
[2017-06-01 22:28] LABS: BICARBONATE 29.2 MEQ/L (21.0-32.0); POTASSIUM 3.8 MEQ/L (3.5-5.1)
[2017-06-02] VITALS (8 sets, daily range): BP systolic 109–130; BP diastolic 57–80; PULSE 80–96; RESP 18–23; TEMP 95.9–98.1; O2SAT 94–97
[2017-06-02] MEDS: CHLORHEXIDINE GLUCONATE 2 % 1 PACK (2 CLOTHS) TOP SCH (03:11)
[2017-06-02] MEDS: RESP: ALBUTEROL 2.5 MG/3 ML NEB (SCH) INH ×2 (07:45→14:38)
[2017-06-02] MEDS: METOPROLOL SUCCINATE 25 MG EXTENDED RELEASE TAB PO SCH (08:47)
[2017-06-02] MEDS: SODIUM CHLORIDE 0.9% FLUSH 10 ML FLUSH IV FLUSH SCH (08:47)
[2017-06-02] MEDS: DOCUSATE SODIUM 50 MG/SENNA 8.6 MG TAB PO SCH (08:47)
[2017-06-02] MEDS: PANTOPRAZOLE SODIUM 40 MG VIAL IV SCH (08:47)
--- NOTE | 2017-06-02 11:00 | HHI.PR ---
Subjective Remarks Written by Elizabeth Garza PA-C acting as scribe for Dr. Lambert on 06/02/17 at 10:50. Follow up on patient with left sided neck/chest hematoma. Patient seen and examined today. Patient reports he is doing okay. Denies any fever or chills. Denies any chest pain or SOB. Denies any N/V or abdominal pain. Reports chronic cough for the past 18mos. Patient has more ROM in E. [facility] is [facility]. Objective Vitals Vital Signs Date Time Temp Pulse Resp B/P Pulse Ox O2 Delivery O2 Flow Rate FiO2 06/02/17 09:06 90 06/02/17 09:00 94 Nasal Cannula 06/02/17 07:55 95.9 96 20 123/60 94 06/02/17 07:46 95 Nasal Cannula 2.00 06/02/17 05:45 97.9 80 23 128/80 95 06/02/17 01:08 94 06/02/17 01:00 98.1 89 21 130/67 94 06/02/17 00:00 96.1 84 18 109/57 97 06/01/17 20:55 97.0 90 18 131/65 91 06/01/17 20:40 94 Nasal Cannula 2.00 06/01/17 20:00 93 Room Air 06/01/17 16:43 95.9 100 20 100/63 98 06/01/17 14:32 95 Room Air I/O 06/01/17 06/01/17 06/01/17 06/02/17 06/02/17 06/02/17 07:00 15:00 23:00 07:00 15:00 23:00 Intake Total 300 ml 120 ml 850 ml Output Total 800 ml Balance 300 ml 120 ml 50 ml Intake Oral 300 ml 120 ml 850 ml Output Urine Total 800 ml # Voids 5 1 3 1 # Bowel Movements 0 0 Result Diagram: 06/01/172122 Imaging Last Impressions Chest X-Ray 06/01/17 0000 Signed Impressions: Service Date/Time: Thursday, June 01, 2017 13:07 - CONCLUSION: Slight CHF. K. Anjel Duong MD Elbow X-Ray 05/23/17 0129 Signed Impressions: Service Date/Time: Tuesday, May 23, 2017 04:04 - CONCLUSION: No acute fracture/effusion. Lopez Carrillo MD Brain MRI 05/23/17 Signed Impressions: Service Date/Time: Tuesday, May 23, 2017 11:46 - CONCLUSION: 1. 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 2. Bilateral cortical atrophy and chronic white matter changes. Jair Brantley MD Head CT 05/22/17 1739 Signed Impressions: Service Date/Time: May 18:00 - CONCLUSION: 1 cm hypodensity in the right caudate and internal capsule may represent an old infarction. However, in the absence of prior films and with the history of recent trauma, recommend further characterization of this finding with MRI of brain with and without contrast. Matthew Hill MD Neck CT 05/22/17 Signed Impressions: Service Date/Time: May 18:00 - CONCLUSION: Abnormal appearance the left supraclavicular region with greater the 11 cm mass which probably represents 3 adjacent components in contact with each other. One of the components has cystic or necrotic area. There is also a 4th opacity in the posterior lower left neck which surrounds the scapular spine and is more infiltrative in appearance. The findings are highly suspicious for malignancy. Matthew Hill MD Chest CT 05/22/17 Signed Impressions: Service Date/Time: May 18:15 - CONCLUSION: Greater than 11 cm left supraclavicular mass is suspicious for malignancy. There is also a midthoracic right paraspinal mass measuring 4 cm in superior-inferior extent and an 11 mm right pulmonary nodule. Recommend PET/CT scan to evaluate metabolic behavior and to help in decision making regarding biopsy planning. Matthew Hill MD ADDENDUM: Additional history is now available; recent fall and the patient is on anticoagulation. The large mass in the left supraclavicular region has an appearance which is entirely consisted with a hematoma. The mediastinal adenopathy in the 1 cm nodule, however, are not characteristic of trauma. Recommend performing followup CT in one month specifically does the if the lung and mediastinal findings persist and if so, then consideration of PET/CT scan. Matthew Hill MD Objective Remarks GENERAL: Well-nourished, well-developed patient in NAD. Awake and alert. Lying in hospital bed. is at the bedside. SKIN: Warm and dry. No rash. HEENT: Normocephalic. Atraumatic. EOMI. MMM. NECK: Supple. Trachea midline. Dressing left side of neck C/D/I. CARDIOVASCULAR: Regular rate and rhythm. No murmur appreciated. RESPIRATORY: Clear to auscultation but diminished at the bases bilaterally. GASTROINTESTINAL: Abdomen soft, non-tender, nondistended. Normoactive bowel sounds x4. NEUROLOGICAL: Awake and alert. quiet. PSYCHIATRIC: Appropriate mood and affect; insight and judgment normal. Procedures evacuation of hematoma Medications and IVs Current Medications Medications (Trade) Dose Ordered Sig/Lurdes Route Start Time Stop Time Status Last Admin (NS Flush) 2 ml UNSCH PRN IV FLUSH 05/22/17 21:15 (NS Flush) 2 ml BID IV FLUSH 05/23/17 09:00 06/02/17 08:47 (Tylenol) 650 mg Q6H PRN PO 05/22/17 21:15 05/28/17 02:36 (Protonix Inj) 40 mg DAILY IV 05/23/17 09:00 06/02/17 08:47 (Zofran Inj) 4 mg Q6H PRN IV 05/22/17 21:15 Miscellaneous Information 1 Q361D XX 05/22/17 21:15 (Chlorhexidine 2% Cloth) Taper DAILY@04 TOP 05/23/17 04:00 05/19/18 03:59 05/25/17 19:03 (Kiah-Colace) 1 tab BID PO 05/23/17 09:00 06/02/17 08:47 (Milk Of Magnesia Liq) 30 ml Q12H PRN PO 05/22/17 21:15 (Senokot) 17.2 mg Q12H PRN PO 05/22/17 21:15 (Dulcolax Supp) 10 mg DAILY PRN RECTAL 05/22/17 21:15 (Lactulose Liq) 30 ml DAILY PRN PO 05/22/17 21:15 (Roxicodone) 5 mg Q4H PRN PO 05/25/17 12:00 05/31/17 02:08 (Dilaudid Pf Inj) 0.5 mg Q4H PRN IV PUSH 05/25/17 12:00 05/26/17 16:24 (Pill Splitter) 1 ea UNSCH PRN OTHER 05/26/17 09:30 (Vasotec Inj) 1.25 mg Q8H PRN IV PUSH 05/26/17 16:45 05/26/17 16:57 Metoprolol Succinate 75 mg 75 mg DAILY PO 06/01/17 09:00 06/02/17 08:47 (Coumadin Consult Pharmacy) 0 ml @ 0 mls/hr UNSCH OTHER 05/31/17 12:00 (Coumadin) 5 mg DAILY@1600 PO 05/31/17 18:00 06/01/17 16:03 A/P Assessment and Plan 81yM on chronic anticoagulation s/p mechanical fall with left neck/chest wall hematoma and airway compromise. Acute respiratory failure secondary to Large L supraclavicular hematoma (11 cm) , swelling Left posterior neck causing trachea shift and airway compromise s/p intubation/ extubation History of tobacco abuse Ankylosing spondylitis 1.17 cm right pulmonary nodule -CT chest/neck 1.1 cm R pulmonary nodule, peripherally located adjacent to pleura. 2.6 cm mass in right paraspinous region, extending from subcarinal level. 11.3 cm x 7.3 cm L supraclavicular hematoma. Extends posterior to clavicle. No active extravasation. -previously Discussed with Dr. Hill. Recommends repeat CT in 2-4 weeks and if these findings persist, obtain outpatient PET scan. -Patient is known to Dr. Harry, -pulmonary follow-up appreciated- plan to repeat CT chest in three weeks. -CXR 06/01/17 revealed mild CHF. started him on lasix 40mg po daily L supraclavicular hematoma -- s/p evacuation of hematoma 05/24 at bedside. --general surgery follow-up appreciated -cleared for discharge per general surgery - continue OT left upper extremity weakness due to fall -neurology consult appreciated -continue OT Atrial fibrillation with RVR on chronic anticoagulation with warfarin cardiomyopathy Hypertension History of hyperlipidemia Coronary artery disease with prior stents about 12 years ago -Rate controlled. Continue metoprolol - continue to monitor and adjust the regimen as needed. -Patient was no longer on statin per so removed from med rec. -Continue warfarin - ok with surgery. INR subtherapeutic at 1.3. Pharmacy to dose. Continue to monitor INR. -2d echo 05/23: EF 40 - 45%, small pericardial effusion without tamponade. CXR (+ )mild CHF. Start low dose Lasix. Monitor. Fall History of mild dementia -CT brain - 1 cm hypodensity and right caudate and internal capsule which may represent an old infarction. MRI confirms old infarct. 05/23 -PT following. GERD Recinos's esophagus -continue PPI Acute kidney injury- resolved -Monitor intake and output. Monitor electrolytes. possible Aspiration -blood cultures negative and sputum culture with normal respiratory jevon -cultures are negative x 5 days, but elevated wbc. continue po augmentin and continue x 5 days total. -CT chest - bilateral infiltrates posterior lower lung mcbride.(in addition to above discussed finding) -passed swallow evaluation regular, thin liquid diet Anemia Coagulopathy secondary to chronic warfarin -hemoglobin trending up -cleared by surgery to resume anticoagulation Acute left elbow contusion -XR elbow with no acute fracture. DVT prophylaxis; SCD's/ coumadin This note was transcribed by vinita Garza. I, Dr. Brenna Lambert personally performed the history, physical exam, and medical decision making; and confirmed the accuracy of the information in the transcribed note. Authenticated by Dr. Brenna Lambert on 06/02/17 at 10:50. Discharge Planning Transfer to [facility] today Elizabeth Garza Jun 02, 2017 11:00 Brenna Lambert MD Jun 02, 2017 19:18
[2017-06-02 11:08] LABS: INTERNATIONAL NORMALIZED RATIO 1.4 RATIO; PROTHROMBIN TIME - PATIENT 15.5 SEC (9.8-11.6)
[2017-06-02] MEDS ORDERED: FUROSEMIDE 40 MG TAB PO SCH (11:15)
--- NOTE | 2017-06-02 11:41 | RADRPT ---
EXAM DATE/TIME: 06/02/2017 11:16 [place] COMPARISON: CHEST SINGLE AP, June 01, 2017, 13:07. INDICATIONS : Shortness of breath. MEDICAL HISTORY : Cardiovascular disease. Dementia, A-fib SURGICAL HISTORY : Coronary artery stent. ENCOUNTER: Initial ACUITY: 1 day PAIN SCORE: 0/10 LOCATION: Bilateral chest FINDINGS: PA and lateral views of the chest demonstrate the lungs to be symmetrically aerated without evidence of mass, infiltrate or effusion. Moderate cardiomegaly. No pulmonary vascular engorgement observed. O sseous structures are intact. CONCLUSION: 1. Moderate cardiomegaly. 2. Clear lungs. Matthew Harrington Jr., MD on June 02, 2017 at 11:38 Board Certified Radiologist. This report was verified electronically.
[2017-06-02] MEDS ORDERED: COUM5TAB PO (14:14)
[2017-06-02] MEDS ORDERED: FURO40TA PO (14:14)
--- NOTE | 2017-06-02 14:14 | HHI.DS ---
Discharge Summary Admission Date May 22, 2017 at 18:56 Discharge Date: Jun 02, 2017 Admitting Diagnosis Neck Hematoma, Stridor, Intubation (1) Stridor ICD Code: R06.1 Diagnosis: Principal (2) Contusion of elbow, left ICD Code: S50.02XA Diagnosis: Principal (3) Hematoma of neck ICD Code: S10.93XA Diagnosis: Principal Procedures evacuation of hematoma Brief History - From Admission 81 WM with PMH of HTN, Atrial fibrillation with RVR on chronic anticoagulation with warfarin, CAD with prior stent, anklyosing spondylitis who was visiting his son in [place] when he fell on 05/20/17 at 01:30 in the morning when he got up to go to the bathroom. He developed some bruising of his left shoulder when he reportedly hit it on the doorway. He had no LOC or reported head trauma and his mental status was baseline.. He required assistance from family members to get back up. He was able to move his shoulder well so they did not seek medical attention. His supraclavicular region was very swollen the next day. At around 3 am today he awoke complaining of difficulty breathing and difficulty swallowing. While on an airline flight returning home today, his noted that his voice was changing. He did not eat anything all day because of the difficulty with swallowing. He immediately went to his primary care physician's office, Dr. Yanely Cantu, who immediately requested [facility] for transfer. Upon arrival to the ED he was noted to have stridor with large hematoma L supraclavicular region, swelling of left neck, ecchymosis overlying left chest wall.. He was intubated for maintenance of airway by Dr. Mayo without difficulty. He was also in A fib RVR with rate in 150s, now rate controlled after Cardizem [address] chest demonstrates 11 cm mass left supraclavicular region that per discussion with Dr. Hill is consistent with hematoma from fall. There is a 1.1 cm Right pulmonary nodule, 2.6 cm subcarinal mass and mediastinal lymphadenopathy which he recommends followup with CT chest in about 2 weeks after post traumatic changes resolve and, if persist, followup with PET. His INR is 2.3. His states that yesterday the neck and shoulder was more swollen than today but that the bruising is much worse today. He has recently been followed by Dr. Harry as an outpatient for 18 month history of cough. His states he had CXR but no prior CT chest. He was on 30 day course of predisone for Ankylosing spondylitis, completed 2 weeks ago. Reportedly had a "steroid shot" in Dr. Harry's office 2 weeks ago. CBC/BMP: 06/01/172122 Significant Findings Laboratory Tests Test 05/31/17 06/01/17 06/02/17 16:43 21:23 10:10 Prothrombin Time 11.9 SEC 14.5 SEC 15.5 SEC (9.8-11.6) (9.8-11.6) (9.8-11.6) Blood Urea Nitrogen 29 MG/DL (7-18) Estimat Glomerular Filtration 81 ML/MIN (>89) Rate Random Glucose 127 MG/DL (74-106) Imaging Last Impressions Chest X-Ray 06/02/17 0000 Signed Impressions: Service Date/Time: Friday, June 02, 2017 11:16 - CONCLUSION: 1. Moderate cardiomegaly. 2. Clear lungs. Matthew Harrington Jr., MD Elbow X-Ray 05/23/17 0129 Signed Impressions: Service Date/Time: Tuesday, May 23, 2017 04:04 - CONCLUSION: No acute fracture/effusion. Lopez Carrillo MD Brain MRI 05/23/17 0000 Signed Impressions: Service Date/Time: Tuesday, May 23, 2017 11:46 - CONCLUSION: 1. 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 2. Bilateral cortical atrophy and chronic white matter changes. Jair Brantley MD Head CT 05/22/17 0669 Signed Impressions: Service Date/Time: May 18:00 - CONCLUSION: 1 cm hypodensity in the right caudate and internal capsule may represent an old infarction. However, in the absence of prior films and with the history of recent trauma, recommend further characterization of this finding with MRI of brain with and without contrast. Matthew Hill MD Neck CT 05/22/17 0000 Signed Impressions: Service Date/Time: May 18:00 - CONCLUSION: Abnormal appearance the left supraclavicular region with greater the 11 cm mass which probably represents 3 adjacent components in contact with each other. One of the components has cystic or necrotic area. There is also a 4th opacity in the posterior lower left neck which surrounds the scapular spine and is more infiltrative in appearance. The findings are highly suspicious for malignancy. Matthew Hill MD Chest CT 05/22/17 0000 Signed Impressions: Service Date/Time: May 18:15 - CONCLUSION: Greater than 11 cm left supraclavicular mass is suspicious for malignancy. There is also a midthoracic right paraspinal mass measuring 4 cm in superior-inferior extent and an 11 mm right pulmonary nodule. Recommend PET/CT scan to evaluate metabolic behavior and to help in decision making regarding biopsy planning. Matthew Hill MD ADDENDUM: Additional history is now available; recent fall and the patient is on anticoagulation. The large mass in the left supraclavicular region has an appearance which is entirely consisted with a hematoma. The mediastinal adenopathy in the 1 cm nodule, however, are not characteristic of trauma. Recommend performing followup CT in one month specifically does the if the lung and mediastinal findings persist and if so, then consideration of PET/CT scan. Matthew Hill MD PE at Discharge GENERAL: Well-nourished, well-developed patient in NAD. Awake and alert. Lying in hospital bed. is at the bedside. SKIN: Warm and dry. No rash. HEENT: Normocephalic. Atraumatic. EOMI. MMM. NECK: Supple. Trachea midline. Dressing left side of neck C/D/I. CARDIOVASCULAR: Regular rate and rhythm. S1, S2 noted. No murmur appreciated. RESPIRATORY: Clear to auscultation but diminished at the bases bilaterally. GASTROINTESTINAL: Abdomen soft, non-tender, nondistended. Normoactive bowel sounds x4. MUSCULOSKELETAL: No obvious deformities. Extremities without clubbing, cyanosis , or edema. NEUROLOGICAL: Awake and alert. Able to move all extremities. Normal speech. PSYCHIATRIC: Appropriate mood and affect; insight and judgment normal. Hospital Course Acute respiratory failure secondary to Large L supraclavicular hematoma (11 cm) , swelling Left posterior neck causing trachea shift and airway compromise s/p intubation/ extubation History of tobacco abuse Ankylosing spondylitis 1.17 cm right pulmonary nodule -CT chest/neck 1.1 cm R pulmonary nodule, peripherally located adjacent to pleura. 2.6 cm mass in right paraspinous region, extending from subcarinal level. 11.3 cm x 7.3 cm L supraclavicular hematoma. Extends posterior to clavicle. No active extravasation. -previously Discussed with Dr. Hill. Recommends repeat CT in 2-4 weeks and if these findings persist, obtain outpatient PET scan. -Patient is known to Dr. Harry, -pulmonary follow-up appreciated- plan to repeat CT chest in three weeks. -CXR 06/01/17 revealed mild CHF. started him on lasix 40mg po daily L supraclavicular hematoma -- s/p evacuation of hematoma 05/24 at bedside. --general surgery follow-up appreciated and pt was cleared from their standpoint - continue OT left upper extremity weakness due to fall -neurology consult appreciated -continue OT Atrial fibrillation with RVR on chronic anticoagulation with warfarin cardiomyopathy Hypertension History of hyperlipidemia Coronary artery disease with prior stents about 12 years ago -Rate controlled. Continue metoprolol - continue to monitor and adjust the regimen as needed. -Patient was no longer on statin per so removed from med rec. -Continue warfarin - ok with surgery. INR subtherapeutic at 1.4. Pharmacy to dose. Continue to monitor INR once in rehab. -2d echo 05/23: EF 40 - 45%, small pericardial effusion without tamponade. CXR (+ )mild CHF. on lasix po. Monitor. Fall History of mild dementia -CT brain - 1 cm hypodensity and right caudate and internal capsule which may represent an old infarction. MRI confirms old infarct. 05/23 -PT following. Acute kidney injury- resolved possible Aspiration -CT chest - bilateral infiltrates posterior lower lung mcbride.(in addition to above discussed finding). Blood cultures negative and sputum culture with normal respiratory jevon - completed course of augmentin -passed swallow evaluation regular, thin liquid diet Anemia Coagulopathy secondary to chronic warfarin -hemoglobin trending up -cleared by surgery to resume anticoagulation Acute left elbow contusion -XR elbow with no acute fracture. Pt Condition on Discharge: Stable Discharge Disposition: Rehab Inpatient Discharge Time: > 30 minutes Discharge Instructions DIET: Follow Instructions for: Heart Healthy Diet Activities you can perform: Regular-No Restrictions Follow up Referrals: PCP Follow-up Pulmonology New Medications: Furosemide (Furosemide) 40 Mg Tab 40 MG PO DAILY Days 30 TAB Metoprolol Succinate ER 24 HR (Metoprolol Succinate ER 24 HR) 50 Mg Tab 50 MG PO DAILY a-fib Days 30 Ref 0 TAB Oxycodone (Oxycodone) 5 Mg Tab 5 MG PO Q4H PRN pain #20 Ref 0 TAB Warfarin (Coumadin) 5 Mg Tab 5 MG PO DAILY@1600 Days 30 TAB Discontinued Medications: Metoprolol Succinate ER 24 HR (Toprol XL) 100 Mg Tab 100 MG PO DAILY #30 Ref 0 TAB Warfarin (Coumadin) 5 Mg Tab 5 MG PO DAILY Blood Clot Prevention #30 Ref 0 TAB Brenna Lambert MD Jun 02, 2017 14:14
[2017-06-02] MEDS: WARFARIN SOD 5 MG TAB PO SCH (15:39)
== END 2017-06-02 16:14 | DRG 208 ==
LOC: NEPE 15:17 → NEDA 18:56 → HIMW 22:00 → N05B 05-27 06:28
PROVIDERS: ADMIT Hospitalist; ATTEND Hospitalist
PROC: 5A1945Z Respiratory Ventilation, 24-96 Consecutive Hours (ICD-10-PCS; principal; 2017-05-22)
PROC: 0BH17EZ Insertion of Endotracheal Airway into Trachea, Via Natural or Artificial Opening (ICD-10-PCS; 2017-05-22)
PROC: 0JC Subcutaneous Tissue and Fascia, Extirpation (ICD-10-PCS; 2017-05-25)
DX: J96.00 Acute respiratory failure, unspecified whether with hypoxia or hypercapnia (principal); J69.0 Pneumonitis due to inhalation of food and vomit; N17.9 Acute kidney failure, unspecified; D68.32 Hemorrhagic disorder due to extrinsic circulating anticoagulants; I48.91 Unspecified atrial fibrillation; F03.90 Unspecified dementia, unspecified severity, without behavioral disturbance, psychotic disturbance, mood disturbance, and anxiety; G54.0 Brachial plexus disorders; I10 Essential (primary) hypertension; I31.3 Pericardial effusion (noninflammatory); D62 Acute posthemorrhagic anemia; E87.1 Hypo-osmolality and hyponatremia; S10.83XA Contusion of other specified part of neck, initial encounter; I50.9 Heart failure, unspecified; I11.0 Hypertensive heart disease with heart failure; J39.8 Other specified diseases of upper respiratory tract; R13.10 Dysphagia, unspecified; M45.9 Ankylosing spondylitis of unspecified sites in spine; R91.1 Solitary pulmonary nodule; I25.10 Atherosclerotic heart disease of native coronary artery without angina pectoris; E78.5 Hyperlipidemia, unspecified; G47.33 Obstructive sleep apnea (adult) (pediatric); E55.9 Vitamin D deficiency, unspecified; I73.9 Peripheral vascular disease, unspecified; S20.219A Contusion of unspecified front wall of thorax, initial encounter; S50.02XA Contusion of left elbow, initial encounter; K21.9 Gastro-esophageal reflux disease without esophagitis; I25.2 Old myocardial infarction; D72.829 Elevated white blood cell count, unspecified; R59.0 Localized enlarged lymph nodes; K22.70 Barrett's esophagus without dysplasia; J38.4 Edema of larynx; W22.09XA Striking against other stationary object, initial encounter; Z79.01 Long term (current) use of anticoagulants; Z85.828 Personal history of other malignant neoplasm of skin; Z86.73 Personal history of transient ischemic attack (TIA), and cerebral infarction without residual deficits; Z87.891 Personal history of nicotine dependence; Z91.19 Patient's noncompliance with other medical treatment and regimen; Z95.5 Presence of coronary angioplasty implant and graft
CPT/HCPCS: 31500; 36600; 70450; 70490; 70553; 71010; 71020; 71260; 73070; 80048; 80053; 81001; 82550; 82552; 82805; 83735; 84100; 84484; 85007; 85018; 85025; 85027; 85610; 85730; 87040; 87070; 87086; 87205; 87641; 93005; 93306; 94002; 94003; 94150; 94640; 94664; 94667; 94668; 96365; 96374; 96375; A9579; C9113; J0456; J0696; J1100; J1170; J1630; J1940; J2543; J3010; J3430; J7040; J7042; J7050; J7613; Q9967